=== PATIENT | male | born 2000 | race Caucasian/White ===

== ENCOUNTER 2020-06-18 17:23 | Emergency (ER) | payer OTHER, SELFPAY ==
--- NOTE | ~2020-06-18 | CT_ITS ---
EXAMINATION: CT HEAD WITHOUT CONTRAST CLINICAL INFORMATION: Trauma. Head injury. COMPARISON: None. TECHNIQUE: Contiguous helical images of the brain were obtained without IV contrast. Multiplanar reconstructions were performed. DLP: 789 mGy-cm. FINDINGS: There are no pathologic extra-axial fluid collections. The lateral, third, fourth ventricles are nondilated and concordant with the appearance of the sulci. There is no evidence for acute intraparenchymal hemorrhage or infarct. There is neither mass nor mass effect. There is no shift of midline structures. The paranasal sinuses and mastoid air cells are clear. There are no osseous lesions. CT/CT head/brain wo con IMPRESSION: No evidence for acute intracranial injury. Automated exposure control (Care Dose) Adjustment of the mA and/or kv according to patient size (this includes techniques or standardized protocols for targeted exams where dose is matched to indication / reason for exam; i.e. extremities or head).
[2020-06-18 20:23] VITALS: BP 148/100; PULSE 79; RESP 16; TEMP 36.8; O2SAT 98; BMI 31.0
--- NOTE | 2020-06-18 21:04 | ED_ITS ---
HPI - Fall General Chief Complaint: Fall Stated Complaint: FALL, HIT HEAD -WORK Time Seen by Provider: 06/18/20 21:02 Source: patient Mode of arrival: ambulatory Limitations: no limitations History of Present Illness HPI Narrative: 20-year-old male who slipped on the ice and fell backward hit his head, patient feels headache, feels spacey, intermittent blurry vision. Otherwise no neck pain, chest pain, or abdominal pain. Related Data Allergies Allergy/AdvReac Type Severity Reaction Status Date / Time No Known Allergies Allergy Verified 06/18/20 20:28 [No Known Allergies*] Review of Systems Review of Systems: All other systems are reviewed and are negative Constitutional: Reports as per HPI and Reports no additional constitutional complaints Eyes: Reports as per HPI and Reports no additional eye complaints Reports system reviewed and no additional complaints, except as documented Cardiovascular: Reports as per HPI and Reports no additional cardiovascular complaints Respiratory: Reports as per HPI and Reports no additional respiratory complaints Gastrointestinal: Reports as per HPI and Reports no additional gastrointestinal complaints Genitourinary: Reports no additional female genitourinary complaints Musculoskeletal: Reports no additional musculoskeletal complaints Skin/Breast: Reports system reviewed and no additional complaints, except as docu Psychiatric: Reports no additional psychiatric complaints Endocrine: Reports no additional endocrine complaints Hematologic/Lymphatic: Reports no additional hematologic/lymphatic complaints Allergic/Immunologic: Reports no additional allergic/immunologic complaints Reports system reviewed and no additional complaints, except as documented and Reports Abnormal speech present [facility] Past Medical History Medical History No known health problems No known health problems Social History Social History Advance Directives: No Advance Directives Information Provided: No Physical Exam Vital Signs: Vital Signs: Last Vital Signs Temp 98.2 F 06/18/20 20:23 Pulse 79 06/18/20 20:23 Resp 16 06/18/20 20:23 BP 148/100 H 06/18/20 20:23 Pulse Ox 98 06/18/20 20:23 Body Mass Index 31.0 Vital signs have been reviewed as appeared to be correct. Blood pressure in the high range. Heart rate normal. Respiration rate normal. Temperature normal. Oxygen saturation normal. Appearance: Alert. Oriented X3. No acute distress. Head: Normal external exam. Normocephalic. Atraumatic. No Jewell signs noted. No raccoon eyes noted Eyes: PERRLA. EOMI. Conjunctiva and sclera normal. Eyelids normal. ENT: TM's Normal. Pharynx normal. Uvula midline. Moist mucous membranes. No trismus noted. No drooling noted. No muffled voice noted. Neck: Normal inspection. Neck supple. FROM. No adenopathy. Thyroid Normal. No meningeal signs. No neck mass noted. CVS: Normal heart rate and rhythm. Heart sound normal. No murmurs noted. Pulses normal throughout. Respiratory: No respiratory distress. Painless inspiration. Breath sounds normal. No wheezes/rales/rhonchi noted. Chest nontender. No accessory muscle usage noted or decreased air movement noted. Abdomen: Soft and nontender. Bowel sounds normal in all 4 quadrants. No distention noted. No organomegaly noted. No visible injury noted. Back: No CVA tenderness. Full range of motion noted. Skin: Skin warm and dry. Normal skin color. Normal skin turgor. No rashes/lesions/lacerations noted. Extremities: No lower extremity edema. Extremities exhibit normal range of motion. Extremities nontender. Neuro: Oriented X 3. No motor deficit. No sensory deficit. Reflexes normal. GCS 15 Course Course Course Narrative: Fall with closed and minor head injury. Mild symptoms. GCS of 15, neuro exam is intact head CT was unremarkable. MDM - Fall Imaging Data CT scan - head: Radiologist's impression: No evidence for acute intracranial injury. Discharge Plan Discharge Clinical Impression: Fall, Closed head injury Patient Disposition: Home, Self-Care Instructions: Head Injury (ED) Referrals: Physician,Unknown [Primary Care Provider] - 2 days
== END 2020-06-18 22:34 | disposition home or self-care (01) ==
PROVIDERS: Emergency Provider Emergency Medicine
DX: S09.90XA Unspecified injury of head, initial encounter (principal); W00.0XXA Fall on same level due to ice and snow, initial encounter; Y93.89 Activity, other specified; Y92.9 Unspecified place or not applicable; Y99.0 Civilian activity done for income or pay
CPT/HCPCS: 70450; 99284

== ENCOUNTER 2022-04-22 17:31 | Emergency (ER) | payer OTHER, SELFPAY ==
[2022-04-22 17:32] VITALS: BP 131/87; PULSE 85; RESP 18; O2SAT 99; BMI 30.1
--- NOTE | 2022-04-22 17:34 | ECG_ITS ---
Test Reason : ANXIETY Blood Pressure : / mmHG Vent. Rate : 070 BPM Atrial Rate : 070 BPM P-R Int : 170 ms QRS Dur : 086 ms QT Int : 346 ms P-R-T Axes : 034 036 030 degrees QTc Int : 373 ms Normal sinus rhythm Normal ECG No previous ECGs available Referred By: Glendy Garner Electronically Signed By:Sheng Cagle
--- NOTE | 2022-04-22 17:35 | ED_ITS ---
HPI - Chest Pain General Chief Complaint: Anxiety <YENI Kaufman - Last Filed: 04/22/22 17:38> Stated Complaint: pressure in chest, fingers are tingly <YENI Kaufman - Last Filed: 04/22/22 17:38> Time Seen by Provider: 04/22/22 19:46 <YENI Kaufman - Last Filed: 04/22/22 17:38> Source: patient <Heather Hayes NP - Last Filed: 04/23/22 00:58> Mode of arrival: ambulatory <Heather Hayes NP - Last Filed: 04/23/22 00:58> Limitations: no limitations <Heather Hayes NP - Last Filed: 04/23/22 00:58> History of Present Illness HPI narrative: 22-year-old male presents with a sharp substernal chest pain with facial tingling and paresthesia to his fingers and his foot. States he gets paresthesia to his foot only when he is driving. He has had these episodes in the past but they have resolved quickly. He is concerned about cardiac comp lications at this time. He does not report palpitations, shortness of breath, dizziness, lightheadedness, weakness, nausea, vomiting, diarrhea fevers or chills. <Heather Hayes NP - Last Filed: 04/23/22 00:58> MD complaint: chest discomfort <Heather Hayes NP - Last Filed: 04/23/22 00:58> Timing of current episode: episodic <Heathre Hayes NP - Last Filed: 04/23/22 00:58> Prior episodes: Yes <Heather Hayes NP - Last Filed: 04/23/22 00:58> Onset: during rest <Heather Hayes NP - Last Filed: 04/23/22 00:58> Pain location: substernal and left chest <Heather Hayes NP - Last Filed: 04/23/22 00:58> Pain radiation: left arm and other (Faced) <JESSE Pickett Last Filed: 04/23/22 00:58> Severity: mild <Heather Hayes NP - Last Filed: 04/23/22 00:58> Quality: aching <Heather Hayes NP - Last Filed: 04/23/22 00:58> Relieving factors: nothing <Heather Hayes NP - Last Filed: 04/23/22 00:58> Treatment prior to arrival: none <Heather Hayes NP - Last Filed: 04/23/22 00:58> Risk Factors Coronary artery disease risk factors: none <Heather Hayes NP - Last Filed: 04/23/22 00:58> Thoracic aortic dissection risk factors: none <Heather Hayes NP - Last Filed: 04/23/22 00:58> Related Data Allergies/Adverse Reactions: Allergies Allergy/AdvReac Type Severity Reaction Status Date / Time No Known Allergies Allergy Verified 06/18/20 20:28 [No Known Allergies*] <YENI Kaufman - Last Filed: 04/22/22 17:38> Review of Systems 2 Review of Systems: Constitutional: No Fever, No Chills ENT/Mouth: No Ear Pain, No Hoarseness, No sore throat Eyes: No Eye Pain, No Swelling, No Redness, No Foreign Body Cardiovascular: Positive Chest Paindiscomfort, No SOB Respiratory: No Cough, No Dyspnea Gastrointestinal: No Nausea, No Vomiting, No Diarrhea, No abdominal Pain Genitourinary: No Dysuria, No Hematuria Musculoskeletal: No joint pain, No Myalgias, No Joint Swelling Skin: No rash Neuro: No Weakness, No Numbness, positive finger and foot Paresthesias, No Dizziness, No Headache Psych: No Anxiety/Panic, No Depression Heme/Lymph: no easy bruising, no Lymphadenopathy Endocrine: No Polyuria, No Polydipsia <Heather Hayes NP - Last Filed: 04/23/22 00:58> Yes all other systems are reviewed and are negative <Heather Hayes NP - Last Filed: 04/23/22 00:58> [facility] Past Medical History Attestation statement: The following information was validated with the patient. <Heather Hayes NP - Last Filed: 04/23/22 00:58> Source: old records reviewed <Heather Hayes NP - Last Filed: 04/23/22 00:58> Medical History: Medical History No known health problems No known health problems <YENI Kaufman - Last Filed: 04/22/22 17:38> Social History Social History: Social History Substance Use Type: Marijuana Advance Directives: No Advance Directives Information Provided: No <YENI Kaufman - Last Filed: 04/22/22 17:38> Physical Exam Vital Signs: Vital Signs: Last Vital Signs Temp 98.2 F 04/22/22 20:26 Pulse 68 04/22/22 20:26 Resp 16 04/22/22 20:26 BP 127/88 04/22/22 20:26 Pulse Ox 97 04/22/22 20:26 O2 Del Method 04/22/22 20:26 BMI result Body Mass Index 30.1 <YENI Kaufman - Last Filed: 04/22/22 17:38> Vital Signs: Last Vital Signs Temp 98.2 F 04/22/22 20:26 Pulse 68 04/22/22 20:26 Resp 16 04/22/22 20:26 BP 127/88 04/22/22 20:26 Pulse Ox 97 04/22/22 20:26 O2 Del Method 04/22/22 20:26 BMI result Body Mass Index 30.1 <Heather Hayes NP - Last Filed: 04/23/22 00:58> Appearance: Alert. Oriented X3. No acute distress. Eyes: Pupils equal, round and reactive to light. ENT: Pharynx normal. Neck: Normal inspection. Neck supple. CVS: Normal heart rate and rhythm. Pulses normal. Respiratory: No respiratory distress. Breath sounds normal. Abdomen: Soft and nontender. Skin: Skin warm and dry. Normal skin color. Normal skin turgor. Extremities: No lower extremity edema. Gait well-balanced well coordinated. Neuro: No motor deficit. No sensory deficit. Cranial nerves 2-12 intact <Heather Hayes NP - Last Filed: 04/23/22 00:58> Course Course Course Narrative: 22 yo male with history of high cholesterol presents to the ER with intermittent middle and left sided chest pains for the last few days. He reports the pains are sharp and come randomly, usually last about an hour and then go away. He states sometimes they are associated with perioral numbness and numbness of both of his hands. He reports difficulty concentrating and lightheadedness as well. Mom reports strong family history of cardiac issues including grandfather who had triple bypass at age 40. VSS on arrival and patient appears well. Will get EKG, CXR, lab workup. <YENI Kaufman - Last Filed: 04/22/22 17:38> 22 yo male with history of high cholesterol presents to the ER with intermittent middle and left sided chest pains for the last few days. He reports the pains are sharp and come randomly, usually last about an hour and then go away. He states sometimes they are associated with perioral numbness and numbness of both of his hands. He reports difficulty concentrating and lightheadedness as well. Mom reports strong family history of cardiac issues including grandfather who had triple bypass at age 40. VSS on arrival and patient appears well. Will get EKG, CXR, lab workup. 20:27 workup negative. I did discuss his negative workup, patient does have concerns because his grandfather was diagnosed with glioblastoma at age 50, and his father had open-heart surgery at age 49. At this time I do not feel that further imaging is required, patient can have an outpatient CT scan through his primary care physician if he is concerned about glioblastoma. Patient is neurologically intact, has full range of motion to all extremities, cranial nerves 2-12 intact. Patient does not have any indication for emergent CT scan at this time. Chest x-rays negative for acute findings. Troponins are negative. The patient's lab values are within normal limits. Low likelihood of ACS at this time. 00:56 COVID influenza RSV negative. I called this patient to update him as negative results. <Heather Hayes NP - Last Filed: 04/23/22 00:58> Medical Decision Making Differential Diagnosis Differential Diagnoses: The differential diagnosis associated with the presentation includes <Heather Hayes NP - Last Filed: 04/23/22 00:58> COVID, influenza, RSV, anxiety, ACS <Heather Hayes NP - Last Filed: 04/23/22 00:58> Admission/Observation Consideration of admission/observation: Escalation of care including admission/observation considered <Heather Hayes NP - Last Filed: 04/23/22 00:58> Patient does not require admission <Heather Hayes NP - Last Filed: 00:58> Lab Data MDM Lab Attestation statement: I reviewed the patient's lab results. <Heather Hayes NP - Last Filed: 04/23/22 00:58> Result Diagrams: : 04/22/22 18:37 04/22/22 18:37 <YENI Kaufman - Last Filed: 04/22/22 17:38> Labs: Lab Results 04/22/22 04/22/22 04/22/22 Range/Units 18:37 18:37 18:37 WBC 6.9 (4.8-10.8) X10*3/uL RBC 5.40 (4.60-5.80) X10*6/uL Hgb 15.0 (14.0-18.0) g/dl Hct 43.7 (42.0-52.0) % MCV 80.9 (80.0-98.0) fL MCH 27.8 (27.0-33.0) pg MCHC 34.3 (31.0-36.0) g/dl RDW 12.6 (11.0-16.0) % Plt Count 283 (160-400) X10*3/uL MPV 9.7 (9.4-12.4) fL Immature Gran % (Auto) 0.3 (0.0-0.4) % Neut % (Auto) 59.9 (45-73) % Lymph % (Auto) 30.2 (20-40) % Woodward % (Auto) 6.4 (2-11) % Eos % (Auto) 2.6 (0-4) % Baso % (Auto) 0.6 (0-2) % Lymph # (Auto) 2.1 (1.2-4.9) X10*3/uL Woodward # (Auto) 0.4 (0.1-1.2) X10*3/uL Eos # (Auto) 0.2 (0.0-0.4) X10*3/uL Baso # (Auto) 0.0 (0.0-0.2) X10*3/uL Abs Immat Gran (auto) 0.02 (0.00-0.03) X10*3/uL Absolute Neuts (auto) 4.1 (2.0-8.3) x10*3/uL Absolute Nucleated RBC 0.000 (0.0-0.012) X10*3/uL Nucleated RBC % (auto) 0.0 (0.0-0.2) /100WBC Sodium 139 (135-145) mmol/L Potassium 3.9 (3.3-5.1) mmol/L Chloride 104 (96-108) mmol/L Carbon Dioxide 25 (22-29) mmol/L Anion Gap 14 (12-20) BUN 16 (9-16) mg/dL Creatinine 0.87 (0.5-1.4) mg/dL Estim Creat Clear Calc 147.0 Estimated GFR > 60 Random Glucose 101 (60-115) mg/dL Calcium 9.9 (8.4-10.2) mg/dL Magnesium 2.3 (1.6-2.6) mg/dL Total Bilirubin 0.5 (0.0-1.0) mg/dL Direct Bilirubin 0.2 (0.0-0.5) mg/dL AST 24 (5-37) U/L ALT 22 (0-40) U/L Alkaline Phosphatase 61 (39-117) U/L Troponin I High Sens < 3.5 (<3.5-35.0) ng/L Total Protein 7.7 (6.5-8.0) g/dL Albumin 4.7 (3.5-5.0) g/dL Influenza Type A (PCR) (Negative) Influenza Type B (PCR) (Negative) RSV RNA Qual (PCR) (Negative) SARS-CoV-2 RNA (RT-PCR) (Negative) 04/22/22 Range/Units 20:25 WBC (4.8-10.8) X10*3/uL RBC (4.60-5.80) X10*6/uL Hgb (14.0-18.0) g/dl Hct (42.0-52.0) % MCV (80.0-98.0) fL MCH (27.0-33.0) pg MCHC (31.0-36.0) g/dl RDW (11.0-16.0) % Plt Count (160-400) X10*3/uL MPV (9.4-12.4) fL Immature Gran % (Auto) (0.0-0.4) % Neut % (Auto) (45-73) % Lymph % (Auto) (20-40) % Woodward % (Auto) (2-11) % Eos % (Auto) (0-4) % Baso % (Auto) (0-2) % Lymph # (Auto) (1.2-4.9) X10*3/uL Woodward # (Auto) (0.1-1.2) X10*3/uL Eos # (Auto) (0.0-0.4) X10*3/uL Baso # (Auto) (0.0-0.2) X10*3/uL Abs Immat Gran (auto) (0.00-0.03) X10*3/uL Absolute Neuts (auto) (2.0-8.3) x10*3/uL Absolute Nucleated RBC (0.0-0.012) X10*3/uL Nucleated RBC % (auto) (0.0-0.2) /100WBC Sodium (135-145) mmol/L Potassium (3.3-5.1) mmol/L Chloride (96-108) mmol/L Carbon Dioxide (22-29) mmol/L Anion Gap (12-20) BUN (9-16) mg/dL Creatinine (0.5-1.4) mg/dL Estim Creat Clear Calc Estimated GFR Random Glucose (60-115) mg/dL Calcium (8.4-10.2) mg/dL Magnesium (1.6-2.6) mg/dL Total Bilirubin (0.0-1.0) mg/dL Direct Bilirubin (0.0-0.5) mg/dL AST (5-37) U/L ALT (0-40) U/L Alkaline Phosphatase (39-117) U/L Troponin I High Sens (<3.5-35.0) ng/L Total Protein (6.5-8.0) g/dL Albumin (3.5-5.0) g/dL Influenza Type A (PCR) NEGATIVE (Negative) Influenza Type B (PCR) NEGATIVE (Negative) RSV RNA Qual (PCR) NEGATIVE (Negative) SARS-CoV-2 RNA (RT-PCR) NEGATIVE (Negative) <YENI Kaufman - Last Filed: 04/22/22 17:38> Lab Results 04/22/22 04/22/22 04/22/22 Range/Units 18:37 18:37 18:37 WBC 6.9 (4.8-10.8) X10*3/uL RBC 5.40 (4.60-5.80) X10*6/uL Hgb 15.0 (14.0-18.0) g/dl Hct 43.7 (42.0-52.0) % MCV 80.9 (80.0-98.0) fL MCH 27.8 (27.0-33.0) pg MCHC 34.3 (31.0-36.0) g/dl RDW 12.6 (11.0-16.0) % Plt Count 283 (160-400) X10*3/uL MPV 9.7 (9.4-12.4) fL Immature Gran % (Auto) 0.3 (0.0-0.4) % Neut % (Auto) 59.9 (45-73) % Lymph % (Auto) 30.2 (20-40) % Woodward % (Auto) 6.4 (2-11) % Eos % (Auto) 2.6 (0-4) % Baso % (Auto) 0.6 (0-2) % Lymph # (Auto) 2.1 (1.2-4.9) X10*3/uL Woodward # (Auto) 0.4 (0.1-1.2) X10*3/uL Eos # (Auto) 0.2 (0.0-0.4) X10*3/uL Baso # (Auto) 0.0 (0.0-0.2) X10*3/uL Abs Immat Gran (auto) 0.02 (0.00-0.03) X10*3/uL Absolute Neuts (auto) 4.1 (2.0-8.3) x10*3/uL Absolute Nucleated RBC 0.000 (0.0-0.012) X10*3/uL Nucleated RBC % (auto) 0.0 (0.0-0.2) /100WBC Sodium 139 (135-145) mmol/L Potassium 3.9 (3.3-5.1) mmol/L Chloride 104 (96-108) mmol/L Carbon Dioxide 25 (22-29) mmol/L Anion Gap 14 (12-20) BUN 16 (9-16) mg/dL Creatinine 0.87 (0.5-1.4) mg/dL Estim Creat Clear Calc 147.0 Estimated GFR > 60 Random Glucose 101 (60-115) mg/dL Calcium 9.9 (8.4-10.2) mg/dL Magnesium 2.3 (1.6-2.6) mg/dL Total Bilirubin 0.5 (0.0-1.0) mg/dL Direct Bilirubin 0.2 (0.0-0.5) mg/dL AST 24 (5-37) U/L ALT 22 (0-40) U/L Alkaline Phosphatase 61 (39-117) U/L Troponin I High Sens < 3.5 (<3.5-35.0) ng/L Total Protein 7.7 (6.5-8.0) g/dL Albumin 4.7 (3.5-5.0) g/dL Influenza Type A (PCR) (Negative) Influenza Type B (PCR) (Negative) RSV RNA Qual (PCR) (Negative) SARS-CoV-2 RNA (RT-PCR) (Negative) 04/22/22 Range/Units 20:25 WBC (4.8-10.8) X10*3/uL RBC (4.60-5.80) X10*6/uL Hgb (14.0-18.0) g/dl Hct (42.0-52.0) % MCV (80.0-98.0) fL MCH (27.0-33.0) pg MCHC (31.0-36.0) g/dl RDW (11.0-16.0) % Plt Count (160-400) X10*3/uL MPV (9.4-12.4) fL Immature Gran % (Auto) (0.0-0.4) % Neut % (Auto) (45-73) % Lymph % (Auto) (20-40) % Woodward % (Auto) (2-11) % Eos % (Auto) (0-4) % Baso % (Auto) (0-2) % Lymph # (Auto) (1.2-4.9) X10*3/uL Woodward # (Auto) (0.1-1.2) X10*3/uL Eos # (Auto) (0.0-0.4) X10*3/uL Baso # (Auto) (0.0-0.2) X10*3/uL Abs Immat Gran (auto) (0.00-0.03) X10*3/uL Absolute Neuts (auto) (2.0-8.3) x10*3/uL Absolute Nucleated RBC (0.0-0.012) X10*3/uL Nucleated RBC % (auto) (0.0-0.2) /100WBC Sodium (135-145) mmol/L Potassium (3.3-5.1) mmol/L Chloride (96-108) mmol/L Carbon Dioxide (22-29) mmol/L Anion Gap (12-20) BUN (9-16) mg/dL Creatinine (0.5-1.4) mg/dL Estim Creat Clear Calc Estimated GFR Random Glucose (60-115) mg/dL Calcium (8.4-10.2) mg/dL Magnesium (1.6-2.6) mg/dL Total Bilirubin (0.0-1.0) mg/dL Direct Bilirubin (0.0-0.5) mg/dL AST (5-37) U/L ALT (0-40) U/L Alkaline Phosphatase (39-117) U/L Troponin I High Sens (<3.5-35.0) ng/L Total Protein (6.5-8.0) g/dL Albumin (3.5-5.0) g/dL Influenza Type A (PCR) NEGATIVE (Negative) Influenza Type B (PCR) NEGATIVE (Negative) RSV RNA Qual (PCR) NEGATIVE (Negative) SARS-CoV-2 RNA (RT-PCR) NEGATIVE (Negative) <Heather Hayes NP - Last Filed: 04/23/22 00:58> Independent Interpretation I performed an independent interpretation of an: EKG and Plain X-Ray <Heather Hayes NP - Last Filed: 04/23/22 00:58> Radiology Impression Discussion of test interpretation with radiology: I have reviewed the radiologist's reading. <Heather Hayes NP - Last Filed: 04/23/22 00:58> Radiologist Impression: EXAMINATION: XR CHEST CLINICAL INFORMATION: Chest pain. COMPARISON: Chest CT dated 09/14/2015. TECHNIQUE: 2 views of the chest were obtained. FINDINGS: No significant abnormality is noted involving the heart, lungs, mediastinum, bony thorax or soft tissues. XR/XR chest 2V IMPRESSION: No acute cardiopulmonary process. <Heather Hayes NP - Last Filed: 04/23/22 00:58> Independent Historian Clinical information obtained from an independent historian. History obtained from or confirmed by: Parent <Heather Hayes NP - Last Filed: 04/23/22 00:58> Discharge Plan Discharge Clinical Impression: Acute anxiety, Chest discomfort <YENI Kaufman - Last Filed: 04/22/22 17:38> Patient Disposition: Home, Self-Care <YENI Kaufman - Last Filed: 04/22/22 17:38> Instructions: Noncardiac Chest Pain (ED), Anxiety (ED) <YENI Kaufman - Last Filed: 04/22/22 17:38> Additional Instructions: You were evaluated for noncardiac chest pain. Your chest x-ray is negative. Your cardiac enzymes are 0. Your EKG is normal sinus. Your lab values are unremarkable. This is a low likelihood for a cardiac event. You do have a family history of glioblastoma, please follow-up with your primary care physician for an outpatient CT scan of your head. Your COVID influenza RSV tests are pending. I will call you with your results. Thank you for choosing this emergency department for evaluation. Please follow-up with primary care physician as needed. Return to the emergency department for any new, concerning, or worsening symptoms. <YENI Kaufman - Last Filed: 04/22/22 17:38> Stand Alone Forms: Work/School Release <YENI Kaufman - Last Filed: 04/22/22 17:38> Interventions: ED Discharge Assessment Last Done: 04/22/22 20:41 <YENI Kaufman - Last Filed: 04/22/22 17:38> Discharge Date/Time: 04/22/22 20:42 <YENI Kaufman - Last Filed: 04/22/22 17:38>
[2022-04-22 18:51] LABS: MANUAL DIFF FLAG NO
[2022-04-22 18:55] LABS: Basophils Percent Auto 0.6 % (0-2); Eosinophils Absolute Auto 0.2 X10*3/uL (0.0-0.4); Eosinophils Percent Auto 2.6 % (0-4); Hematocrit 43.7 % (42.0-52.0); Imm Gran Abs Auto 0.02 X10*3/uL (0.00-0.03); Imm Gran Pct Auto 0.3 % (0.0-0.4); Lymphocytes Absolute Auto 2.1 X10*3/uL (1.2-4.9); Lymphocytes Percent Auto 30.2 % (20-40); Mean Corpuscular HGB Conc 34.3 g/dl (31.0-36.0); Mean Corpuscular Hemoglobin 27.8 pg (27.0-33.0); Mean Corpuscular Volume 80.9 fL (80.0-98.0); Mean Platelet Volume 9.7 fL (9.4-12.4); Monocytes Absolute Auto 0.4 X10*3/uL (0.1-1.2); Monocytes Percent Auto 6.4 % (2-11); Neutrophils Absolute Auto 4.1 x10*3/uL (2.0-8.3); Neutrophils Percent Auto 59.9 % (45-73); Platelet Count 283 X10*3/uL (160-400); Red Cell Distribution Width 12.6 % (11.0-16.0); White Blood Count 6.9 X10*3/uL (4.8-10.8)
[2022-04-22 19:20] LABS: Alanine Aminotransferase 22 U/L (0-40); Albumin Level 4.7 g/dL (3.5-5.0); Alkaline Phosphatase 61 U/L (39-117); Anion Gap 14 (12-20); Aspartate Amino Transferase 24 U/L (5-37); Bilirubin Direct 0.2 mg/dL (0.0-0.5); Bilirubin Total 0.5 mg/dL (0.0-1.0); Blood Urea Nitrogen 16 mg/dL (9-16); Calcium 9.9 mg/dL (8.4-10.2); Carbon Dioxide 25 mmol/L (22-29); Chloride 104 mmol/L (96-108); Estimated Glomerular Filt Rate > 60; Glucose Random 101 mg/dL (60-115); Magnesium 2.3 mg/dL (1.6-2.6); Potassium 3.9 mmol/L (3.3-5.1); Sodium 139 mmol/L (135-145); Total Protein 7.7 g/dL (6.5-8.0)
[2022-04-22 19:29] LABS: Troponin-I High Sensitivity < 3.5 ng/L (<3.5-35.0)
[2022-04-22 20:26] VITALS: BP 127/88; PULSE 68; RESP 16; TEMP 36.8; O2SAT 97
[2022-04-22 21:11] LABS: Influenza A PCR NEGATIVE (Negative); Influenza B PCR NEGATIVE (Negative); Resp Syncy Virus RNA Qual PCR NEGATIVE (Negative); SARS COV2 PCR INHOUSE NEGATIVE (Negative)
== END 2022-04-22 20:42 | disposition home or self-care (01) ==
PROVIDERS: Nurse Practitioner Family; Physician Assistant; Emergency Provider Emergency Medicine; PCP Internal Medicine
DX: R07.89 Other chest pain (principal); R20.2 Paresthesia of skin; F41.1 Generalized anxiety disorder; F43.0 Acute stress reaction; Z20.822 Contact with and (suspected) exposure to COVID-19; Z79.899 Other long term (current) drug therapy
CPT/HCPCS: 0241U; 36415; 71046; 80048; 80076; 83735; 84484; 85025; 93005; 99283

== ENCOUNTER 2022-10-26 20:05 | Emergency (ER) | payer OTHER, SELFPAY ==
--- NOTE | ~2022-10-26 | US_ITS ---
EXAMINATION: US ABDOMEN LIMITED CLINICAL INFORMATION: Right upper quadrant pain. COMPARISON: None available. TECHNIQUE: Real-time imaging of the right upper quadrant abdominal viscera. FINDINGS: PANCREAS: Normal. LIVER: The liver is normal in size. The liver contour is normal. Parenchymal echogenicity is increased. No focal hepatic lesion. There is no intrahepatic biliary duct dilatation seen. GALLBLADDER: Normal. The gallbladder is physiologically distended without evidence of stones, sludge, polyps, wall thickening or pericholecystic fluid. COMMON BILE DUCT: Normal in caliber measuring 0.3 cm in diameter. RIGHT KIDNEY: Normal. No hydronephrosis. No renal calculi or focal parenchymal lesions. The kidney measures 10.0 cm in maximum dimension. FREE FLUID: None. US/US abdomen limited IMPRESSION: Mild hepatic steatosis without focal lesion. Gallbladder, CBD and the right kidney is unremarkable
[2022-10-26 20:13] VITALS: BP 127/95; PULSE 69; RESP 18; TEMP 36.3; O2SAT 98; BMI 27.1
--- NOTE | 2022-10-26 20:14 | ED.ABDPAIN ---
HPI - Abdominal Pain General Chief Complaint: Abdominal Pain Stated Complaint: Abdominal Pain Time Seen by Provider: 10/26/22 21:28 Source: patient, RN notes reviewed and old records reviewed Mode of arrival: ambulatory Limitations: no limitations History of Present Illness HPI narrative: A 22-year-old male who denies any past medical history presents for evaluation of abdominal pain Patient reports upper abdominal pain that started about 3 days ago. Denies any nausea vomiting fevers, chills. He reports some diarrhea started up over the last 2 days Denies any black or bloody stool Denies any history abdominal surgeries He has not taken any medications to help alleviate his symptoms No other complaints or concerns at this time Related Data Previous Rx's Medication Instructions Recorded calcium carbonate 1,000 1 tab PO QID PRN indigestion #20 10/26/22 mg-simethicone 60 mg chewable tabs tablet (Antacid Anti-Gas (calcium carb-simeth)) Allergies Allergy/AdvReac Type Severity Reaction Status Date / Time No Known Allergies Allergy Verified 06/18/20 20:28 [No Known Allergies*] Review of Systems Constitutional: Reports as per HPI, Denies chills, Denies fatigue, Denies fever(s) and Denies headache(s) Denies headache(s) Cardiovascular: Denies chest pain and Denies dyspnea Respiratory: Denies cough and Denies dyspnea Gastrointestinal: Reports abdominal pain, Denies hematochezia, Denies constipation, Reports loose stools and Denies vomiting Genitourinary: Denies difficulty urinating and Denies dysuria Denies headache(s) and Denies focal weakness Endocrine: Denies fatigue PMFSH Past Medical History Medical History No known health problems No known health problems Social History Social History Substance Use Type: Marijuana Advance Directives: No Advance Directives Information Provided: No Physical Exam ED Vital Signs: Vital Signs - 24 hr 10/26/22 20:13 Temperature 97.3 F Pulse Rate 69 Respiratory Rate 18 Blood Pressure 127/95 H Pulse Oximetry 98 Oxygen Delivery Method Room Air BMI result Body Mass Index 27.1 Const General: healthy appearing, comfortable, no acute distress, alert and awake Nutritional Appearance: well nourished Orientation/consciousness: patient oriented x3 HENMT Head: Yes normocephalic and Yes atraumatic Eyes Eyelids: Yes eyelids normal Conjunctivae: conjunctivae normal Sclerae: sclerae normal Corneas: corneas normal Pupils: Equal, round and reactive pupils present EOM: EOMs intact bilaterally Neck Neck: Yes full ROM Resp Effort & Inspection: normal respiratory effort, able to speak in complete sentences and not labored GI Inspection: No distended Palpation (GI): Soft to palpation, not firm, Tenderness to palpation present (GI) in the epigastrum, in the LUQ and in the RUQ, no guarding and not rigid Auscultation: normoactive bowel sounds Skin General skin exam: no rashes or lesions noted and elasticity normal Neuro General: patient oriented x3 Cranial nerves: Yes Equal, round and reactive pupils present and Yes Bilaterally intact EOM present Cognition (Neuro): normal cognition Extrem Other: Moving all extremities well without any obvious deformities Course Course Course Narrative: RME: 22yo M w/no sig PMHx c/o upper abdominal pain x1 week worsening x3 days, sent in from for suspected gallbladder dz. Admits eating makes pain worse. denies fever, N/V, urinary sx Abdomen soft, +RUQ/epigastic ttp, +Phillips's Labs, UA, US ordered Full HPI, ROS and PE to be performed by primary ED provider. Medical Decision Making Medical Decision Making [facility] Narrative: 22-year-old male presents for evaluation of upper abdominal pain, his pain is unrelated to eating. He denies nausea vomiting but endorses diarrhea. He is tender in epigastric and right upper quadrant. Abdomen is soft, nondistended. Less likely to be surgical abdomen. Ultrasound gallbladder shows no evidence of gallstones or cholecystitis. His labs are without significant abnormality. Symptoms most likely related to viral gastroenteritis which was discussed with the patient. Differential Diagnosis Abdominal pain Gastritis Gastroenteritis Peptic ulcer disease Cholelithiasis Acute cholecystitis Admission/Observation Consideration of admission/observation: Escalation of care including admission/observation considered (And was felt to not be necessary after the patient's labs did not show any concerning abnormalities the patient's ultrasound did not show any evidence of biliary disease) Lab Data [facility] Lab Attestation statement: I reviewed the patient's lab results. (No leukocytosis, no left shift. Creatinine within normal limits, GFR over 60, electrolytes within normal limits. LFTs within normal limits) 10/26/22 20:22 10/26/22 20:22 Labs: Lab Results 10/26/22 10/26/22 Range/Units 20:22 20:22 WBC 8.0 (4.8-10.8) X10*3/uL RBC 5.40 (4.60-5.80) X10*6/uL Hgb 14.7 (14.0-18.0) g/dl Hct 44.7 (42.0-52.0) % MCV 82.8 (80.0-98.0) fL MCH 27.2 (27.0-33.0) pg MCHC 32.9 (31.0-36.0) g/dl RDW 13.2 (11.0-16.0) % Plt Count 253 (160-400) X10*3/uL MPV 9.5 (9.4-12.4) fL Immature Gran % (Auto) 0.2 (0.0-0.4) % Neut % (Auto) 56.2 (45-73) % Lymph % (Auto) 31.1 (20-40) % Marshall % (Auto) 9.3 (2-11) % Eos % (Auto) 2.7 (0-4) % Baso % (Auto) 0.5 (0-2) % Lymph # (Auto) 2.5 (1.2-4.9) X10*3/uL Marshall # (Auto) 0.8 (0.1-1.2) X10*3/uL Eos # (Auto) 0.2 (0.0-0.4) X10*3/uL Baso # (Auto) 0.0 (0.0-0.2) X10*3/uL Abs Immat Gran (auto) 0.02 (0.00-0.03) X10*3/uL Absolute Neuts (auto) 4.5 (2.0-8.3) x10*3/uL Absolute Nucleated RBC 0.000 (0.0-0.012) X10*3/uL Nucleated RBC % (auto) 0.0 (0.0-0.2) /100WBC Sodium 135 (135-145) mmol/L Potassium 4.0 (3.3-5.1) mmol/L Chloride 102 (96-108) mmol/L Carbon Dioxide 27 (22-29) mmol/L Anion Gap 10 L (12-20) BUN 23 H (9-16) mg/dL Creatinine 0.95 (0.5-1.4) mg/dL Estim Creat Clear Calc 131.6 Estimated GFR > 60 Random Glucose 97 (60-115) mg/dL Calcium 9.7 (8.4-10.2) mg/dL Magnesium 2.2 (1.6-2.6) mg/dL Total Bilirubin 0.5 (0.0-1.0) mg/dL Direct Bilirubin 0.1 (0.0-0.5) mg/dL AST 24 (5-37) U/L ALT 29 (0-40) U/L Alkaline Phosphatase 56 (39-117) U/L Total Protein 8.2 H (6.5-8.0) g/dL Albumin 4.5 (3.5-5.0) g/dL Lipase 23 (8-78) U/L Radiology Impression Discussion of test interpretation with radiology: I have reviewed the radiologist's reading. (No evidence of gallstones or acute cholecystitis) Discharge Plan Discharge Clinical Impression: Abdominal pain Patient Disposition: Home, Self-Care Instructions: Gastroenteritis (ED) Additional Instructions: Your workup in the emergency department today was reassuring. Next this includes your blood work, ultrasound. Your symptoms are most likely attributed to a viral gastroenteritis You may take Maalox for breakthrough abdominal pain. Use this as needed for abdominal cramps Avoid spicy, greasy foods Hydrate well Prescriptions: New Antacid Anti-Gas (ca carb-sim) 1,000-60 mg tablet,chewable 1 tab PO QID PRN (Reason: indigestion) Qty: 20 0RF
[2022-10-26 20:29] LABS: MANUAL DIFF FLAG NO
[2022-10-26 20:30] LABS: Basophils Percent Auto 0.5 % (0-2); Eosinophils Absolute Auto 0.2 X10*3/uL (0.0-0.4); Eosinophils Percent Auto 2.7 % (0-4); Hematocrit 44.7 % (42.0-52.0); Hemoglobin 14.7 g/dl (14.0-18.0); Imm Gran Abs Auto 0.02 X10*3/uL (0.00-0.03); Imm Gran Pct Auto 0.2 % (0.0-0.4); Lymphocytes Absolute Auto 2.5 X10*3/uL (1.2-4.9); Lymphocytes Percent Auto 31.1 % (20-40); Mean Corpuscular HGB Conc 32.9 g/dl (31.0-36.0); Mean Corpuscular Hemoglobin 27.2 pg (27.0-33.0); Mean Corpuscular Volume 82.8 fL (80.0-98.0); Mean Platelet Volume 9.5 fL (9.4-12.4); Monocytes Absolute Auto 0.8 X10*3/uL (0.1-1.2); Monocytes Percent Auto 9.3 % (2-11); Neutrophils Absolute Auto 4.5 x10*3/uL (2.0-8.3); Neutrophils Percent Auto 56.2 % (45-73); Platelet Count 253 X10*3/uL (160-400); Red Cell Distribution Width 13.2 % (11.0-16.0)
[2022-10-26 20:44] LABS: Alanine Aminotransferase 29 U/L (0-40); Albumin Level 4.5 g/dL (3.5-5.0); Alkaline Phosphatase 56 U/L (39-117); Anion Gap 10 (12-20); Aspartate Amino Transferase 24 U/L (5-37); Bilirubin Direct 0.1 mg/dL (0.0-0.5); Bilirubin Total 0.5 mg/dL (0.0-1.0); Blood Urea Nitrogen 23 mg/dL (9-16); Calcium 9.7 mg/dL (8.4-10.2); Carbon Dioxide 27 mmol/L (22-29); Chloride 102 mmol/L (96-108); Creatinine Clr Calc Pharmacy 131.6; Estimated Glomerular Filt Rate > 60; Glucose Random 97 mg/dL (60-115); Lipase 23 U/L (8-78); Magnesium 2.2 mg/dL (1.6-2.6); Sodium 135 mmol/L (135-145); Total Protein 8.2 g/dL (6.5-8.0)
== END 2022-10-26 22:22 | disposition home or self-care (01) ==
PROVIDERS: Physician Assistant; Emergency Provider Student in an Organized Health Care Education/Training Program; PCP Internal Medicine
DX: R10.11 Right upper quadrant pain (principal)
CPT/HCPCS: 36415; 76705; 80048; 80076; 83690; 83735; 85025; 99282; 99284

== ENCOUNTER 2024-04-27 11:37 | Emergency (ER) | payer OTHER, SELFPAY ==
--- NOTE | ~2024-04-27 | CT_ITS ---
CLINICAL HISTORY: fall with posterior head strike on pavement CT head without contrast Comparison: [place] - CT HEAD/BRAIN WO CON - 06/18/20 21:17 EST Findings: No intra-axial mass, midline shift, hydrocephalus, or acute hemorrhage. No significant atrophy-like change or white matter disease. Small mucous retention cyst within the left maxillary sinus. The orbits are within normal limits. No skull fracture. IMPRESSION: No skull fracture or intracranial hemorrhage. This document has been electronically signed by: Rosio Wilkes MD on 04/27/2024 16:55:37
--- NOTE | ~2024-04-27 | XR_ITS ---
CLINICAL HISTORY: fall onto left upper arm 2 view left humerus Comparison: None Findings: No fractures or dislocations. No significant arthritic change. No radiopaque foreign body. IMPRESSION: 1. Normal left humerus This document has been electronically signed by: Rosio Wilkes MD on 04/27/2024 13:50:50
--- NOTE | ~2024-04-27 | CT_ITS ---
CLINICAL HISTORY: falll, posterior HS on pavement, L neck pain CT cervical spine without contrast Comparison: None Findings: Vertebral alignment is within normal limits. No significant degenerative change. There is a mild chronic appearing compression fracture involving the superior endplate of T1. No acute cervical spine fracture. Visualized intracranial contents are unremarkable. No cervical fluid collections or masses. Lung apices are clear. IMPRESSION: No acute cervical spine fracture. This document has been electronically signed by: Rosio Wilkes MD on 04/27/2024 16:52:23
--- NOTE | ~2024-04-27 | XR_ITS ---
CLINICAL HISTORY: fall onto left elbow, pain w flexion 3 view left elbow Comparison: None Findings: Bones intact. No dislocations. No significant loss of joint space, osteophytes, or erosions. No joint effusion. No radiopaque foreign body. IMPRESSION: 1. No acute findings This document has been electronically signed by: Rosio Wilkes MD on 04/27/2024 13:48:50
--- NOTE | ~2024-04-27 | XR_ITS ---
CLINICAL HISTORY: fall onto L shoulder, pain on abduction 3 view left shoulder Comparison: None Findings: No fractures or dislocations. No significant arthritic change. No erosions. No radiopaque foreign body. IMPRESSION: 1. No acute findings This document has been electronically signed by: Rosio Wilkes MD on 04/27/2024 13:51:03
[2024-04-27 11:57] VITALS: BP 144/77; PULSE 83; RESP 20; TEMP 36.7; O2SAT 99; BMI 30.9
--- NOTE | 2024-04-27 11:57 | ED_ITS ---
HPI - Extremity Injury (Upper) General Chief Complaint: Fall Stated Complaint: fall on ice, shoulder/elbow pain Time Seen by Provider: 04/27/24 15:31 Source: patient Mode of arrival: ambulatory Limitations: no limitations History of Present Illness ED Provider: Kennedi Bailey PA-C HPI narrative: Patient is a 24 year old assigned male at with no reported medical history presenting to the emergency department today with left shoulder and elbow pain after slipping on the ice. Patient states that today he slipped on the ice, landing on his back and injuring his left shoulder / elbow. Patient denies any loss of consciousness with the incident, dizziness, lightheadedness, abdominal pain, nausea, vomiting, fever, chills, blurry vision, double vision, loss of vision, chest pain, difficulty breathing, shortness of breath, back pain, night sweats, pain with urination, increased urinary frequency, increased urinary urgency, blood in his urine or stool, syncope or a near syncopal episode, bowel incontinence, bladder incontinence, or any other complaints at this time. Patient states that he is having some numbness and tingling going down the pinky side of his left arm and is having a hard time getting his left arm to be comfortable. Associated symptoms: denies other symptoms Related Data Previous Rx's ?Medication ?Instructions ?Recorded calcium carbonate 1,000 1 tab PO QID PRN indigestion #20 10/26/22 mg-simethicone 60 mg chewable tabs tablet (Antacid Anti-Gas (calcium carb-simeth)) Allergies Allergy/AdvReac Type Severity Reaction Status Date / Time No Known Allergies Allergy Verified 04/27/24 11:59 [No Known Allergies*] Review of Systems Constitutional: Constitutional: Reports no additional constitutional complaints, Denies chills, Denies fever(s) and Denies night sweats Eyes: Eyes: Reports no additional eye complaints, Denies blurry vision, Denies change in vision, Denies diplopia, Denies eye discharge, Denies loss of vision and Denies eye pain ENT: Denies dizziness Cardiovascular: Cardiovascular: Reports no additional cardiovascular complaints, Denies chest pain, Denies lightheadedness, Denies Loss of Consciousness and Denies dyspnea Respiratory: Respiratory: Reports no additional respiratory complaints and Denies dyspnea Gastrointestinal: Gastrointestinal: Reports no additional gastrointestinal complaints, Denies abdominal pain, Denies melena, Denies hematochezia, Denies change in bowel habits and Denies change in stool character Genitourinary: Genitourinary: Reports no additional male genitourinary complaints, Denies hematuria, Denies oliguria, Denies difficulty urinating, Denies dysuria, Denies urinary frequency, Denies urinary hesitancy, Denies urinary incontinence and Denies urinary urgency Musculoskeletal: Musculoskeletal: Reports no additional musculoskeletal complaints Comments: left elbow and shoulder pain tingling down the pinky finger side of his left arm Neurologic: Denies dizziness and Denies loss of vision Psychiatric: Psychiatric: Reports no additional psychiatric complaints Endocrine: Endocrine: Reports no additional endocrine complaints Hematologic/Lymphatic: Hematologic/Lymphatic: Reports no additional hematologic/lymphatic complaints Allergic/Immunologic: Allergic/Immunologic: Reports no additional allergic/immunologic complaints PMFSH Past Medical History Attestation statement: The following information was validated with the patient. Source: old records reviewed and nursing notes reviewed Medical History No known health problems No known health problems Social History Social History Substance Use Type: Marijuana Advance Directives: No Advance Directives Information Provided: Yes Do you have a plan to hurt others: No Plan Physical Exam Vital Signs: Vital Signs: Last Vital Signs Temp 98.6 F 04/27/24 17:18 Pulse 78 04/27/24 17:18 Resp 18 04/27/24 17:18 BP 132/86 04/27/24 17:18 Pulse Ox 98 04/27/24 17:18 O2 Del Method Room Air 04/27/24 17:18 BMI result Body Mass Index 30.9 Const: General: cooperative, no acute distress, alert and awake Nutritional Appearance: well nourished Orientation/consciousness: patient oriented x3 Limitations: no limitations HEENT: Head: Yes normal to inspection and Yes atraumatic Ears: hearing grossly normal bilaterally and external ears normal General nose exam: Normal external nose present, no nasal discharge noted and no epistaxis Face and sinus: Yes normal facial exam, No abrasion and No laceration Mouth: Normal oral and palatal mucosa present, no drooling and no muffled voice Eyes: General: appearance normal, both eyes and all related structures Periorbital: periorbital findings normal Eyelids: Yes eyelids normal Conjunctivae: conjunctivae normal Pupils: Equal, round and reactive pupils present EOM: EOMs intact bilaterally Neck: Neck: Yes normal visual inspection, Yes full ROM and Yes no lymphadenopathy Chest: Chest palpation & inspection: normal inspection of the chest Resp: Effort & Inspection: normal respiratory effort and able to speak in complete sentences GI: Inspection: Yes normal to inspection Neuro: General: patient oriented x3 and moves all extremities Cranial nerves: Yes Equal, round and reactive pupils present Cognition (Neuro): normal cognition Extrem: Other: patient has appropriate sensation to the entire left upper extremity as well as appropriate ROM and strength General: Yes normal to inspection, Yes full ROM and Yes capillary refill normal Psych: Appearance: grossly normal Mental Status: mental status grossly normal Affect: normal affect Attitude: cooperative Thought process: Normal thought process present Thought content: Normal thought content present Insight: Good insight present (Psych) Course Course Course Narrative: This is a Rapid Medical Examination (RME) performed by Kiana Urbano PA-C in triage. Full HPI, ROS, assessment and treatment plan per primary provider in the Main ED. 24 yo male here for eval of left shoulder and left elbow pain s/p slip and fall backwards with impact primarily on left shoulder. admits to head strike - no LOC but was groggy . not on AC. + AOX3. exam nonfocal. no palpable skull fx. PERRLA. pain w/ leftward motion of c spine. ttp over left shoulder and posterior left elbow. pain/ limited ROM on abduction of L shoulder. pain on flexion of L elbow. Plan: imaging Medications Administered Discontinued Medications Generic Name Dose Route Start Last Admin Trade Name Giorgioq PRN Reason Stop Dose Admin Ketorolac Tromethamine 15 mg 04/27/24 17:06 04/27/24 17:16 Ketorolac Tromethamine 15 Mg/Ml Vial IM 04/27/24 17:07 15 mg ONCE ONE Administration Medical Decision Making Medical Decision Making [facility] Narrative: Patient is a 24 year old assigned male at with no reported medical history presenting to the emergency department today with left shoulder and elbow pain after slipping on the ice. Patient's physical exam was as noted in the physical exam portion of this note. Patient's left humerus, shoulder, and elbow x-rays showed no acute process. Patient's CT head and c-spine showed no acute process. Patient's clinical presentation is most consistent with a left ulnar nerve injury that will likely resolve in the coming days. I explained my physical exam findings as well as all test results to the patient. I answered all questions asked by the patient. I stressed the importance of the patient taking his medication as directed (either prescribed or as the over the counter packaging recommends). I stressed the importance of the patient following up with his primary care provider, an orthopedic provider, and given this was a work related incident (as reported to registration and the triage nurse) - work connection. I stressed the importance of the patient returning to the emergency department immediately if his symptoms were to worsen or if he were to develop any dizziness, shortness of breath, difficulty breathing, chest pain, blurry vision, loss of vision, nausea, vomiting, abdominal pain, fever, chills, back pain, or any other complaints. Patient verbalized agreement and understanding with this treatment plan and discharge. Differential Diagnosis Differential Diagnoses: The differential diagnosis associated with the presentation includes Left ulnar nerve injury Left elbow pain Left elbow sprain Left shoulder pain Left shoulder sprain Contusion Admission/Observation Consideration of admission/observation: Escalation of care including admission/observation considered Patient would have been admitted to the hospital had his work up had any findings where hospital admission was appropriate and his clinical presentation warranted hospital admission. Independent Interpretation I performed an independent interpretation of an: Plain X-Ray and CT Scan Interpretation: My interpretation is in agreement with the radiologist's impression of these imaging studies. Report Number: [id number]: Total DLP = 796.00 mGy-cm CLINICAL HISTORY: fall with posterior head strike on pavement CT head without contrast Comparison: CT/[facility] - CT HEAD/BRAIN WO CON - 06/18/20 21:17 EST Findings: No intra-axial mass, midline shift, hydrocephalus, or acute hemorrhage. No significant atrophy-like change or white matter disease. Small mucous retention cyst within the left maxillary sinus. The orbits are within normal limits. No skull fracture. IMPRESSION: No skull fracture or intracranial hemorrhage. This document has been electronically signed by: Rosio Wilkes MD on 04/27/2024 16:55:37 Dictated By: Rosio Wilkes MD Signed By: Electronically signed by Rosio Wilkes MD 04/27/24 1657 Report Number: [id number]: Total DLP = 510.00 mGy-cm CLINICAL HISTORY: falll, posterior HS on pavement, L neck pain CT cervical spine without contrast Comparison: None Findings: Vertebral alignment is within normal limits. No significant degenerative change. There is a mild chronic appearing compression fracture involving the superior endplate of T1. No acute cervical spine fracture. Visualized intracranial contents are unremarkable. No cervical fluid collections or masses. Lung apices are clear. IMPRESSION: No acute cervical spine fracture. This document has been electronically signed by: Rosio Wilkes MD on 04/27/2024 16:52:23 Dictated By: Rosio Wilkes MD Signed By: Electronically signed by Rosio Wilkes MD 04/27/24 2716 CLINICAL HISTORY: fall onto L shoulder, pain on abduction 3 view left shoulder Comparison: None Findings: No fractures or dislocations. No significant arthritic change. No erosions. No radiopaque foreign body. IMPRESSION: 1. No acute findings This document has been electronically signed by: Rosio Wilkes MD on 04/27/2024 13:51:03 Dictated By: Rosio Wilkes MD Signed By: Electronically signed by Rosio Wilkes MD 04/27/24 [id number] CLINICAL HISTORY: fall onto left upper arm 2 view left humerus Comparison: None Findings: No fractures or dislocations. No significant arthritic change. No radiopaque foreign body. IMPRESSION: 1. Normal left humerus This document has been electronically signed by: Rosio Wilkes MD on 04/27/2024 13:50:50 Dictated By: Rosio Wilkes MD Signed By: Electronically signed by Rosio Wilkes MD 04/27/24 3216 CLINICAL HISTORY: fall onto left elbow, pain w flexion 3 view left elbow Comparison: None Findings: Bones intact. No dislocations. No significant loss of joint space, osteophytes, or erosions. No joint effusion. No radiopaque foreign body. IMPRESSION: 1. No acute findings This document has been electronically signed by: Rosio Wilkes MD on 04/27/2024 13:48:50 Dictated By: Rosio Wilkes MD Signed By: Electronically signed by Rosio Wilkes MD 04/27/24 2438 Radiology Impression Discussion of test interpretation with radiology: I have reviewed the radiologist's reading. Discharge Plan Discharge Clinical Impression: Fall, Ulnar nerve injury Patient Disposition: Home, Self-Care Instructions: Fall Prevention (ED) Additional Instructions: Your CT of the head and c-spine were normal. Your imaging of the left upper extremity was normal. Given your physical exam findings - you likely temporarily injured your left ulnar nerve. Follow up with your primary care provider, an orthopedic provider, and given this was a work place injury - work connection. Return to the emergency department immediately if your symptoms worsen or if you develop any dizziness, shortness of breath, difficulty breathing, chest pain, blurry vision, loss of vision, nausea, vomiting, abdominal pain, fever, chills, back pain, or any other complaints. Prescriptions: No Action Antacid Anti-Gas (ca carb-sim) 1,000-60 mg tablet,chewable 1 tab PO QID PRN (Reason: indigestion) Qty: 20 0RF Referrals: [facility] [Provider Group] (Call to establish and follow up with an orthopedic provider regarding your left ulnar nerve injury.) [facility] [Provider Group] (Call to establish and follow up with work connection given this was a work place injury.) Niranjan Bal III, MD [Primary Care Provider] - Stand Alone Forms: Work/School Release Interventions: ED Discharge Assessment Last Done: 04/27/24 17:18 Discharge Date/Time: 04/27/24 17:19 Print Language: Armenian
[2024-04-27 15:34] VITALS: BP 132/86; PULSE 78; RESP 16; TEMP 37; O2SAT 100
[2024-04-27] MEDS: Ketorolac Tromethamine 15 MG/ML VIAL IM (17:16)
[2024-04-27 17:18] VITALS: BP 132/86; PULSE 78; RESP 18; TEMP 37; O2SAT 98
== END 2024-04-27 17:19 | disposition home or self-care (01) ==
PROVIDERS: Emergency Provider Emergency Medicine; PCP Internal Medicine
DX: S64.02XA Injury of ulnar nerve at wrist and hand level of left arm, initial encounter (principal); W00.0XXA Fall on same level due to ice and snow, initial encounter; R51.9 Headache, unspecified; M54.2 Cervicalgia; M25.512 Pain in left shoulder; Y93.9 Activity, unspecified; Y92.9 Unspecified place or not applicable; Y99.0 Civilian activity done for income or pay
CPT/HCPCS: 70450; 72125; 73030; 73060; 73080; 96372; 96374; 99283; 99284; J1885

== ENCOUNTER → 2024-04-27 12:00 | Outpatient (BNV) | payer OTHER, SELFPAY | PROVIDERS: PCP Internal Medicine; Visit Provider Radiology Diagnostic Radiology | DX: M54.2 Cervicalgia (principal); S09.90XA Unspecified injury of head, initial encounter; M25.512 Pain in left shoulder; M25.522 Pain in left elbow; W00.0XXA Fall on same level due to ice and snow, initial encounter | CPT/HCPCS: 70450; 72125; 73030; 73060; 73080 ==

== ENCOUNTER 2025-01-17 18:21 | Emergency (ER) | payer BC, SELFPAY ==
--- OUTSIDE RECORDS SUMMARY | 2025-01-13 14:00 | XMS_ITS | Encounter Summary ---
Author Organization [facility] Address [address] [place] [address] Care Team Providers Care Route Sales Driver Name Role Phone Niranjan Bal MD Primary Care Provider [phone] Reason for Visit * Reason Comments Knee Pain Right Encounter Details Date Type Department Care Team (Late st Contact Info) Description 01/13/2025 2:00 PM EDT Office Visit Adult Medicine [facility] [address] [place] [address] Jenny Contreras NETBACKUP ADMIN [address] [place] [address] Acute pain of right knee (Primary Dx); Pain of right thigh Social History Tobacco Use Types Packs/Day Years Used Date Smoking Tobacco: Never Smokeless Tobacco: Never Tobacco Cessation:Counseling Given: Not Answered Alcohol Use Standard Drinks/Week Comments Yes 0 (1 standard drink = 0.6 oz pur e alcohol) Housing Instability Answer Date Recorde d Are you worried that in the next 2 months you may not have stable housing? No 01/13/2025 Food Access & Nutrition Answer Date Rec orded Do you have access to a vari ety of food including fruits and vegetables? Yes 01/13/2025 Access to Healthcare Answer Date Record ed Within the last 3 months, ho w many times did you visit the emergency department for your medical care? 0 01/13/2025 Health Literacy Answer Date Recorded How often do you need to hav e someone help you when you read instructions, pamphlets, or other written material from your doctor or pharmacy? Never 01/13/2025 Caregiver: How often do you need to have someone help you when you read instructions, pamphlets, or other written material from your doctor or pharmacy? Not on file 01/13/2025 Financial Risk Answer Date Recorded How hard is it for you to pa y for the very basics like food, housing, medical care, and air conditioning / heating? Not very hard 01/13/2025 Transportation Answer Date Recorded Has the lack of transportati on kept you from meetings, work, or from getting things needed for daily living? No Has the lack of transportati on kept you from medical appointments or from getting medications? No 01/13/2025 Social Isolation Answer Date Recorded How often do you feel lonely or isolated from th ose around you? Never 01/13/2025 Food Risk Answer Date Recorded Within the past 12 months we worried whether our food would run out before we got money to buy more. Never true 01/13/2025 Within the past 12 months th e food we bought just didn't last and we didn't have money to get more. Never true 01/13/2025 Dependent Care Answer Date Recorded Do you need help finding or paying for care for your loved ones. For example, child and family services specialist or elderly care for an older adult? No 01/13/2025 Education Answer Date Recorded Do you think completing more education or training, like finishing a GED, going to college, or learning a trade, would be helpful for you? No 01/13/2025 Employment and Income Answer Date Recor ded During the last four weeks, have you been actively looking for work? No 01/13/2025 Living Situation Answer Date Recorded What is your living situation? 0 01/13/2025 Sex and Gender Information Value Date Recorded Sex Assigned at Not on file Legal Sex Male 3:17 AM EST Gender Identity Not on file Sexual Orientation Not on file documented as of this encounter Last Filed Vital Signs Vital Sign Reading Time Taken Comments Blood Pressure 130/60 01/13/2025 1:50 PM EDT Pulse 95 01/13/2025 1:50 PM EDT Temperature 36.7 C (98 F) 01/13/2025 1:50 PM EDT Respiratory Rate 16 01/13/2025 1:50 PM EDT Oxygen Saturation 97% 01/13/2025 1:50 PM EDT Inhaled Oxygen Concentration - - Weight 93.5 kg (206 lb 1.6 oz) 01/13/2025 1:50 P M EDT Height 175.3 cm (5' 9 ) 01/13/2025 1:50 PM EDT Body Mass Index 30.44 01/13/2025 1:50 PM EDT documented in this encounter Ordered Prescriptions Prescription Sig Dispense Quantity Refills Last Filled Start Date End Date ibuprofen (ADVIL,MOTRIN) 800 mg tablet Take 1 tablet (800 mg total) by mouth every 8 (eight) hours if needed for mild pain or moderate pain. 90 tablet 01/13/2025 documented in this encounter Progress Notes * Adeline Greenfield MA - 01/13/2025 2:00 PM EDT Depression Screening Will the patient answer the depression risk questions?: Yes Over the last 2 weeks, how often have you been bothered by little interest or pleasure in doing things?: Not at all Over the last 2 weeks, how often have you been bothered by feeling down, depressed, or hopeless?: Not at all Depression Risk: 0 Social Influencers of Health Who provided answers?: Self Within the past 12 months we worried whether our food would run out before we got money to buy more.: Never true Within the past 12 months the food we bought just didn't last and we didn't have money to get more.: Never true How hard is it for you to pay for the very basics like food, housing, medical care, and air conditioning / heating?: Not very hard Are you worried that in the next 2 months you may not have stable housing?: No Do you have access to a variety of food including fruits and vegetables?: Yes Within the last 3 months, how many times did you visit the emergency department for your medical care?: 0 Has the lack of transportation kept you from meetings, work, or from getting things needed for daily living?: No Has the lack of transportation kept you from medical appointments or from getting medications?: No How often do you feel lonely or isolated from those around you?: Never How often do you need to have someone help you when you read instructions, pamphlets, or other written material from your doctor or pharmacy?: Never * Jenny Contreras NP - 01/13/2025 2:00 PM EDT CHIEF COMPLAINT: Knee Pain (Right ) IDENTIFIER: David Khanna is a 24 y.o. old male. HPI: Patient presents today for evaluation of right thigh pain radiating to his knee and leg which causes numbness and tingling. He has had this discomfort for about a week now. It is not related to injury. He reports right thigh pain with swelling. He reports tenderness to touch. Patient states pain is dull and is constantly there. It radiates to his knee which has caused him to have gait issues. He states it feels uncomfortable to bear weight on his right lower extremity while ambulating. He reportsoccasional numbness and tingling in his foot. He reports noticing dull lower back pain as well. He denies bowel or bladder discomfort. ROS: GENERAL: No malaise or fever HEENT: No changes in hearing or vision RESPIRATORY: No cough, wheezing or shortness of breath CARDIOVASCULAR: No chest pain, leg swelling or palpitations MUSCULOSKELETAL: See HPI NEURO: No persistent headache, syncope, numbness All other systems reviewed and negative. PAST MEDICAL HISTORY: Patient Active Problem List Diagnosis Date Noted Class 1 obesity 01/13/2025 Nonalcoholic fatty liver 10/26/2022 Fatty liver 06/29/2022 Hyperlipidemia 04/03/2016 Sore throat 04/21/2015 Amblyopia 05/23/2007 Asthma 02/22/2006 Attention deficit disorder 02/22/2006 SOCIAL HISTORY: Social History Tobacco Use Smoking status: Never Smokeless tobacco: Never Substance Use Topics Alcohol use: Yes FAMILY HISTORY: Family Status Relation Name Status Mother Alive 1969 Malathi MGM (Not Specified) PGF (Not Specified) MGF (Not Specified) Father Alive 1973 Jaylon No partnership data on file Family History Problem Relation Name Age of Onset Allergies Mother Asthma Maternal Grandmother Other cancer Paternal Grandfather Other (Other: triple bipass age 40) Maternal Grandfather ACTIVE MEDICATIONS: No outpatient medications have been marked as taking for the 01/13/25 encounter (Office Visit) with Jenny Contreras NP. ALLERGIES: Patient has no known allergies. PHYSICAL EXAM: APPEARANCE: Alert and in no acute distress BACK: No pain to palpation with good flexion and extension. Spine midline, no deviations or step-offs EXTREMITIES: Extremities warm and well perfused without clubbing, cyanosis, or edema Right lower extremity: No obvious deformity, limited ROM due to pain. Reports tenderness on palpation of lateral aspect of right thigh and anterior knee. Unable to fully extend, internally rotate knee. NEURO: Awake, alert and oriented x 3 LABS/IMAGING: Reviewed X-ray of knee and femur ordered IMPRESSION: 1. Acute pain of right knee 2. Pain of right thigh PLAN: He presents today for evaluation of right knee and right thigh pain that has been going on for a week. On physical exam, patient has limited range of motion due to pain and reports tenderness. Will obtain x-ray imaging of the femur and right knee. Results will be reviewed and discussed with patient. In the meantime, I will prescribe ibuprofen 800 mg 3 times daily for pain management. Patient advised not to take medication on empty stomach as it may cause GI irritation. Patient verbalized understanding and is in agreement with plan. ADDITIONAL ORDERS: Orders Placed This Encounter Procedures XR Femur 2+ Views Right XR Knee 4+ Views Right None Jenny Contreras NP on 01/13/2025 at 5:32 PM EDT Today's documentation was made using voice recognition software.This note may contain grammatical errors secondary to this software documented in this encounter Plan of Treatment Not on file documented as of this encounter Results * XR Femur 2+ Views Right (01/13/2025 2:45 PM EDT) Anatomical Region Laterality Modality Lower Extremities, Femur Right Radiogr [facility] 01/14/2025 12:0 7 AM EDT Narrative 01/14/2025 12:07 AM EDT Right femur, 2 views. History pain. There is no visible fractures, dislocations or destructive lesions. Alignment is maintained. CONCLUSIONS: Unremarkable radiographs of the right femur. -------- FINAL REPORT -------- Dictated By: Opal Lipscomb Dictated Date: 01/14/2025 00:07 ET Assigned Physician: Opal Lipscomb Reviewed and Electronically Signed By: Opal Lipscomb Signed Date: 01/14/2025 00:07 ET Workstation ID: [id number] Transcribed By: Self Edit Transcribed Date: 01/14/2025 00:07 ET Procedure Note Opal Lipscomb MD - 01/14/2025 Right femur, 2 views. History pain. There is no visible fractures, dislocations or destructive lesions.Alignment is maintained. CONCLUSIONS: Unremarkable radiographs of the right femur. -------- FINAL REPORT -------- Dictated By: Opal Lipscomb Dictated Date: 01/14/2025 00:07 ET Assigned Physician: Opal Lipscomb Reviewed and Electronically Signed By: Opal Lipscomb Signed Date: 01/14/2025 00:07 ET Workstation ID: [id number] Transcribed By: Self Edit Transcribed Date: 01/14/2025 00:07 ET us Jenny Contreras NETBACKUP ADMIN IMG XR PROCEDURES Final Resul t * XR Knee 4+ Views Right (01/13/2025 2:45 PM EDT) Anatomical Region Laterality Modality Lower Extremities, Knee Right Radiogra [facility] 01/14/2025 12:0 6 AM EDT Narrative 01/14/2025 12:06 AM EDT Right knee, 4 views. History pain. There is no evidence of fractures, dislocations or joint effusion. Alignment is maintained. CONCLUSIONS: Unremarkable radiographs of the right knee. -------- FINAL REPORT -------- Dictated By: Opal Lipscomb Dictated Date: 01/14/2025 00:06 ET Assigned Physician: Opal Lipscomb Reviewed and Electronically Signed By: Opal Lipscomb Signed Date: 01/14/2025 00:06 ET Workstation ID: [id number] Transcribed By: Self Edit Transcribed Date: 01/14/2025 00:06 ET Procedure Note Opal Lipscomb MD - 01/14/2025 Right knee, 4 views. History pain. There is no evidence of fractures, dislocations or joint effusion.Alignment is maintained. CONCLUSIONS: Unremarkable radiographs of the right knee. -------- FINAL REPORT -------- Dictated By: Opal Lipscomb Dictated Date: 01/14/2025 00:06 ET Assigned Physician: Opal Lipscomb Reviewed and Electronically Signed By: Opal Lipscomb Signed Date: 01/14/2025 00:06 ET Workstation ID: [id number] Transcribed By: Self Edit Transcribed Date: 01/14/2025 00:06 ET us Jenny Contreras NETBACKUP ADMIN IMG XR PROCEDURES Final Resul t documented in this encounter Visit Diagnoses Diagnosis Acute pain of right knee- Primary Pain of right thigh Pain of right thigh Acute pain of right knee documented in this encounter Discontinued Medications Medication Sig Discontinue Reason Start Date End Da te cyclobenzaprine (FLEXERIL) 5 mg tablet Take 1 Tablet by mouth at bedtime as needed for Muscle spasms. May cause dizziness, sedation. Do not drive or operate heavy machinery on this medication. Patient Discharge 2024 01/13/2025 diclofenac (VOLTAREN) 1 % topical gel Apply 4 g topically 4 times daily. Patient Discharge 01/26/2024 01/13/2025 ibuprofen (ADVIL,MOTRIN) 800 mg tablet Take 1 Tablet by mouth every 8 hours as needed for Pain. Patient Discharge 2024 01/13/2025 varenicline tartrate (CHANTIX THEE) 0.5 mg (11)- 1 mg (42) tablet Use as directed on package instructions, try to quit smoking after 1 week. 06/07/2024 01/13/2025 documented as of this encounter Additional Health Concerns Assessment Noted Time PHQ-9 Depression Total Score: 0 01/14/20 1:52 PM EDT documented as of this encounter Care Teams Route Sales Driver Relationship Specialty Start Date End Date Niranjan Bal MD [address] [place] [phone] PCP - General Internal Medicine 06/06/24 documented as of this encounter
--- OUTSIDE RECORDS SUMMARY | 2025-01-13 14:28 | XMS_ITS | Encounter Summary ---
Author Organization [facility] [place] [address] Care Team Providers Care Assembly Machine Tender Name Role Phone Niranjan Bal MD Primary Care Provider [phone] Encounter Details Date Type Department Care Team (Latest Contact Info) Description 01/13/2025 2:28 PM EDT - 01/13/2025 11:59 PM EDT Hospital Encounter [facility] [address] [place] [phone] Pain of right thigh Discharge Disposition: Home or Self Care Social History Tobacco Use Types Packs/Day Years Used Date Smoking Tobacco: Never Smokeless Tobacco: Never Alcohol Use Standard Drinks/Week Comments Yes 0 [...] for your loved ones. For example, child care giver or elderly care for an older adult? [...] on file documented as of this encounter Medications at Time of Discharge ibuprofen (ADVIL,MOTRIN) 800 mg tablet Take 1 tablet (800 mg total) by mouth every 8 (eight) hours if needed for mild pain or moderate pain. 90 tablet 01/13/2025 documented as of this encounter Discharge Disposition Disposition Code Departure Means Destination Home or Self Care documented in this encounter Plan of Treatment Not on file documented as of this encounter Procedures Procedure Name Priority Date/Time Associated Diagnosis Comments XR KNEE 4+ VIEWS RIGHT Routine 01/13/2025 2:45 PM EDT Pain of right thigh documented in this encounter Results * XR Knee 4+ Views Right (01/13/2025 2:45 PM EDT) Anatomical Region Laterality Modality Lower Extremities, Knee Right Radiogra [facility] 01/14/2025 12:0 6 AM EDT Narrative [...] Signed Date: 01/14/2025 00:06 ET Workstation ID: [id number] Transcribed By: Self Edit Transcribed Date: 01/14/2025 [...] Signed Date: 01/14/2025 00:06 ET Workstation ID: [id number] Transcribed By: Self Edit Transcribed Date: 01/14/2025 00:06 ET us Jenny Contreras PARACHUTE SUPERVISOR IMG XR PROCEDURES Final Resul t documented in this encounter Visit Diagnoses Diagnosis Pain of right thigh documented in this encounter Additional Health Concerns Assessment Noted Time PHQ-9 Depression Total Score: 0 01/14/20 25 1:52 PM EDT documented as of this encounter Care Teams Assembly Machine Tender Relationship Specialty Start Date End Date Niranjan Bal MD [address] [place] [phone] PCP - General Internal Medicine 06/06/24 documented as of this encounter
--- OUTSIDE RECORDS SUMMARY | 2025-01-13 14:29 | XMS_ITS | Encounter Summary ---
Author Organization [facility] [place] [address] Care Team Providers Care Pasteurizer Name Role Phone Niranjan Bal MD Primary Care Provider [phone] Encounter Details Date Type Department Care Team (Latest Contact Info) Description 01/13/2025 2:29 PM EDT - 01/13/2025 11:59 PM EDT Hospital Encounter [facility] [address] [place] [phone] Acute pain of right knee Discharge Disposition: Home or Self Care Social [...] for your loved ones. For example, child development director or elderly care for an older adult? [...] Name Priority Date/Time Associated Diagnosis Comments XR FEMUR 2+ VIEWS RIGHT Routine 01/13/2025 2:45 PM EDT Acute pain of right knee documented in this encounter Results * XR Femur 2+ [...] Signed Date: 01/14/2025 00:07 ET Workstation ID: [id number] Transcribed By: Self Edit Transcribed Date: 01/14/2025 [...] Signed Date: 01/14/2025 00:07 ET Workstation ID: [id number] Transcribed By: Self Edit Transcribed Date: 01/14/2025 00:07 ET us Jenny Contreras [employer] INSTRUCTOR IMG XR PROCEDURES Final Resul t documented in this encounter Visit Diagnoses Diagnosis Acute pain of right knee documented in this encounter Additional Health Concerns Assessment Noted Time PHQ-9 Depression Total Score: 0 01/14/20 25 1:52 PM EDT documented as of this encounter Care Teams Pasteurizer Relationship Specialty Start Date End Date Niranjan Bal MD [address] [place] [phone] PCP - General Internal Medicine 06/06/24 documented as of this encounter
[2025-01-17] VITALS (13 sets, daily range): BP systolic 99–139; BP diastolic 61–85; PULSE 80–96; RESP 16–18; TEMP 36.5–38.8; O2SAT 97–98; BMI 30.4
--- NOTE | ~2025-01-17 | CT_ITS ---
CLINICAL HISTORY: rlq pain CT abdomen and pelvis with contrast Comparison: Ultrasound of the abdomen from 10/26/2022 Findings: Mild bibasilar atelectasis/pneumonitis. Splenomegaly with spleen measuring 16 cm. Steatotic change of the fat deposition redemonstrated in the liver. The gallbladder is unremarkable for CT. The adrenal glands are normal. Pancreas unremarkable. No hydronephrosis. No suspicious features of the small cystic lesions in the kidneys. Small mesenteric and periaortic lymph nodes are nonspecific and may be reactive. Fluid in multiple small bowel loops can be seen with enteritis. Small bowel loops measuring up to upper limits of normal in the hemiabdomen, without small-bowel obstruction. Fluid in the cecum can be seen with diarrhea type illnesses and mild colitis. Terminal ileum is mildly patulous. Imaged appendix is within normal limits (image 43 of series 6). Wall thickening of the large intestine is nonspecific and can be seen with colitis including descending colon and sigmoid colon. No free intraperitoneal air. The prostate gland measures 4 cm transverse. Mild wall thickening of the urinary bladder is nonspecific. No acute osseous abnormality. Multilevel Schmorl's nodes noted. Disc height loss noted of the L5-S1 with endplate hypertrophy. IMPRESSION: 1. Mild wall thickening of the large intestine is nonspecific and may reflect mild colitis. No small bowel obstruction. 2. No CT findings of acute appendicitis. 3. Splenomegaly This document has been electronically signed by: Jeff Wade MD on 01/17/2025 21:00:07
[2025-01-17 18:56] LABS: Hematocrit 39.2 % (42.0-52.0); Hemoglobin 14.0 g/dl (14.0-18.0); Mean Corpuscular HGB Conc 35.7 g/dl (31.0-36.0); Mean Corpuscular Hemoglobin 28.2 pg (27.0-33.0); Mean Corpuscular Volume 79.0 fL (80.0-98.0); NRBC Abs Auto 0.000 X10*3/uL (0.0-0.012); NRBC Pct Auto 0.0 /100WBC (0.0-0.2); Platelet Count 129 X10*3/uL (160-400); Red Blood Count 4.96 X10*6/uL (4.60-5.80); White Blood Count 5.3 X10*3/uL (4.8-10.8)
[2025-01-17 19:02] LABS: INTERNATIONAL NORM RATIO 1.3 (0.9-1.1); Prothrombin Time 14.6 SEC (10.9-12.4)
[2025-01-17 19:08] LABS: Alanine Aminotransferase 70 U/L (0-40); Albumin Level 4.6 g/dL (3.5-5.0); Alkaline Phosphatase 100 U/L (39-117); Anion Gap 13 (12-20); Aspartate Amino Transferase 68 U/L (5-37); Blood Urea Nitrogen 14 mg/dL (9-16); Calcium 9.0 mg/dL (8.4-10.2); Carbon Dioxide 24 mmol/L (22-29); Chloride 104 mmol/L (96-108); Creatinine Clr Calc Pharmacy 114.8; Estimated Glomerular Filt Rate > 60; Lipase 27 U/L (8-78); Potassium 3.8 mmol/L (3.3-5.1); Sodium 137 mmol/L (135-145); Total Protein 7.7 g/dL (6.5-8.0)
[2025-01-17 19:18] LABS: Troponin-I High Sensitivity < 2.7 ng/L (<3.5-35.0)
[2025-01-17] MEDS: SODIUM CHLORIDE 2803.2 ML IV (19:47)
[2025-01-17 19:59] LABS: Atypical Lymph Absolute Manual 0.8 x10*3/uL; Atypical Lymphs Percent Manual 16 % (0-6); Basophils Abs Manual 0.1 X10*3/uL (0.0-0.2); Basophils Percent Manual 1 % (0-2); Lymphocytes Absolute Manual 1.4 X10*3/uL (1.2-4.9); Lymphocytes Percent Manual 27 % (20-40); Monocytes Absolute Manual 0.2 X10*3/uL (0.1-1.2); Monocytes Percent Manual 3 % (2-11); Neutrophils Percent Manual 53 % (45-73)
[2025-01-17] MEDS: iohexoL 350 MG/ML 100 ML INFUS..BTL IV (20:00)
[2025-01-17 20:03] LABS: Band Neutrophils Percent 0 % (3-5); Large Platelet PRESENT; Neutrophils Absolute Manual 2.8 X10*3/uL (2.0-8.3); RBC Morphology NORMAL
--- OUTSIDE RECORDS SUMMARY | 2025-01-17 20:28 | XMS_ITS | Clinical Summary ---
Author Organization [facility] [address] [place] [address] [place] [phone] Phone Care Team Providers Care Fine Grader Name Role Phone Niranjan Bal MD Primary Care Provider [phone] Allergies No known active allergies Medications ibuprofen (ADVIL,MOTRIN) 800 mg tablet Take 1 tablet (800 mg total) by mouth every 8 (eight) hours if needed for mild pain or moderate pain. 90 tablet 5 Active cyclobenzaprine (FLEXERIL) 5 mg tablet Take 1 Tablet by mouth at bedtime as needed for Muscle spasms. May cause dizziness, sedation. Do not drive or operate heavy machinery on this medication. 4 01/14/20 Discontinu ed(Patient Discharge) diclofenac (VOLTAREN) 1 % topical gel Apply 4 g topically 4 times daily. 4 01/14/20 Discontinu ed(Patient Discharge) ibuprofen (ADVIL,MOTRIN) 800 mg tablet Take 1 Tablet by mouth every 8 hours as needed for Pain. 4 01/14/20 Discontinu ed(Patient Discharge) varenicline tartrate (CHANTIX THEE) 0.5 mg (11)- 1 mg (42) tablet Use as directed on package instructions, try to quit smoking after 1 week. 53 tablet 5 01/14/20 Discontinu ed( ) Active Problems Problem Noted Date Diagnosed Date Class 1 obesity 01/13/2025 Nonalcoholic fatty liver 10/26/2022 Fatty liver 06/29/2022 Hyperlipidemia 04/03/2016 Sore throat 04/21/2015 Overview (04/03/2024): 04/21/15 recurrent, refer to ENT 05/26/15 missed kanu Amblyopia 05/23/2007 Asthma 02/22/2006 Attention deficit disorder 02/22/2006 Encounters Date Type Department Care Team Description 01/13/2025 2:29 PM EDT - 01/13/2025 11:59 PM EDT Hospital Encounter [address] [phone] Acute pain of right knee Discharge Disposition: Home or Self Care 01/13/2025 2:28 PM EDT - 01/13/2025 11:59 PM EDT Hospital Encounter [address] [phone] Pain of right thigh Discharge Disposition: Home or Self Care 01/13/2025 2:00 PM EDT Office Visit Adult Medicine [address] [phone] Jenny Contreras, MARINE ENGINEERING TEACHER Acute pain of right knee (Primary Dx); Pain of right thigh from Last 3 Months Immunizations Name Administration Dates Next Due DTaP (Infanrix) 6wks to less than 7yo ,05/07/1999,1998,05/18,1998 CSnN-GOK-BNX (Pentacel) 2mo to less than 5yo 01/19/1999,1998,1998,03/19 HPV 9-valent (Gardisil) 9yo to less than 46yo 04/21/2015 HPV, Quadrivalent 03/19/2014,07/05/2013 Hepatitis B Pediatric (Enger ix B; Recombivax HB) to less than 20 yo 1998,1998,1998 IPV Inactivated polio (Ipol) 6wks and older 01/22/2002,01/19/1999,1998,03/19 Influenza Quadravalent, MDCK , 0.5ml, preservative free (Flucelvax) 6mo and older 03/23/2022,01/06/2021,03/07/2020,03/03 Influenza trivalent, 0.5mL, preservative free (Fluarix; FluLaval; Fluzone) ages 6mo and older (Afluria) 3 years and older 04/21/2015,03/19/2014,02/22/2012,06/02,02/09/2010,02/04/2009,02/22/2006 ,02/10/2005 MMR, measles mumps and rubel la Live (Priorix; M-M-R II) 12mo and older 01/22/2002,01/19/1999 Meningococcal MCV4P 04/21/2015,06/02/2011 PPD Test 01/18/2001 Pneumococcal Conjugate Vacci ne, 7 Valent 2000 Pneumococcal polysaccharide 23 valent (Pneumovax 23) 2yo and older 11/30/2018 Td Tetanus diptheria (Tdvax) 7yo and older 12/19/2009 Tdap Tetanus diptheria acell ular pertussis (Boostrix; Adacel) 7yo and older 06/20/2024,07/05/2012 Varicella live (Varivax) 12m o and older 02/09/2010,01/19/1999 Surgical History Surgery Date Site/Laterality Comments OTHER SURGICAL HISTORY PROCEDURE: DENIES PREVIOUS SURGERY Medical History Medical History Date Comments Contact dermatitis and other eczema, due to unspecified cause DX:Contact dermatitis and ot her eczema, due to unspecified cause Unspecified asthma, with exacerbation DX:Unspecified asthma, with exacerbation Amblyopia 05/23/2007 DX:Amblyopia Historical Medical DX DX:ADHD; C OMMENT: trial focalin, not helpful, on Concerta Wrist sprain 10/07 DX:Wrist sprain; COMMENT: right Clavicle fracture 2008 DX:Clavicle fr acture Finger fracture 08/08 DX:Finger fractu re; COMMENT: left pinkie, nondisplaced, Concussion 01/24/13 DX:Concussion Streptococcal sore throat 07/13 DX:Str eptococcal sore throat Family History Medical History Relation Name Comments Other: triple bipass age 40 Maternal Grandfather Asthma Maternal Grandmother Allergies Mother Other cancer Paternal Grandfather Relation Name Status Comments Father Alive 1974 Jaylon Maternal Grandfather Maternal Grandmother Mother Alive 1969 Malathi Paternal Grandfather Social History Tobacco Use Types Packs/Day Years [...] care for your loved ones. For example, attendant children's institution or elderly care for an older adult? [...] on file Sexual Orientation Not on file Obstetrics History Last Filed Vital Signs Vital Sign Reading [...] Mass Index 30.44 01/13/2025 1:50 PM EDT Plan of Treatment Health Maintenance Due Date Last Done Comments COVID-19 Vaccine (3 - season) 2024 09/04/2020, 08/14/2020 Influenza Vaccine (#1) 2024 2, 01/06/2021, 03/07/2020, Additional history exists Social Influencers of Health Screening 01/13/2026 01/13/2025 Cholesterol Screening (Lipid Panel) 09/13/2026 09/13/2021 DTaP,Tdap,and Td Vaccines (9 - Td or Tdap) 06/20/2034 06/20/2024, 07/05/2012, 12/19/2009, Additional history exists Pneumococcal Vaccine: Pediatrics (0 to 5 Years) and At-Risk Patients (6 to 49 Years) (3 of 3 - PCV20 or PCV21) 01/18/2048 11/30/2018, 2000 RSV Immunization Adult Patients (1 - 1-dose 75+ series) 2073 Hepatitis B Vaccines Completed 1998, 1998, 1998 HIB Vaccines Completed 01/19/1999, 06/29, 1998, Additional history exists IPV Vaccines Completed 01/22/2002, 12/31, 01/19/1999, Additional history exists MMR Vaccines Completed 01/22/2002, 01/19/1999 Varicella Vaccines Completed 02/09/2010, 01/19/1999 HPV Vaccines Completed 04/21/2015, 03/01, 07/05/2013 Meningococcal ACWY Vaccine Completed 04/21/2015, HIV Screening Completed 09/13/2021 Hepatitis C Screening Completed 10/14/2021 Depression Screening Completed 01/13/2025 Hepatitis A Vaccines Aged Out No long er eligible based on patient's age to complete this topic Meningococcal B Vaccine Aged Out No l onger eligible based on patient's age to complete this topic RSV Immunization Patients Under 20 months Aged Out No longer eligible based on patient's age to complete this topic Procedures Procedure Name Priority Date/Time Associated Diagnosis Comments XR FEMUR 2+ VIEWS RIGHT Routine 01/13/2025 2:45 PM EDT Acute pain of right knee XR KNEE 4+ VIEWS RIGHT Routine 01/13/2025 2:45 PM EDT Pain of right thigh HEPATITIS C SCREENING Routine 10/14/2021 HIV SCREENING Routine 09/13/2021 LIPID PANEL Routine 09/13/2021 from Last 3 Months or Most Recently Relevant to Health Maintenance Results * XR Femur 2+ Views Right [...] Signed Date: 01/14/2025 00:07 ET Workstation ID: [id number] Transcribed By: Self Edit Transcribed Date: 01/14/2025 [...] Signed Date: 01/14/2025 00:07 ET Workstation ID: [id number] Transcribed By: Self Edit Transcribed Date: 01/14/2025 00:07 ET us Jenny Contreras MARINE ENGINEERING TEACHER IMG XR PROCEDURES Final Resul t * XR Knee 4+ Views Right (01/13/2025 2:45 PM EDT) Anatomical Region Laterality Modality Lower Extremities, Knee Right [facility] 01/14/2025 12:0 6 AM EDT [...] Signed Date: 01/14/2025 00:06 ET Workstation ID: [id number] Transcribed By: Self Edit Transcribed Date: 01/14/2025 [...] Signed Date: 01/14/2025 00:06 ET Workstation ID: [id number] Transcribed By: Self Edit Transcribed Date: 01/14/2025 00:06 ET Result [facility] Jenny Contreras MARINE ENGINEERING TEACHER IMG XR PROCEDURES Final Resul t * Hepatitis C Screening (10/14/2021) [facility] Hepatitis C Screening Abstracted Historical Provider HEALTH MAINTENANCE Final Result * HIV Screening (09/13/2021) [facility] HIV Screening Abstracted Result [facility] Provider HEALTH MAINTENANCE Final Result * (ABNORMAL) Lipid panel (09/13/2021) [facility] LDL/HDL Ratio 6(A) 0 - 4 Triglycerides 270(A) 0 - 150 mg/dL Cholesterol 253(A) 0 - 200 mg/dL HDL 42 >=40 mg/dL LDL Cholesterol 157(A) 0 - 100 mg/dL Blood Venous blood specimen / Unknown Result [facility] Historical Provider LAB BLOOD ORDERABLES Krystle l Result from Last 3 Months or Most Recently Relevant to Health Maintenance Insurance [facility] Care Teams Fine Grader Relationship Specialty Start Date End Date Niranjan Bal MD [address] [place] [phone] PCP - General Internal Medicine 06/06/24
--- OUTSIDE RECORDS SUMMARY | 2025-01-17 20:28 | XMS_ITS ---
Author Name [facility] Organization Unknown Care Team Organization Name Specialty Phone Email Start Date End Da te [employer] Insurance 04/20/2024 [facility] JAVAD SARAVIA Primary Care 03/08/2022
--- NOTE | 2025-01-17 21:13 | ED.GENADULT ---
HPI - General Adult General Chief complaint: Abdominal Pain Stated complaint: sent from for poss appendicitis or lyme diease Time Seen by Provider: 01/17/25 19:22 Source: patient Limitations: no limitations History of Present Illness ED Provider: Kacy Sanchez PA-C HPI narrative: 25-year-old male with a history of obesity, presents with right lower abdominal pain x4 days. Pain worse with movement at times, it is focal to the right lower abdomen, unable to describe the nature of his discomfort. Associated diarrhea, fever, poor oral intake and nausea at times. Patient also complains of joint pain at multiple sites including both shoulders knees and hips. 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 He denies known tick exposure or bull's eye rash. Denies dysuria, hematuria, history of kidney stones. Denies recent travel, use of antibiotics or hospitalization. Denies testicular pain or swelling. Related Data Previous Rx's ?Medication ?Instructions ?Recorded calcium carbonate 1,000 1 tab PO QID PRN indigestion #20 10/26/22 mg-simethicone 60 mg chewable tabs tablet (Antacid Anti-Gas (calcium carb-simeth)) ciprofloxacin HCl 500 mg tablet 500 mg PO Q12H #14 tabs 01/17/25 ketorolac 10 mg tablet 10 mg PO Q6H PRN pain #20 tabs 01/17/25 metronidazole 500 mg tablet 500 mg PO Q8H 7 days #21 tabs 01/17/25 ondansetron 4 mg disintegrating 4 mg PO Q8H PRN nausea and 01/17/25 tablet vomiting #10 tabs Allergies Allergy/AdvReac Type Severity Reaction Status Date / Time No Known Allergies (No Known Allergy Verified 01/17/25 18:34 Allergies*) Review of Systems Review of Systems: Yes all other systems are reviewed and are negative Constitutional: Constitutional: Denies fatigue, Reports fever(s) and Reports malaise Cardiovascular: Cardiovascular: Denies chest pain and Denies dyspnea Respiratory: Respiratory: Denies cough and Denies dyspnea Gastrointestinal: Gastrointestinal: Reports abdominal pain, Reports diarrhea, Reports nausea and Denies vomiting Musculoskeletal: Musculoskeletal: Reports arthralgias and Denies joint swelling Integumentary/Breasts: Skin/Breast: Denies erythema and Denies rash Endocrine: Endocrine: Denies fatigue PMFSH Past Medical History Attestation statement: The following information was validated with the patient. Medical History No known health problems No known health problems Social History Social History Smoked in Last 30 Days: No Substance Use Type: Marijuana Advance Directives: No Advance Directives Information Provided: No Physical Exam ED Vital Signs: Vital Signs - 24 hr 01/17/25 18:32 01/17/25 19:53 01/17/25 20:07 Temperature 101.8 F H 99.1 F Pulse Rate 92 96 91 Respiratory Rate 18 18 Blood Pressure 139/63 135/85 135/85 Pulse Oximetry 98 97 Oxygen Delivery Method Room Air Room Air 01/17/25 20:08 01/17/25 20:10 01/17/25 20:23 Temperature 99.1 F Pulse Rate Respiratory Rate Blood Pressure 135/85 132/82 Pulse Oximetry Oxygen Delivery Method 01/17/25 20:38 01/17/25 20:54 01/17/25 21:17 Temperature 97.7 F Pulse Rate 82 Respiratory Rate 16 Blood Pressure 126/79 99/61 135/76 Pulse Oximetry 97 Oxygen Delivery Method Room Air 01/17/25 21:18 01/17/25 21:18 01/17/25 21:20 Temperature Pulse Rate 80 Respiratory Rate 16 Blood Pressure 136/67 135/76 136/67 Pulse Oximetry 97 Oxygen Delivery Method Room Air 01/17/25 21:23 01/17/25 22:58 01/18/25 00:08 Temperature 97.8 F Pulse Rate 80 Respiratory Rate 16 Blood Pressure 127/84 131/82 131/82 Pulse Oximetry 97 Oxygen Delivery Method Room Air BMI result Body Mass Index 30.4 Const Other: Alert, appears older than stated age Orientation/consciousness: patient oriented x3 Resp Effort & Inspection: normal respiratory effort Cardio Other: Normal peripheral perfusion GI Other: Abdomen is soft, obese, nondistended, mild tenderness right lower quadrant with minimal involuntary guarding Skin Other: Warm dry no rash Neuro General: patient oriented x3, gait normal, no focal motor deficits and CN's II-XI intact bilaterally Psych Other: Cooperative Medications Administered Discontinued Medications Generic Name Dose Route Start Last Admin Trade Name Freq PRN Reason Stop Dose Admin Ceftriaxone Sodium 2 gm 01/17/25 19:25 01/17/25 19:38 Ceftriaxone Sodium 2 Gm Vial IVPUSH 01/17/25 19:26 2 gm ONCE ONE Administration Sodium Chloride 2,803.2 mls @ 2,803.2 mls/hr 01/17/25 19:25 01/17/25 21:16 Ns 30 ml/kg infuse over 1 hr (2803.2 ml) 01/17/25 20:24 Infused IV Infusion .Q1H STA Acetaminophen 1,000 mg in 100 mls @ 400 mls/hr 01/17/25 19:25 01/17/25 19:52 Ofirmev IV 01/17/25 19:39 Infused ONCE ONE Infusion Metronidazole 500 mg in 100 mls @ 100 mls/hr 01/17/25 21:15 01/17/25 23:36 Flagyl IV 01/17/25 22:14 Infused ONCE ONE Infusion Iohexol 100 ml 01/17/25 20:00 01/17/25 20:00 Iohexol 350 Mg/Ml 100 Ml Infus..Btl IV 01/17/25 20:01 85 ml ONCE ONE Administration Morphine Sulfate 4 mg 01/17/25 19:30 01/17/25 19:36 Morphine Sulfate 4 Mg/Ml Cartridge IVPUSH 01/17/25 19:31 4 mg ONCE ONE Administration Protocol Morphine Sulfate 4 mg 01/17/25 20:49 01/17/25 21:04 Morphine Sulfate 4 Mg/Ml Cartridge IVPUSH 01/17/25 20:50 4 mg ONCE ONE Administration Protocol Ondansetron HCl 4 mg 01/17/25 19:30 01/17/25 19:36 Ondansetron Hcl 4 Mg/2 Ml Vial IVPUSH 01/17/25 19:31 4 mg ONCE ONE Administration Medical Decision Making Medical Decision Making MDM Narrative: 25-year-old male with a history of obesity, presents with right lower abdominal pain x4 days. Pain worse with movement at times, it is focal to the right lower abdomen, unable to describe the nature of his discomfort. Associated diarrhea, fever, poor oral intake and nausea at times. Patient also complains of joint pain at multiple sites including both shoulders knees and hips. 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 He denies known tick exposure or bull's eye rash. Denies dysuria, hematuria, history of kidney stones. Denies recent travel, use of antibiotics or hospitalization. Denies testicular pain or swelling. No chronic issues History: Per patient I have considered the following differential diagnoses: Tick-borne illness, viral syndrome, appendicitis, torsion, UTI, pyelonephritis, renal colic, viral gastroenteritis, sigmoid diverticulitis, C diff, traveler's diarrhea Plan: The patient does have focal right lower abdominal discomfort, he also has concurrent diarrhea, perhaps he has sigmoid diverticulitis, regardless we are obtaining a CT scan. He has no known risk factors for traveler's diarrhea or C diff. thought about viral gastroenteritis, which it could be, he was tested for influenza and COVID at urgent Care, not repeating. He has no related symptoms to suggest a UTI, no back pain or flank pain to suggest renal colic versus pyelonephritis. We will obtain a urine. The tick panel is in process. Doubtful to be torsion as he has no testicular pain or swelling. I have independently reviewed the following tests: Labs: No leukocytosis, not anemic, mild thrombocytopenia that has new, slight bump in LFTs AST and ALT, lactic 1.1, no additional electrolyte abnormality, tick panel pending...... The distribution of his LFTs with slight thrombocytopenia is suspicious for tick borne illness CT abdomen and pelvis:Findings: Mild bibasilar atelectasis/pneumonitis. Splenomegaly with spleen measuring 16 cm. Steatotic change of the fat deposition redemonstrated in the liver. The gallbladder is unremarkable for CT. The adrenal glands are normal. Pancreas unremarkable. No hydronephrosis. No suspicious features of the small cystic lesions in the kidneys. Small mesenteric and periaortic lymph nodes are nonspecific and may be reactive. Fluid in multiple small bowel loops can be seen with enteritis. Small bowel loops measuring up to upper limits of normal in the hemiabdomen, without small-bowel obstruction. Fluid in the cecum can be seen with diarrhea type illnesses and mild colitis. Terminal ileum is mildly patulous. Imaged appendix is within normal limits (image 43 of series 6). Wall thickening of the large intestine is nonspecific and can be seen with colitis including descending colon and sigmoid colon. No free intraperitoneal air. The prostate gland measures 4 cm transverse. Mild wall thickening of the urinary bladder is nonspecific. No acute osseous abnormality. Multilevel Schmorl's nodes noted. Disc height loss noted of the L5-S1 with endplate hypertrophy. IMPRESSION: 1. Mild wall thickening of the large intestine is nonspecific and may reflect mild colitis. No small bowel obstruction. 2. No CT findings of acute appendicitis. 3. Splenomegaly Differential Diagnosis Differential Diagnoses: The differential diagnosis associated with the presentation includes See medical decision-making Admission/Observation Consideration of admission/observation: Escalation of care including admission/observation considered Not applicable Lab Data MDM Lab Attestation statement: I reviewed the patient's lab results. 01/17/25 18:47 01/17/25 18:47 Labs: Lab Results 01/17/25 01/17/25 01/17/25 Range/Units 18:47 19:02 22:27 WBC 5.3 (4.8-10.8) X10*3/uL RBC 4.96 (4.60-5.80) X10*6/uL Hgb 14.0 (14.0-18.0) g/dl Hct 39.2 L (42.0-52.0) % MCV 79.0 L (80.0-98.0) fL MCH 28.2 (27.0-33.0) pg MCHC 35.7 (31.0-36.0) g/dl RDW 12.7 (11.0-16.0) % Plt Count 129 L D (160-400) X10*3/uL MPV 8.9 L (9.4-12.4) fL Immature Gran % (Auto) Cancelled Neut % (Auto) Cancelled Lymph % (Auto) Cancelled [place] % (Auto) Cancelled Eos % (Auto) Cancelled Baso % (Auto) Cancelled Lymph # (Auto) Cancelled [place] # (Auto) Cancelled Eos # (Auto) Cancelled Baso # (Auto) Cancelled Abs Immat Gran (auto) Cancelled Absolute Neuts (auto) Cancelled Absolute Nucleated RBC 0.000 (0.0-0.012) X10*3/uL Nucleated RBC % (auto) 0.0 (0.0-0.2) /100WBC Neutrophils % (Manual) 53 (45-73) % Band Neutrophils % 0 L (3-5) % Lymphocytes % (Manual) 27 (20-40) % Atypical Lymphs % (Man) 16 H (0-6) % Monocytes % (Manual) 3 (2-11) % Basophils % (Manual) 1 (0-2) % Abs Neuts (Manual) 2.8 (2.0-8.3) X10*3/uL Lymphocytes # (Manual) 1.4 (1.2-4.9) X10*3/uL Atyp Lymphs # (Manual) 0.8 x10*3/uL Monocytes # (Manual) 0.2 (0.1-1.2) X10*3/uL Basophils # (Manual) 0.1 (0.0-0.2) X10*3/uL Platelet Estimate NORMAL (NORMAL) Large Platelets PRESENT Plt Morphology Comment NOTED RBC Morphology NORMAL PT 14.6 H (10.9-12.4) SEC INR 1.3 H (0.9-1.1) Sodium 137 (135-145) mmol/L Potassium 3.8 (3.3-5.1) mmol/L Chloride 104 (96-108) mmol/L Carbon Dioxide 24 (22-29) mmol/L Anion Gap 13 (12-20) BUN 14 (9-16) mg/dL Creatinine 1.09 (0.5-1.4) mg/dL Estim Creat Clear Calc 114.8 Estimated GFR > 60 Random Glucose 108 (60-115) mg/dL Lactic Acid 1.1 (0.5-2.0) mmol/L Calcium 9.0 D (8.4-10.2) mg/dL Total Bilirubin 0.9 (0.0-1.0) mg/dL Direct Bilirubin 0.3 (0.0-0.5) mg/dL AST 68 H (5-37) U/L ALT 70 H (0-40) U/L Alkaline Phosphatase 100 (39-117) U/L Troponin I High Sens < 2.7 (<3.5-35.0) ng/L Total Protein 7.7 (6.5-8.0) g/dL Albumin 4.6 (3.5-5.0) g/dL Lipase 27 (8-78) U/L Urine Color Yellow Urine Appearance Clear Urine pH 5.5 (5.0-9.0) Ur Specific [place] >= 1.030 H (1.005-1.025) Urine Protein Negative (Neg-Trace) mg/dL Urine Glucose (UA) Negative (Negative) mg/dL Urine Ketones Negative (Negative) mg/dL Urine Blood Negative (Negative) Urine Nitrite Negative (Negative) Ur Leukocyte Esterase Negative (Negative) Radiology Impression Discussion of test interpretation with radiology: I have reviewed the radiologist's reading. Critical Care Time Critical Care Time Critical Care Time: Yes Total Critical Care Time: 35 Attestation: I Kacy Sanchez PA-C have personally performed 35 minutes critical care time not including lines and procedures; need for IV analgesia, antiemetic, IV antibiotics Discharge Plan Discharge Clinical Impression: Colitis Patient Disposition: Home, Self-Care Instructions: Colitis (ED) Additional Instructions: You were found to have colitis on the CT scan. See home care instructions. Take the ciprofloxacin as directed, take the Flagyl as directed, be sure to complete the course of each antibiotic. Use the ketorolac as needed for pain, take it with food. Uses Zofran as needed for nausea if you develop further symptoms. In regard to your tick panel, those results are pending. You will be contacted with the results if you require further treatment. Otherwise follow up with your primary care provider as needed. Prescriptions: New ciprofloxacin HCl 500 mg tablet 500 mg PO Q12H Qty: 14 0RF metronidazole 500 mg tablet 500 mg PO Q8H 7 Days Qty: 21 0RF ondansetron 4 mg tablet,disintegrating 4 mg PO Q8H PRN (Reason: nausea and vomiting) Qty: 10 0RF ketorolac 10 mg tablet 10 mg PO Q6H PRN (Reason: pain) Qty: 20 0RF Rx Instructions: maximum total duration of 5 days from all oral, intranasal, or parenteral formulations. Patient had an IV dose of Toradol here in the emergency room No Action Antacid Anti-Gas (ca carb-sim) 1,000-60 mg tablet,chewable 1 tab PO QID PRN (Reason: indigestion) Qty: 20 0RF Stand Alone Forms: Work/School Release Interventions: Admission Worksheet (ED) Last Done: 01/17/25 22:30 ED Discharge Assessment Last Done: 01/18/25 00:08 Discharge Date/Time: 01/18/25 00:11 Print Language: Slovenian
[2025-01-17] MEDS: metroNIDAZOLE/NS 500 MG/100 ML PIGGYBACK 100 MG IV (22:23)
[2025-01-17 22:35] LABS: Appearance Urine Clear; Glucose Urine UA Negative (Negative); PH 5.5 (5.0-9.0); Specific Gravity - Urine >= 1.030 (1.005-1.025)
--- NOTE | 2025-01-17 22:43 | HO.NURTONUR ---
Pt here w/ c/o lower abd pain assoc w/ fevers and diarrhea x 4 days. Was seen at Urgent Care and sent here for further eval for poss appendicitis. Pt was febrile in ED and was tx'd as sepsis. CT shows visualized wnl appendix and poss enteritis. Pt medicated for pain w/ MSO4 w/ good effect.
[2025-01-18 00:08] VITALS: BP 131/82; PULSE 80; RESP 16; TEMP 36.6; O2SAT 97
[2025-01-20 22:03] LABS: Lyme Abs Screen <0.90 index
[2025-01-21 17:44] LABS: A. Phagocytophilum Ab IgG <1:64 (<1:64); A. Phagocytophilum Ab IgM <1:20 (<1:20)
== END 2025-01-18 00:11 | disposition home or self-care (01) ==
PROVIDERS: Physician Assistant Medical; Emergency Provider Emergency Medicine Emergency Medical Services; PCP Internal Medicine
DX: K52.9 Noninfective gastroenteritis and colitis, unspecified (principal); R10.2 Pelvic and perineal pain; R11.0 Nausea; R10.31 Right lower quadrant pain; M79.10 Myalgia, unspecified site; R50.9 Fever, unspecified; Z79.899 Other long term (current) drug therapy
CPT/HCPCS: 36415; 74177; 80053; 81003; 82248; 83605; 83690; 84484; 85007; 85025; 85027; 85610; 86617; 86618; 86666; 86753; 87040; 96361; 96365; 96375; 96376; 99285; J0131; J0696; J1836; J2270; J2405; Q9967

== ENCOUNTER → 2025-01-17 18:49 | Outpatient (BNV) | payer BC, SELFPAY | PROVIDERS: PCP Internal Medicine; Visit Provider Radiology Neuroradiology | DX: R16.1 Splenomegaly, not elsewhere classified (principal) | CPT/HCPCS: 74177 ==

== ENCOUNTER 2025-01-21 16:05 | Inpatient (IN) | payer BC, SELFPAY ==
--- NOTE | 2025-01-21 | ECG_ITS ---
Test Reason : CHECK QTC Blood Pressure : */* mmHG Vent. Rate : 83 BPM Atrial Rate : 83 BPM P-R Int : 160 ms QRS Dur : 86 ms QT Int : 348 ms P-R-T Axes : 44 16 13 degrees QTcB Int : 408 ms Normal sinus rhythm Normal ECG When compared with ECG of 22-Apr-2022 18:40, No significant change was found Referred By: Wanda Houston Electronically Signed By: Sheng Cagle
--- NOTE | ~2025-01-21 | US_ITS ---
CLINICAL HISTORY: RUQ elevated liver enzymes --- Additional Notes or Special Instructions: look at GB, ducts, liver, pancreas US abdomen limited Comparison: CT/SR - CT ABDOMEN PELVIS W IV CON - 01/17/25 19:57 EDT US/SR - US ABDOMEN LIMITED - 10/26/22 20:22 EDT Findings: The visualized pancreas is normal. The liver is enlarged with increase of echogenicity. There is no intrahepatic bile duct dilatation. The common duct is 3.0 mm in diameter. The gallbladder is normal. There is no sonographic Phillips sign. The main portal vein is antegrade. No ascites. IMPRESSION: Gallbladder is unremarkable. Hepatomegaly and hepatic steatosis. This document has been electronically signed by: Karina Fowler MD on 01/21/2025 18:42:51
--- NOTE | ~2025-01-21 | CT_ITS ---
CLINICAL HISTORY: Diffuse abd pain, new bili elev transaminitis CT abdomen and pelvis with contrast Comparison: CT/SR - CT ABDOMEN PELVIS W IV CON - 01/17/25 19:57 EDT Findings: LIMITED CHEST: Lung bases are clear. LIVER: No focal liver lesion. BILIARY: No gallbladder wall thickening, radiopaque stone, or ductal dilatation. PANCREAS: No mass or ductal dilatation. SPLEEN: Spleen measures 14.4 cm. KIDNEYS: No hydronephrosis or radiopaque stone. ADRENALS: No nodule. VASCULAR: No aneurysm. RETROPERITONEUM: No lymphadenopathy or mass. BOWEL/MESENTERY: No mass or wall thickening. No evidence of obstruction. No free fluid or air. Oral contrast is visualized throughout the small bowel. Normal appendix. ABDOMINAL WALL: No mass or significant abnormality. URINARY BLADDER: No focal wall thickening. PELVIC NODES: No pelvic lymphadenopathy. PELVIC ORGANS: Normal for age. Trace pelvic free fluid. BONES: No acute fracture. OTHER: Negative. IMPRESSION: Circumferential thickening of the bladder, correlate with urinalysis for cystitis. Normal appendix. Mild splenomegaly. This document has been electronically signed by: Terri Rogel MD on 01/21/2025 22:34:40
[2025-01-21 16:10] VITALS: BP 127/64; PULSE 93; RESP 16; TEMP 36.8; O2SAT 95; BMI 30.6
--- NOTE | 2025-01-21 16:12 | ED.NAVMDI ---
HPI - Nausea/Vomiting/Diarrhea General Chief complaint: Abdominal Pain Stated complaint: Colitis, seen recently Time Seen by Provider: 01/21/25 18:14 Related Data Home Medications ?Medication ?Instructions ?Recorded ?Confirmed No Known Home Meds 01/22/25 01/22/25 Allergies Allergy/AdvReac Type Severity Reaction Status Date / Time No Known Allergies (No Known Allergy Verified 01/21/25 16:15 Allergies*) [facility] Past Medical History Medical History No known health problems No known health problems Social History Social History Household Members: Family Housing: Apartment Do you presently have visiting nurse or other home services: No Patient Tobacco Use Status: Never used Tobacco Substance Use Type: Marijuana Have you been hit, kicked, punched, or otherwise hurt by someone within the past year? If so, by whom?: No Do you feel safe in your current relationship?: No Current Relationship Is there a partner from a previous relationship who is making you feel unsafe now?: No Are you made to feel afraid or neglected: No Advance Directives: No Advance Directives Information Provided: Yes Do you have a plan to hurt others: No Plan Recently lost weight without trying: No Eating poorly because of decreased appetite: No Nutrition Risks: No Nutritional Risk service: No Physical Exam Vital Signs: Vital Signs: Last Vital Signs Temp 97.8 F 01/22/25 11:37 Pulse 82 01/22/25 11:37 Resp 18 01/22/25 11:37 BP 129/58 L 01/22/25 11:37 Pulse Ox 94 01/22/25 11:37 O2 Del Method Room Air 01/22/25 11:37 BMI result Body Mass Index 30.6 Course Course Course Narrative: This is a Rapid Medical Examination (RME) performed by Kiana Urbano PA-C in triage. Full HPI, ROS, assessment and treatment plan per primary provider in the Main ED. Hx: 25 yo M w/ recent diagnosis of colitis on 01/17/2025 started on Cipro/Metro here for eval of N/V and inability to tolerate PO intake or meds. admits to breaking out in hives last night. Plan: labs 1721 -- Liver enzymes elevated - RUQ US ordered. patient approached triage, states hives are worsening. no respiratory sx. - Benadryl ordered. awaiting bed. Time: 22:58 Date: 01/21/25 Provider: Jose Hawk MD I assumed care of this patient from my colleague, Dr. Pao Candelario 21:00 hours pending the patient's CT scan of the abdomen pelvis with IV contrast. 25-year-old male returns for abdominal pain and jaundiced. The patient was seen here 01/17/2025 for abdominal pain x4 days diagnosed with colitis treated with ciprofloxacin and metronidazole, returned with vomiting, fever and continuous abdominal pain. WBC was normal. Total bilirubin elevated 5.7 with elevated direct bilirubin of 4.5. AST, ALT and alk-phos elevated 148, 137 and 292. Lipase was normal. U tox positive for opiates and fentanyl. Urinalysis negative. [place] screen positive. Ultrasound revealed normal gallbladder, hepatic steatosis and hepatomegaly. CT abdomen pelvis IV contrast revealed no findings to explain his abnormal LFTs . GI was consulted and recommended admission for evaluation for possible ERCP. Patient was treated with morphine for pain and Zosyn 3.375 mg IV. I did discuss admission with the covering hospitalist, Dr. Lee. Patient will be admitted for further treatment. Medications Administered Generic Name Dose Route Start Last Admin Trade Name Freq PRN Reason Stop Dose Admin Diphenhydramine HCl 25 mg 01/21/25 23:40 01/22/25 09:03 Diphenhydramine Hcl 25 Mg Capsule PO 25 mg Q6H PRN Administration Hives Hydromorphone HCl 0.5 mg 01/21/25 23:30 01/22/25 13:12 Hydromorphone Hcl 1 Mg/Ml Syringe IVPUSH 0.5 mg Q4H PRN Administration Pain, Severe (Pain Scale 7-10) Protocol Lactated Ringer's 1,000 mls @ 100 mls/hr 01/21/25 23:30 01/22/25 09:06 Lr IVCONT 100 mls/hr .Q10H QUINCY Administration Piperacillin Sod/Tazobactam 50 mls @ 100 mls/hr 01/22/25 02:00 01/22/25 13:12 Sod 3.375 gm/ Sodium Chloride IV 100 mls/hr Q6H QUINCY Administration Sodium Chloride 3 ml 01/22/25 00:00 01/22/25 07:43 0.9 % Sodium Chloride Flush 3 Ml Syringe IVFLUSH 3 ml QSHIFT QUINCY Administration Discontinued Medications Generic Name Dose Route Start Last Admin Trade Name Yannick PRN Reason Stop Dose Admin Ceftriaxone Sodium 1 gm 01/21/25 23:30 01/21/25 23:40 Ceftriaxone Sodium 1 Gm Vial IVPUSH 1 gm 2200 QUINCY Administration Diatrizoate Meglum/Diatrizoate Sod 30 ml 01/21/25 21:43 01/21/25 21:43 Diatrizoate Meglumine, Sodium 30 Ml Solution PO 01/21/25 21:44 30 ml ONCE ONE Administration Diphenhydramine HCl 25 mg 01/21/25 17:20 01/21/25 17:24 Diphenhydramine Hcl 25 Mg Capsule PO 01/21/25 17:21 25 mg ONCE ONE Administration Diphenhydramine HCl 25 mg 01/21/25 19:47 01/21/25 19:57 Diphenhydramine Hcl 50 Mg/Ml Vial IVPUSH 01/21/25 19:48 25 mg ONCE ONE Administration Sodium Chloride 1,000 mls @ 999 mls/hr 01/21/25 18:30 01/21/25 20:28 Ns IV 01/21/25 19:30 Infused .Q1H1M QUINCY Infusion Piperacillin Sod/Tazobactam 50 mls @ 100 mls/hr 01/21/25 18:37 01/21/25 20:52 Sod 3.375 gm/ Sodium Chloride IV 01/21/25 19:06 Infused ONCE ONE Infusion Iohexol 85 ml 01/21/25 21:42 01/21/25 21:43 Iohexol 350 Mg/Ml 100 Ml Infus..Btl IV 01/21/25 21:43 85 ml ONCE ONE Administration Morphine Sulfate 4 mg 01/21/25 18:16 01/21/25 18:38 Morphine Sulfate 4 Mg/Ml Cartridge IVPUSH 01/21/25 18:17 4 mg ONCE ONE Administration Protocol Morphine Sulfate 4 mg 01/21/25 20:52 01/21/25 21:05 Morphine Sulfate 4 Mg/Ml Cartridge IVPUSH 01/21/25 20:53 4 mg ONCE ONE Administration Protocol Ondansetron HCl 4 mg 01/21/25 18:16 01/21/25 18:38 Ondansetron Hcl 4 Mg/2 Ml Vial IVPUSH 01/21/25 18:17 4 mg ONCE ONE Administration Medical Decision Making Medical Decision Making MDM Narrative: Medical Decision Makin-year-old male returns for abdominal pain now jaundiced. The patient was seen here recently for upper abdominal pain and found to have mild colitis been on Cipro Flagyl taking Toradol Tylenol. No EtOH drinking in over a year. Per history hepatitis immune. No recent travel or sick contacts. He has mild hives on exam but no evidence of anaphylaxis. He is mildly jaundiced and icteric but not encephalopathic or toxic looking. Hemodynamically stable in the ED. Tender in the right upper quadrant though biliary ultrasound is reassuring with normal caliber CBD no gallstones or signs of cholecystitis. Case although initially and by laboratory values suggests obstructive pattern however CBD normal. I discussed the case with GI who added a few labs at on including mono spot though the patient has no sore throat, and ceruloplasmin. Tick panel sent although it is unlikely given the isolated liver test abnormalities. Broad-spectrum antibiotic. MRCP was recommended and testing for hepatitis E. Later at about 20:50 the patient's Monospot returned positive. Although this may explain the patient's abnormal liver function tests given this significant abdominal pain rapid onset of the hyperbilirubinemia I do think the patient will still need MRCP nonemergent GI evaluation BILIRUBIN ELEVATION FELT TO BE SECONDARY TO MONONUCLEOSIS, IN CONJUNCTION WITH MY DISCUSSION WITH GASTROENTEROLOGY AND NOT END ORGAN DISFUNCTION 2/2 SEPSIS. Preliminary Favored Differential Diagnosis: Acute hepatitis, acute choledocholithiasis, acute cholangitis acute liver toxicity/Tylenol toxicity, hemochromatosis, acute sphincter of Oddi stenosis among additional considered etiologies Testing Interpreted Independently: ?See below for details Radiology or Lab testing Results Reviewed: ?See below for details Consults: ?See below for details Independent Historians/External Chart Reviews: ?See below for details Social Determinants of Health Impacting MDM/Planning: ?See below for details Consult Healthcare Provider Management of the patient was discussed with: Stone Operator (DANIELLA SMITH) Lab Data MDM Lab Attestation statement: I reviewed the patient's lab results. 01/22/25 04:50 01/22/25 04:50 Labs: Lab Results 01/21/25 01/21/25 01/21/25 Range/Units 16:20 19:05 20:14 WBC 5.9 (4.8-10.8) X10*3/uL RBC 4.73 (4.60-5.80) X10*6/uL Hgb 13.4 L (14.0-18.0) g/dl Hct 38.6 L (42.0-52.0) % MCV 81.6 (80.0-98.0) fL MCH 28.3 (27.0-33.0) pg MCHC 34.7 (31.0-36.0) g/dl RDW 13.1 (11.0-16.0) % Plt Count 135 L (160-400) X10*3/uL MPV 10.7 (9.4-12.4) fL Immature Gran % (Auto) Cancelled Neut % (Auto) Cancelled Lymph % (Auto) Cancelled [place] % (Auto) Cancelled Eos % (Auto) Cancelled Baso % (Auto) Cancelled Lymph # (Auto) Cancelled [place] # (Auto) Cancelled Eos # (Auto) Cancelled Baso # (Auto) Cancelled Abs Immat Gran (auto) Cancelled Absolute Neuts (auto) Cancelled Absolute Nucleated RBC 0.000 (0.0-0.012) X10*3/uL Nucleated RBC % (auto) 0.0 (0.0-0.2) /100WBC Neutrophils % (Manual) 38 L (45-73) % Band Neutrophils % 13 H (3-5) % Lymphocytes % (Manual) 21 (20-40) % Atypical Lymphs % (Man) 20 H (0-6) % Monocytes % (Manual) 5 (2-11) % Basophils % (Manual) 2 (0-2) % Metamyelocytes % 1 % Abs Neuts (Manual) 3.0 (2.0-8.3) X10*3/uL Lymphocytes # (Manual) 1.2 (1.2-4.9) X10*3/uL Atyp Lymphs # (Manual) 1.2 x10*3/uL Monocytes # (Manual) 0.3 (0.1-1.2) X10*3/uL Basophils # (Manual) 0.1 (0.0-0.2) X10*3/uL Metamyelocytes # 0.1 X10*3/uL Platelet Estimate NORMAL (NORMAL) Plt Morphology Comment NORM RBC Morphology NOTED Polychromasia 1+ (0-2) /OIF [place] Cells 3+ (>5) /OIF Smear Tech's Comments MANUAL DIFF Sodium 137 (135-145) mmol/L Potassium 3.7 (3.3-5.1) mmol/L Chloride 103 (96-108) mmol/L Carbon Dioxide 27 (22-29) mmol/L Anion Gap 11 L (12-20) BUN 15 (9-16) mg/dL Creatinine 1.03 (0.5-1.4) mg/dL Estim Creat Clear Calc 121.9 Estimated GFR > 60 Random Glucose 109 (60-115) mg/dL Calcium 9.0 (8.4-10.2) mg/dL Magnesium 1.8 (1.6-2.6) mg/dL Total Bilirubin 5.7 H (0.0-1.0) mg/dL Direct Bilirubin 4.5 H (0.0-0.5) mg/dL AST 148 H (5-37) U/L ALT 137 H (0-40) U/L Alkaline Phosphatase 292 H (39-117) U/L Total Creatine Kinase 104 (38-174) U/L Total Protein 7.0 (6.5-8.0) g/dL Albumin 3.8 (3.5-5.0) g/dL Lipase 57 (8-78) U/L Urine Opiates Screen (Not Detect) Ur Buprenorphine Scrn (Not Detect) ng/mL Ur Oxycodone Screen (Not Detect) ng/mL Urine Methadone Screen (Not Detect) ng/mL Urine Fentanyl Screen (Not Detect) Acetaminophen < 3 (<30) mcg/mL Ur Barbiturates Screen (Not Detect) Ur Phencyclidine Scrn (Not Detect) Ur Amphetamines Screen (Not Detect) U Benzodiazepines Scrn (Not Detect) Urine Cocaine Screen (Not Detect) U Marijuana (THC) Screen (Not Detect) Ethyl Alcohol < 10 mg/dL Hepatitis A IgM Ab Nonreactive (Nonreactive) Hep Bs Antigen Negative (Negative) Hep Bs Antibody NONREACTIVE (Nonreactive) Hep B Core Total Ab Nonreactive (Nonreactive) Hepatitis C Ab (EIA) Nonreactive (Nonreactive) Monoscreen Positive A (Negative) 01/21/25 Range/Units 20:46 WBC (4.8-10.8) X10*3/uL RBC (4.60-5.80) X10*6/uL Hgb (14.0-18.0) g/dl Hct (42.0-52.0) % MCV (80.0-98.0) fL MCH (27.0-33.0) pg MCHC (31.0-36.0) g/dl RDW (11.0-16.0) % Plt Count (160-400) X10*3/uL MPV (9.4-12.4) fL Immature Gran % (Auto) Neut % (Auto) Lymph % (Auto) [place] % (Auto) Eos % (Auto) Baso % (Auto) Lymph # (Auto) [place] # (Auto) Eos # (Auto) Baso # (Auto) Abs Immat Gran (auto) Absolute Neuts (auto) Absolute Nucleated RBC (0.0-0.012) X10*3/uL Nucleated RBC % (auto) (0.0-0.2) /100WBC Neutrophils % (Manual) (45-73) % Band Neutrophils % (3-5) % Lymphocytes % (Manual) (20-40) % Atypical Lymphs % (Man) (0-6) % Monocytes % (Manual) (2-11) % Basophils % (Manual) (0-2) % Metamyelocytes % % Abs Neuts (Manual) (2.0-8.3) X10*3/uL Lymphocytes # (Manual) (1.2-4.9) X10*3/uL Atyp Lymphs # (Manual) x10*3/uL Monocytes # (Manual) (0.1-1.2) X10*3/uL Basophils # (Manual) (0.0-0.2) X10*3/uL Metamyelocytes # X10*3/uL Platelet Estimate (NORMAL) Plt Morphology Comment RBC Morphology Polychromasia /OIF [place] Cells /OIF Smear Tech's Comments Sodium (135-145) mmol/L Potassium (3.3-5.1) mmol/L Chloride (96-108) mmol/L Carbon Dioxide (22-29) mmol/L Anion Gap (12-20) BUN (9-16) mg/dL Creatinine (0.5-1.4) mg/dL Estim Creat Clear Calc Estimated GFR Random Glucose (60-115) mg/dL Calcium (8.4-10.2) mg/dL Magnesium (1.6-2.6) mg/dL Total Bilirubin (0.0-1.0) mg/dL Direct Bilirubin (0.0-0.5) mg/dL AST (5-37) U/L ALT (0-40) U/L Alkaline Phosphatase (39-117) U/L Total Creatine Kinase (38-174) U/L Total Protein (6.5-8.0) g/dL Albumin (3.5-5.0) g/dL Lipase (8-78) U/L Urine Opiates Screen POSITIVE H (Not Detect) Ur Buprenorphine Scrn Not Detected (Not Detect) ng/mL Ur Oxycodone Screen Not Detected (Not Detect) ng/mL Urine Methadone Screen Not Detected (Not Detect) ng/mL Urine Fentanyl Screen POSITIVE H (Not Detect) Acetaminophen (<30) mcg/mL Ur Barbiturates Screen Not Detected (Not Detect) Ur Phencyclidine Scrn Not Detected (Not Detect) Ur Amphetamines Screen Not Detected (Not Detect) U Benzodiazepines Scrn Not Detected (Not Detect) Urine Cocaine Screen Not Detected (Not Detect) U Marijuana (THC) Screen Not Detected (Not Detect) Ethyl Alcohol mg/dL Hepatitis A IgM Ab (Nonreactive) Hep Bs Antigen (Negative) Hep Bs Antibody (Nonreactive) Hep B Core Total Ab (Nonreactive) Hepatitis C Ab (EIA) (Nonreactive) Monoscreen (Negative) Radiology Impression Discussion of test interpretation with radiology: I have reviewed the radiologist's reading. Radiologist Impression: Ultrasound without CBD dilation or stones. CT abdomen and pelvis with contrast Comparison: CT/SR - CT ABDOMEN PELVIS W IV CON - 01/17/25 19:57 EDT IMPRESSION: Circumferential thickening of the bladder, correlate with urinalysis for cystitis. Normal appendix. Mild splenomegaly. This document has been electronically signed by: Terri Rogel MD on 01/21/2025 22:34:40 Discharge Plan Discharge Clinical Impression: Abdominal pain, Jaundice Patient Disposition: Admitted As Inpatient Interventions: Admission Worksheet (ED) Last Done: 01/22/25 06:34 Discharge Date/Time: 01/22/25 11:26
[2025-01-21 16:57] LABS: Alanine Aminotransferase 137 U/L (0-40); Albumin Level 3.8 g/dL (3.5-5.0); Alkaline Phosphatase 292 U/L (39-117); Anion Gap 11 (12-20); Aspartate Amino Transferase 148 U/L (5-37); Blood Urea Nitrogen 15 mg/dL (9-16); Calcium 9.0 mg/dL (8.4-10.2); Carbon Dioxide 27 mmol/L (22-29); Chloride 103 mmol/L (96-108); Creatinine Clr Calc Pharmacy 121.9; Estimated Glomerular Filt Rate > 60; Lipase 57 U/L (8-78); Magnesium 1.8 mg/dL (1.6-2.6); Potassium 3.7 mmol/L (3.3-5.1); Sodium 137 mmol/L (135-145); Total Protein 7.0 g/dL (6.5-8.0)
[2025-01-21 17:00] LABS: Hematocrit 38.6 % (42.0-52.0); Hemoglobin 13.4 g/dl (14.0-18.0); Mean Corpuscular HGB Conc 34.7 g/dl (31.0-36.0); Mean Corpuscular Hemoglobin 28.3 pg (27.0-33.0); Mean Corpuscular Volume 81.6 fL (80.0-98.0); NRBC Abs Auto 0.000 X10*3/uL (0.0-0.012); NRBC Pct Auto 0.0 /100WBC (0.0-0.2); PLT CLUMP 1; Red Blood Count 4.73 X10*6/uL (4.60-5.80)
[2025-01-21 17:01] LABS: White Blood Count 5.9 X10*3/uL (4.8-10.8)
[2025-01-21 17:20] VITALS: RESP 18
[2025-01-21 17:29] LABS: Neutrophils Percent Manual 38 % (45-73)
[2025-01-21 17:31] LABS: Atypical Lymph Absolute Manual 1.2 x10*3/uL; Atypical Lymphs Percent Manual 20 % (0-6); Band Neutrophils Percent 13 % (3-5); Basophils Abs Manual 0.1 X10*3/uL (0.0-0.2); Basophils Percent Manual 2 % (0-2); Lymphocytes Absolute Manual 1.2 X10*3/uL (1.2-4.9); Lymphocytes Percent Manual 21 % (20-40); Metamyelocytes Absolute 0.1 X10*3/uL; Metamyelocytes Percent 1 %; Monocytes Absolute Manual 0.3 X10*3/uL (0.1-1.2); Monocytes Percent Manual 5 % (2-11); Neutrophils Absolute Manual 3.0 X10*3/uL (2.0-8.3)
[2025-01-21 17:32] LABS: Burr Cells 3+ (>5) /OIF; RBC Morphology NOTED
[2025-01-21 17:33] LABS: Polychromasia 1+ (0-2) /OIF
[2025-01-21 17:35] LABS: Platelet Count 135 X10*3/uL (160-400)
--- NOTE | 2025-01-21 18:44 | PC.NURSE ---
patient presents to ED with known colitis, was sent home on abx, patient is unable to tolerate po intake and unable to keep meds down. patient states he is starting to feel worse. patient is alert and oriented x4, patient is jaundice, noted to have rash on thighs and abd. patient states he has abd pain worse in RUQ with palpation. #20 placed in the LAC. medicated per JUN. patient family at bedside
--- OUTSIDE RECORDS SUMMARY | 2025-01-21 18:56 | XMS_ITS | Clinical Summary ---
Author Organization [facility] [address] [place] [address] [place] [phone] Phone Care Team Providers Care Automatic Steel Tie Adjuster Name Role Phone Niranjan Bal MD Primary Care Provider [phone] Allergies No known active allergies Medications ibuprofen [...] heavy machinery on this medication. 4 01/14/20 25 Discontinu ed(Patient Discharge) diclofenac (VOLTAREN) 1 % [...] - 01/13/2025 11:59 PM EDT Hospital Encounter [address] [phone] Acute pain of right knee Discharge Disposition: Home or Self Care 01/13/2025 2:28 PM EDT - 01/13/2025 11:59 PM EDT Hospital Encounter [address] [phone] Pain of right thigh Discharge Disposition: Home or Self Care 01/13/2025 2:00 PM EDT Office Visit Adult Medicine [address] [phone] Jenny Contreras, EQUIPMENT TESTER Acute pain of right knee (Primary Dx); Pain of right thigh from Last 3 Months Immunizations Name Administration Dates Next Due DTaP (Infanrix) 6wks to less than 7yo ,05/07/1999,1998,05/18,1998 [id number] (Pentacel) 2mo to less than 5yo 01/19/1999,1998,1998,03/19 [...] for your loved ones. For example, child nutrition director or elderly care for an older [...] 01/13/2025 1:50 PM EDT Plan of Treatment Upcoming Encounters Date Type Department Care Team (Late st Contact Info) Description 01/27/2025 10:00 AM EDT Office Visit Adult Medicine [facility] [address] [place] [phone] Jenny Contreras, EQUIPMENT TESTER [address] [place] [address] Health Maintenance Due Date Last Done Comments COVID-19 Vaccine ( season) 2024 09/04/2020, 08/14/2020 Influenza Vaccine (#1) [...] Signed Date: 01/14/2025 00:07 ET Workstation ID: [id number] Transcribed By: Self Edit Transcribed Date: 01/14/2025 [...] Signed Date: 01/14/2025 00:07 ET Workstation ID: [id number] Transcribed By: Self Edit Transcribed Date: 01/14/2025 00:07 ET us Jenny Contreras EQUIPMENT TESTER IMG XR PROCEDURES Final Resul t * XR Knee 4+ Views Right (01/13/2025 2:45 PM EDT) Anatomical Region Laterality Modality Lower Extremities, Knee Right [facility] 01/14/2025 12:0 6 AM EDT Narrative [...] Signed Date: 01/14/2025 00:06 ET Workstation ID: [id number] Transcribed By: Self Edit Transcribed Date: 01/14/2025 [...] Signed Date: 01/14/2025 00:06 ET Workstation ID: [id number] Transcribed By: Self Edit Transcribed Date: 01/14/2025 00:06 ET Result [facility] Jenny Contreras EQUIPMENT TESTER IMG XR PROCEDURES Final Resul t * Hepatitis C Screening (10/14/2021) [facility] Hepatitis C Screening Abstracted Result [facility] Historical Provider HEALTH MAINTENANCE Final Result * HIV Screening (09/13/2021) [facility] HIV Screening Abstracted Result [facility] Provider HEALTH MAINTENANCE Final Result * (ABNORMAL) Lipid panel (09/13/2021) [facility] LDL/HDL Ratio 6(A) 0 - 4 Triglycerides 270(A) 0 - 150 mg/dL Cholesterol 253(A) 0 - 200 mg/dL HDL 42 >=40 mg/dL LDL Cholesterol 157(A) 0 - 100 mg/dL Blood Venous blood specimen / Unknown us Historical Provider LAB BLOOD ORDERABLES Krystle l Result from Last 3 Months or Most Recently Relevant to Health Maintenance Insurance [facility] Care Teams Automatic Steel Tie Adjuster Relationship Specialty Start Date End Date Niranjan Bal MD [address] [place] [phone] PCP - General Internal Medicine 06/06/24
[2025-01-21 19:27] LABS: Acetaminophen LAB < 3 mcg/mL (<30)
--- NOTE | 2025-01-21 20:01 | PC.NURSE ---
Assumed care of pt, presents with increased abdominal pain in the RUQ, pt was seen in Monday and dx with colitis, was prescribed antibiotics, pt states that he has not been able to hold anything thing down, aaox4, nad, pt pending CT
[2025-01-21 20:16] VITALS: BP 142/91; PULSE 88; RESP 18; O2SAT 97
[2025-01-21 21:12] LABS: Cannabinoid Screen Urine Not Detected (Not Detect)
[2025-01-21] MEDS: iohexoL 350 MG/ML 100 ML INFUS..BTL 85 ML IV (21:43)
[2025-01-21 23:19] VITALS: BP 123/75; PULSE 80; RESP 16; TEMP 36.5; O2SAT 98
--- NOTE | 2025-01-21 23:36 | P.HPHOSP_ITS ---
History of Present Illness Date of Service: 01/21/25 Attending physician on admission: Azael Lee Chief Complaint: abd pain, fever, vomiting Patient is a 25-year-old male with a past medical history significant for recent colitis (diagnosed 01/17/2025 discharged home with Cipro and Flagyl), who presented to the ED due to inability to tolerate anything p.o. due to nausea, vomiting, jaundice and abdominal pain. Patient also reported fever and hives. Itchy palms and wrists and hives on his upper and lower extremities beginning last night around 11pm. His abdominal pain has not improved since starting the antibiotics. He denies any urinary symptoms including frequency, urgency or dysuria but does have tea colored urine. No diarrhea. Workup in the ED is significant for elevated LFTs and mono screen positive. Ultrasound of the gallbladder is normal. CT of the abdomen and pelvis showed circumferential thickening of the bladder and mild splenomegaly. ED provider spoke with GI who recommended admission and GI consult for possible ERCP. Review of Systems 2 Constitutional: Constitutional: Denies body ache(s), Reports chills, Denies fatigue, Reports fever(s) and Denies headache(s) Eyes: Eyes: Denies change in vision ENT: Denies headache(s), Denies nasal congestion and Denies sore throat Cardiovascular: Cardiovascular: Denies chest pain, Denies rapid heart rate, Denies leg edema, Denies lightheadedness and Denies dyspnea Respiratory: Respiratory: Denies chest congestion, Denies cough, Denies dyspnea and Denies wheezing Gastrointestinal: Gastrointestinal: Reports as per HPI Genitourinary: Genitourinary: Denies dysuria and Denies urinary urgency Musculoskeletal: Musculoskeletal: Denies myalgias Integumentary/Breasts: Skin/Breast: Reports jaundice Neurologic: Denies confusion and Denies headache(s) Psychiatric: Psychiatric: Denies confusion Endocrine: Endocrine: Denies fatigue Hematologic/Lymphatic: Hematologic/Lymphatic: Denies easy bleeding and Denies easy bruising Allergic/Immunologic: Allergic/Immunologic: Denies wheezing PMFSH Medical History No known health problems No known health problems Functional capacity: independent ambulation Social History Substance Use Type: Marijuana Advance Directives: No Advance Directives Information Provided: Yes Meds Allergies Allergy/AdvReac Type Severity Reaction Status Date / Time No Known Allergies (No Known Allergy Verified 01/21/25 16:15 Allergies*) Active Medications: Current Medications Acetaminophen (Acetaminophen 325 Mg Tablet) 650 mg PO Q6H PRN PRN Reason: Pain, Mild 1-3,fever,headache Calcium Carbonate (Calcium Carbonate 750 Mg Tab.Chew) 750 mg PO Q4H PRN PRN Reason: Heartburn Ceftriaxone Sodium (Ceftriaxone Sodium 1 Gm Vial) 1 gm IVPUSH 2200 [facility] Hydromorphone HCl (Hydromorphone Hcl 1 Mg/Ml Syringe) 0.5 mg IVPUSH Q4H PRN; Protocol PRN Reason: Pain, Severe (Pain Scale 7-10) Metronidazole (Flagyl) 500 mg in 100 mls @ 100 mls/hr IV Q8H [facility] Lactated Ringer's (Lr) 1,000 mls @ 100 mls/hr IVCONT .Q10H [facility] Magnesium Hydroxide (Milk Of Magnesia 30 Ml Oral.Susp) 30 ml PO DAILY PRN PRN Reason: Constipation Melatonin (Melatonin 3 Mg Tablet) 6 mg PO BEDTIME PRN PRN Reason: Insomnia Ondansetron HCl (Ondansetron Hcl 4 Mg/2 Ml Vial) 4 mg IVPUSH Q8H PRN PRN Reason: Nausea and Vomiting Oxycodone HCl (Oxycodone Hcl Immed Release 5 Mg Tablet) 5 mg PO Q6H PRN PRN Reason: Pain, Moderate(Pain Scale 4-6) Sodium Chloride (0.9 % Sodium Chloride Flush 3 Ml Syringe) 3 ml IVFLUSH QSHIFT [facility] Physical Exam 2 Vital Signs and Narrative: Vital Signs: Last Vital Signs Temp 97.7 F 01/21/25 23:19 Pulse 80 01/21/25 23:19 Resp 16 01/21/25 23:19 BP 123/75 01/21/25 23:19 Pulse Ox 98 01/21/25 23:19 O2 Del Method Room Air 01/21/25 23:19 BMI result Body Mass Index 30.6 General: AOx3, no acute distress Resp: CTA bilaterally CVS: S1, S2, RRR GI: +BS, NT, no distention Skin: Warm, dry. mild scleral icterus and pale/jaundice skin. no hives appreciated. Neuro: Cranial nerves II-XII grossly intact bilaterally. Motor grossly intact bilaterally Extremities: No pitting edema Psych: Appropriate affect Const: General: No confusion Orientation/consciousness: No confusion Neuro: General: No confusion Results Labs 01/21/25 16:20 01/21/25 16:20 Labs: Laboratory Results - last 24 hr 01/21/25 01/21/25 01/21/25 16:20 19:05 20:14 MCV 81.6 MCH 28.3 MCHC 34.7 RDW 13.1 Plt Count 135 L MPV 10.7 Immature Gran % (Auto) Cancelled Neut % (Auto) Cancelled Lymph % (Auto) Cancelled [place] % (Auto) Cancelled Eos % (Auto) Cancelled Baso % (Auto) Cancelled Lymph # (Auto) Cancelled [place] # (Auto) Cancelled Eos # (Auto) Cancelled Baso # (Auto) Cancelled Abs Immat Gran (auto) Cancelled Absolute Neuts (auto) Cancelled Absolute Nucleated RBC 0.000 Nucleated RBC % (auto) 0.0 Neutrophils % (Manual) 38 L Band Neutrophils % 13 H Lymphocytes % (Manual) 21 Atypical Lymphs % (Man) 20 H Monocytes % (Manual) 5 Basophils % (Manual) 2 Metamyelocytes % 1 Abs Neuts (Manual) 3.0 Lymphocytes # (Manual) 1.2 Atyp Lymphs # (Manual) 1.2 Monocytes # (Manual) 0.3 Basophils # (Manual) 0.1 Metamyelocytes # 0.1 Platelet Estimate NORMAL Plt Morphology Comment NORM RBC Morphology NOTED Polychromasia 1+ (0-2) Jean-[place] Cells 3+ (>5) Smear Tech's Comments MANUAL DIFF Anion Gap 11 L Estim Creat Clear Calc 121.9 Estimated GFR > 60 Random Glucose 109 Calcium 9.0 Magnesium 1.8 Total Bilirubin 5.7 H Direct Bilirubin 4.5 H AST 148 H ALT 137 H Alkaline Phosphatase 292 H Total Creatine Kinase 104 Total Protein 7.0 Albumin 3.8 Lipase 57 Urine Opiates Screen Ur Buprenorphine Scrn Ur Oxycodone Screen Urine Methadone Screen Urine Fentanyl Screen Acetaminophen < 3 Ur Barbiturates Screen Ur Phencyclidine Scrn Ur Amphetamines Screen U Benzodiazepines Scrn Urine Cocaine Screen U Marijuana (THC) Screen Ethyl Alcohol < 10 Monoscreen Positive A 01/21/25 20:46 MCV MCH MCHC RDW Plt Count MPV Immature Gran % (Auto) Neut % (Auto) Lymph % (Auto) [place] % (Auto) Eos % (Auto) Baso % (Auto) Lymph # (Auto) [place] # (Auto) Eos # (Auto) Baso # (Auto) Abs Immat Gran (auto) Absolute Neuts (auto) Absolute Nucleated RBC Nucleated RBC % (auto) Neutrophils % (Manual) Band Neutrophils % Lymphocytes % (Manual) Atypical Lymphs % (Man) Monocytes % (Manual) Basophils % (Manual) Metamyelocytes % Abs Neuts (Manual) Lymphocytes # (Manual) Atyp Lymphs # (Manual) Monocytes # (Manual) Basophils # (Manual) Metamyelocytes # Platelet Estimate Plt Morphology Comment RBC Morphology Polychromasia Jean-[place] Cells Smear Tech's Comments Anion Gap Estim Creat Clear Calc Estimated GFR Random Glucose Calcium Magnesium Total Bilirubin Direct Bilirubin AST ALT Alkaline Phosphatase Total Creatine Kinase Total Protein Albumin Lipase Urine Opiates Screen POSITIVE H Ur Buprenorphine Scrn Not Detected Ur Oxycodone Screen Not Detected Urine Methadone Screen Not Detected Urine Fentanyl Screen POSITIVE H Acetaminophen Ur Barbiturates Screen Not Detected Ur Phencyclidine Scrn Not Detected Ur Amphetamines Screen Not Detected U Benzodiazepines Scrn Not Detected Urine Cocaine Screen Not Detected U Marijuana (THC) Screen Not Detected Ethyl Alcohol Monoscreen Assessment and Plan (1) Jaundice: Status: Acute (2) Abdominal pain: Status: Acute (3) Elevated LFTs: Status: Acute (4) EBV infection: Status: Acute (5) Class 1 obesity: Status: Acute (6) Substance use disorder: Status: Acute Plan Patient is a 25-year-old male with a past medical history significant for recent colitis (diagnosed 01/17/2025 discharged home with Cipro and Flagyl, who presented to the ED due to inability to tolerate anything p.o. due to nausea, vomiting, jaundice and abdominal pain. Admit for jaundice, elevated LFTs and abd pain with mono, concern for acute cholangitis. plan for possible ERCP by GI jaundice, abd pain, elevated LFTs, mono + - hepatitis panel pending - GI consult ?ERCP - NPO pending GI eval - zosyn. avoid flagyl due to ?hives. - IVF class 1 obesity - weight loss encouraged substance use disorder, +opiates and fentanyl (pt denies) - addiction med consult full code VTE prophy: pneumoboots pending GI consult Pt with jaundice, abd pain, elevated LFTs, reuqiring admission for at least 2 midnights stay for GI evaluation and IV abx. Quality Stroke Does the patient have a stroke diagnosis?: No VTE Prior VTE?: No VTE Risk Level:: Medical - moderate - high VTE Device Contraindication: N/A - Device Ordered VTE Drug Contraindication: Treatment Not Indicated
[2025-01-22] VITALS (8 sets, daily range): BP systolic 124–133; BP diastolic 58–75; PULSE 78–96; RESP 16–20; TEMP 36.3–38.8; O2SAT 94–99
[2025-01-22] MEDS: Lactated Ringers 1,000 ML 100 ML IVCONT ×3 (00:13→19:08)
--- NOTE | 2025-01-22 03:19 | PC.NURSE ---
Report given to overflow RN
--- NOTE | 2025-01-22 04:51 | PC.NURSE ---
0330 Pt transferred from Main ED to Overflow Room 2. Pt alert oriented x4, ambulates to bathroom stand by assistance. Pt NPO and cooperative. Pt reports right upper abdominal pain sharp 7 out of 10 numeric pain score. IVF's infusing as ordered.. Pt having one episode of diarrhea. Skin is jaundice but no longer has a rash on abdomen or legs. GI consult and Addiction Consults are ordered and pending completion.
[2025-01-22 05:17] LABS: Alanine Aminotransferase 123 U/L (0-40); Albumin Level 3.3 g/dL (3.5-5.0); Alkaline Phosphatase 273 U/L (39-117); Anion Gap 14 (12-20); Aspartate Amino Transferase 147 U/L (5-37); Blood Urea Nitrogen 14 mg/dL (9-16); Calcium 8.4 mg/dL (8.4-10.2); Carbon Dioxide 23 mmol/L (22-29); Chloride 106 mmol/L (96-108); Creatinine Clr Calc Pharmacy 121.9; Estimated Glomerular Filt Rate > 60; Potassium 3.7 mmol/L (3.3-5.1); Sodium 139 mmol/L (135-145); Total Protein 6.0 g/dL (6.5-8.0)
[2025-01-22 05:20] LABS: Hematocrit 32.4 % (42.0-52.0); Hemoglobin 12.1 g/dl (14.0-18.0); Mean Corpuscular HGB Conc 37.3 g/dl (31.0-36.0); Mean Corpuscular Hemoglobin 32.2 pg (27.0-33.0); Mean Corpuscular Volume 86.2 fL (80.0-98.0); NRBC Abs Auto 0.000 X10*3/uL (0.0-0.012); NRBC Pct Auto 0.0 /100WBC (0.0-0.2); Platelet Count 129 X10*3/uL (160-400); Red Blood Count 3.76 X10*6/uL (4.60-5.80); White Blood Count 6.2 X10*3/uL (4.8-10.8)
[2025-01-22 05:27] LABS: Atypical Lymph Absolute Manual 1.2 x10*3/uL; Atypical Lymphs Percent Manual 19 % (0-6); Band Neutrophils Percent 11 % (3-5); Basophils Abs Manual 0.1 X10*3/uL (0.0-0.2); Basophils Percent Manual 1 % (0-2); Lymphocytes Absolute Manual 0.9 X10*3/uL (1.2-4.9); Lymphocytes Percent Manual 14 % (20-40); Monocytes Absolute Manual 0.5 X10*3/uL (0.1-1.2); Monocytes Percent Manual 8 % (2-11); Neutrophils Absolute Manual 3.6 X10*3/uL (2.0-8.3); Neutrophils Percent Manual 47 % (45-73)
[2025-01-22 05:28] LABS: Large Platelet PRESENT; RBC Morphology NORMAL
--- NOTE | 2025-01-22 06:58 | P.CNGI_ITS ---
History of Present Illness Data of Consult Service Date: 01/22/25 Primary Care Provider: Niranjan Bal III, MD HPI Reason for consult: abn lft 25-year-old male previously well who I am seeing for assessment of abn imaging. Patient presents with 1 week of malaise, poor PO intake, aches, fever headaches, nausea, bilious emesis, hives and diarrhea. He also notes sharp RUQ pain, 6/10 in severity possibly worse with food and withour any radiation or exacerbating factors.. He was tested for flu and covid which were negative. He came to the ED and had CT revealing colitis and was sent home with flagyl and nevaeh but symptoms have persisted so came back. denies sick contacts, taking xs tylenol, drugs or alcohol He had labs showing elevated LFT, and US with nml cbd and GB. CT with splenomegaly. ED physician called me to discuss and I recommended additional testing, susbsequent monopsot came back positive. Review of Systems 2 Review of Systems: Constitutional : No Weight loss, + Fever, No Chills ENT/Mouth : No sore throat, No Rhinorrhea Eyes: No Swelling, No Redness Cardiovascular : No Chest Pain, No SOB, No Edema Respiratory : No Cough, No Sputum, No Wheezing Gastrointestinal : see HPI Genitourinary : NO Dysuria, No Urinary Frequency, No Hematuria, No Urgency Musculoskeletal : no joint pain, + Myalgias, No Joint Swelling Skin : No Skin Lesions, No rash Neuro : No Weakness, No Numbness, No Dizziness, No Headache Psych : No Anxiety/Panic, No Depression Heme/Lymph: No Bruising, No Lymphadenopathy Endocrine : No Polyuria, No Polydipsia All other systems reviewed and are negative. [facility] Past Medical History Medical History No known health problems No known health problems Family History Pertinent family history: no fh of liver dz Social History Social History Household Members: Family Housing: Apartment Do you presently have visiting nurse or other home services: No Patient Tobacco Use Status: Never used Tobacco Substance Use Type: Marijuana Have you been hit, kicked, punched, or otherwise hurt by someone within the past year? If so, by whom?: No Do you feel safe in your current relationship?: No Current Relationship Is there a partner from a previous relationship who is making you feel unsafe now?: No Are you made to feel afraid or neglected: No Advance Directives: No Advance Directives Information Provided: Yes Do you have a plan to hurt others: No Plan Recently lost weight without trying: No Eating poorly because of decreased appetite: No Nutrition Risks: No Nutritional Risk service: No Meds Allergies Allergy/AdvReac Type Severity Reaction Status Date / Time No Known Allergies (No Known Allergy Verified 01/21/25 16:15 Allergies*) Active Medications: Current Medications Acetaminophen (Acetaminophen 325 Mg Tablet) 650 mg PO Q6H PRN PRN Reason: Pain, Mild 1-3,fever,headache Calcium Carbonate (Calcium Carbonate 750 Mg Tab.Chew) 750 mg PO Q4H PRN PRN Reason: Heartburn Diphenhydramine HCl (Diphenhydramine Hcl 25 Mg Capsule) 25 mg PO Q6H PRN PRN Reason: Hives Hydromorphone HCl (Hydromorphone Hcl 1 Mg/Ml Syringe) 0.5 mg IVPUSH Q4H PRN; Protocol PRN Reason: Pain, Severe (Pain Scale 7-10) Last Admin: 01/22/25 04:21 Dose: 0.5 mg Lactated Ringer's (Lr) 1,000 mls @ 100 mls/hr IVCONT .Q10H [facility] Last Admin: 01/22/25 00:13 Dose: 100 mls/hr Piperacillin Sod/Tazobactam (Sod 3.375 gm/ Sodium Chloride) 50 mls @ 100 mls/hr IV Q6H [facility] Last Infusion: 01/22/25 03:24 Dose: Infused Magnesium Hydroxide (Milk Of Magnesia 30 Ml Oral.Susp) 30 ml PO DAILY PRN PRN Reason: Constipation Melatonin (Melatonin 3 Mg Tablet) 6 mg PO BEDTIME PRN PRN Reason: Insomnia Ondansetron HCl (Ondansetron Hcl 4 Mg/2 Ml Vial) 4 mg IVPUSH Q8H PRN PRN Reason: Nausea and Vomiting Oxycodone HCl (Oxycodone Hcl Immed Release 5 Mg Tablet) 5 mg PO Q6H PRN PRN Reason: Pain, Moderate(Pain Scale 4-6) Sodium Chloride (0.9 % Sodium Chloride Flush 3 Ml Syringe) 3 ml IVFLUSH QSHIFT [facility] Last Admin: 01/22/25 01:21 Dose: Not Given Home Medications ?Medication ?Instructions ?Recorded ?Confirmed ?Last Taken ?Type No Known Home Meds 01/22/25 01/22/25 Un known History Physical Exam 2 Exam: Exam: EXAM: GENERAL: The patient is well developed and nontoxic. VITAL SIGNS:see workflow HEENT: +icteric sclerae, PERRLA, EOMI. Oropharynx clear. Moist mucous membranes. Conjunctivae appear well perfused. No thyroid mass. CHEST: Chest wall is nontender. HEART: Regular rate and rhythm without murmurs. LUNGS: Clear to auscultation bilaterally. ABDOMEN: Soft, positive bowel sounds, tender RUQ, no organomegaly.no flank tenderness SKIN: No rash, no excessive bruising, petechiae, or purpura. NEUROLOGIC: Cranial nerves II-XII intact without motor/sensory deficit. Psych: normal affect Vital Signs: Vital Signs: Last Vital Signs Temp 100.1 F 01/22/25 03:53 Pulse 80 01/22/25 03:53 Resp 20 01/22/25 04:21 BP 124/62 01/22/25 03:53 Pulse Ox 97 01/22/25 03:53 O2 Del Method Room Air 01/22/25 03:53 BMI result Body Mass Index 30.6 Results Labs 01/22/25 04:50 01/22/25 04:50 Labs: Short CBC 01/21/25 01/22/25 Range/Units 16:20 04:50 WBC 5.9 6.2 (4.8-10.8) X10*3/uL Hgb 13.4 L 12.1 L (14.0-18.0) g/dl Hct 38.6 L 32.4 L (42.0-52.0) % Plt Count 135 L 129 L (160-400) X10*3/uL BMP 01/21/25 01/22/25 16:20 04:50 Sodium 137 139 Potassium 3.7 3.7 Chloride 103 106 Carbon Dioxide 27 23 BUN 15 14 Creatinine 1.03 1.03 Calcium 9.0 8.4 D Cardiac Enzymes 01/21/25 Range/Units 16:20 Total Creatine Kinase 104 (38-174) U/L Liver Function 01/21/25 01/22/25 Range/Units 16:20 04:50 Total Bilirubin 5.7 H 6.2 H (0.0-1.0) mg/dL Direct Bilirubin 4.5 H (0.0-0.5) mg/dL AST 148 H 147 H (5-37) U/L ALT 137 H 123 H (0-40) U/L Alkaline Phosphatase 292 H 273 H (39-117) U/L Albumin 3.8 3.3 L (3.5-5.0) g/dL Assessment and Plan (1) Abdominal pain: Status: Acute (2) Elevated LFTs: Status: Acute Plan 1/ Viral prodromal illness followed by jaundice and elevated LFT, mildly reduced HGB, could be EBV with hemolysis, also splenomegaly on imaging. No confusion or features to support TTP or other acute liver failure related conditions. PLAN: 1/ check EBV serologies 2/ guerrero test and hemolytic labs 3/ cont to trend LFT and INR, if worsening then may need expansion of work up, Hep E and ceruloplasmin pending. 4/ supportive care as doing [facility] fluids, analgesia Procedures Date of Service Date of Service: 01/22/25
[2025-01-22] MEDS: 0.9 % Sodium Chloride Flush 3 ML SYRINGE IVFLUSH (07:43)
--- NOTE | 2025-01-22 07:47 | PC.NURSE ---
alert, nad, states pain is under control, reports sleeping well, medicated as ordered, npo status reinforced, has been swishing water and spitting, mouth swab with ice water given at pt request, c/o leg itchiness no hives or rash noted
--- NOTE | 2025-01-22 08:41 | HO.PM.IMPN ---
Subjective Subjective Date of Service: 01/22/25 Interval History: Elevated LFT Review of Systems jaundice /abd pain has mild abd soaness no nausea/vomiting Review of Systems: Yes all other systems are reviewed and are negative Physical Exam Exam: Exam: Appearance: Alert.? Oriented X3.? cvs: rrr, [id number]. res: clear to auscultation ,no rhonchii or wheezing abd: no rebound or guarding ,nt, bs present. ext pulses present , no cyanosis . neuro: axo3 , nonfocal. Vital Signs: Vital Signs: Last Vital Signs Temp 98.8 F 01/22/25 07:31 Pulse 78 01/22/25 07:31 Resp 18 01/22/25 07:31 BP 129/68 01/22/25 07:31 Pulse Ox 96 01/22/25 07:31 O2 Del Method Room Air 01/22/25 07:31 BMI result Body Mass Index 30.6 Objective Data Active Medications Acetaminophen (Acetaminophen 325 Mg Tablet) 650 mg PO Q6H PRN PRN Reason: Pain, Mild 1-3,fever,headache Calcium Carbonate (Calcium Carbonate 750 Mg Tab.Chew) 750 mg PO Q4H PRN PRN Reason: Heartburn Diphenhydramine HCl (Diphenhydramine Hcl 25 Mg Capsule) 25 mg PO Q6H PRN PRN Reason: Hives Hydromorphone HCl (Hydromorphone Hcl 1 Mg/Ml Syringe) 0.5 mg IVPUSH Q4H PRN; Protocol PRN Reason: Pain, Severe (Pain Scale 7-10) Last Admin: 01/22/25 04:21 Dose: 0.5 mg Documented By: AMADOR Lactated Ringer's (Lr) 1,000 mls @ 100 mls/hr IVCONT .Q10H [facility] Last Admin: 01/22/25 00:13 Dose: 100 mls/hr Documented By: JESUS-SHERIN Piperacillin Sod/Tazobactam (Sod 3.375 gm/ Sodium Chloride) 50 mls @ 100 mls/hr IV Q6H [facility] Last Infusion: 01/22/25 08:06 Dose: Infused Documented By: FELIX Magnesium Hydroxide (Milk Of Magnesia 30 Ml Oral.Susp) 30 ml PO DAILY PRN PRN Reason: Constipation Melatonin (Melatonin 3 Mg Tablet) 6 mg PO BEDTIME PRN PRN Reason: Insomnia Ondansetron HCl (Ondansetron Hcl 4 Mg/2 Ml Vial) 4 mg IVPUSH Q8H PRN PRN Reason: Nausea and Vomiting Oxycodone HCl (Oxycodone Hcl Immed Release 5 Mg Tablet) 5 mg PO Q6H PRN PRN Reason: Pain, Moderate(Pain Scale 4-6) Sodium Chloride (0.9 % Sodium Chloride Flush 3 Ml Syringe) 3 ml IVFLUSH QSHIFT [facility] Last Admin: 01/22/25 07:43 Dose: 3 ml Documented By: FELIX Labs 01/22/25 04:50 01/22/25 04:50 Labs: Laboratory Results - last 24 hr 01/21/25 01/21/25 01/21/25 16:20 19:05 20:14 MCV 81.6 MCH 28.3 MCHC 34.7 RDW 13.1 Plt Count 135 L MPV 10.7 Immature Gran % (Auto) Cancelled Neut % (Auto) Cancelled Lymph % (Auto) Cancelled [place] % (Auto) Cancelled Eos % (Auto) Cancelled Baso % (Auto) Cancelled Lymph # (Auto) Cancelled [place] # (Auto) Cancelled Eos # (Auto) Cancelled Baso # (Auto) Cancelled Abs Immat Gran (auto) Cancelled Absolute Neuts (auto) Cancelled Absolute Nucleated RBC 0.000 Nucleated RBC % (auto) 0.0 Neutrophils % (Manual) 38 L Band Neutrophils % 13 H Lymphocytes % (Manual) 21 Atypical Lymphs % (Man) 20 H Monocytes % (Manual) 5 Basophils % (Manual) 2 Metamyelocytes % 1 Abs Neuts (Manual) 3.0 Lymphocytes # (Manual) 1.2 Atyp Lymphs # (Manual) 1.2 Monocytes # (Manual) 0.3 Basophils # (Manual) 0.1 Metamyelocytes # 0.1 Platelet Estimate NORMAL Large Platelets Plt Morphology Comment NORM RBC Morphology NOTED Polychromasia 1+ (0-2) [place] Cells 3+ (>5) Smear Tech's Comments MANUAL DIFF Anion Gap 11 L Estim Creat Clear Calc 121.9 Estimated GFR > 60 Random Glucose 109 Calcium 9.0 Magnesium 1.8 Total Bilirubin 5.7 H Direct Bilirubin 4.5 H AST 148 H ALT 137 H Alkaline Phosphatase 292 H Total Creatine Kinase 104 Total Protein 7.0 Albumin 3.8 Lipase 57 Urine Opiates Screen Ur Buprenorphine Scrn Ur Oxycodone Screen Urine Methadone Screen Urine Fentanyl Screen Acetaminophen < 3 Ur Barbiturates Screen Ur Phencyclidine Scrn Ur Amphetamines Screen U Benzodiazepines Scrn Urine Cocaine Screen U Marijuana (THC) Screen Ethyl Alcohol < 10 Monoscreen Positive A 01/21/25 01/22/25 20:46 04:50 MCV 86.2 MCH 32.2 MCHC 37.3 H RDW 14.5 Plt Count 129 L MPV 10.3 Immature Gran % (Auto) Cancelled Neut % (Auto) Cancelled Lymph % (Auto) Cancelled [place] % (Auto) Cancelled Eos % (Auto) Cancelled Baso % (Auto) Cancelled Lymph # (Auto) Cancelled [place] # (Auto) Cancelled Eos # (Auto) Cancelled Baso # (Auto) Cancelled Abs Immat Gran (auto) Cancelled Absolute Neuts (auto) Cancelled Absolute Nucleated RBC 0.000 Nucleated RBC % (auto) 0.0 Neutrophils % (Manual) 47 Band Neutrophils % 11 H Lymphocytes % (Manual) 14 L Atypical Lymphs % (Man) 19 H Monocytes % (Manual) 8 Basophils % (Manual) 1 Metamyelocytes % Abs Neuts (Manual) 3.6 Lymphocytes # (Manual) 0.9 L Atyp Lymphs # (Manual) 1.2 Monocytes # (Manual) 0.5 Basophils # (Manual) 0.1 Metamyelocytes # Platelet Estimate SLIGHTLY DECREASED Large Platelets PRESENT Plt Morphology Comment NOTED RBC Morphology NORMAL Polychromasia [place] Cells Smear Tech's Comments Anion Gap 14 Estim Creat Clear Calc 121.9 Estimated GFR > 60 Random Glucose 92 Calcium 8.4 D Magnesium Total Bilirubin 6.2 H Direct Bilirubin AST 147 H ALT 123 H Alkaline Phosphatase 273 H Total Creatine Kinase Total Protein 6.0 L Albumin 3.3 L Lipase Urine Opiates Screen POSITIVE H Ur Buprenorphine Scrn Not Detected Ur Oxycodone Screen Not Detected Urine Methadone Screen Not Detected Urine Fentanyl Screen POSITIVE H Acetaminophen Ur Barbiturates Screen Not Detected Ur Phencyclidine Scrn Not Detected Ur Amphetamines Screen Not Detected U Benzodiazepines Scrn Not Detected Urine Cocaine Screen Not Detected U Marijuana (THC) Screen Not Detected Ethyl Alcohol Monoscreen Assessment and Plan (1) Jaundice: Status: Acute (2) Elevated LFTs: Status: Acute (3) Abdominal pain: Status: Acute Plan 25-year-old male with a past medical history significant for recent colitis (diagnosed 01/17/2025 discharged home with Cipro and Flagyl, who presented to the ED due to inability to tolerate anything p.o. due to nausea, vomiting, jaundice and abdominal pain. Admit for jaundice, elevated LFTs and abd pain with mono, concern for acute cholangitis. plan for possible ERCP by GI jaundice, abd pain, elevated LFTs, mono + lft's similar hepatitis panel a,b,c nonreactive ,Hepatitis E:IgG /IgM-pending monospot test positive clear liquid diet,zosyn. avoid flagyl due to ?hives. GI-eval pending class 1 obesity- weight loss encouraged substance use disorder, +opiates and fentanyl (pt denies) - addiction med consult full code VTE prophy: pneumoboots pending GI consult Pt with jaundice, abd pain, elevated LFTs, reuqiring for GI evaluation and IV abx.GI eval /workup pending Quality Stroke Does the patient have a stroke diagnosis?: No VTE Prior VTE?: No VTE Risk Level:: Medical - moderate - high VTE Device Contraindication: N/A - Device Ordered VTE Drug Contraindication: Treatment Not Indicated
[2025-01-22 08:46] LABS: HBS Num1 0.24 mIU/mL (0-7.99); HBc Num1 0.32 S/CO (0.00-0.79); Hepatitis A Antibody IgM 0.10 Index (0-0.79); ~HepC Num1 0.12 S/CO (0.00-0.79); ~Hepatitis A Antibody IgM Nonreactive (Nonreactive); ~Hepatitis B Surface Antibody NONREACTIVE (Nonreactive); ~Hepatitis C Antibody Nonreactive (Nonreactive)
--- NOTE | 2025-01-22 08:50 | PHA.MEDREC ---
Addendum entered by Jacey Man RPh 01/22/25 09:35: MED REC REVIEWED BY [facility] Per Lianne, patient does not know the dose of acetaminophen that he takes prn. Original Note: Pharmacy Consult ? Medication Reconciliation Pharmacy has completed the medication reconciliation. Patient states he only takes acetaminophen prn. Patient reported he stopped taking Cipeofloxacin 500 mg, Ketorolac 10 mg, Metronidazole 500 mg and zofran 4 mg last dose was yesterday.
--- NOTE | 2025-01-22 10:46 | HO.NURTONUR ---
Patient with a past medical history significant for recent colitis (diagnosed 01/17/2025 discharged home with Radha and Grace), who presented to the ED due to inability to tolerate anything p.o. due to nausea, vomiting, jaundice and abdominal pain. Patient also reported fever and hives. Itchy palms and wrists and hives on his upper and lower extremities beginning 01/20 around 11pm. His abdominal pain has not improved since starting the antibiotics. On admssion his lft's were elevated he was jaundiced and had hives (? from flagyl), he is fully alert, steady gait and has an iv 20 l fa. He has had good pain relief from dilaudid and has used prn benadryl for some skin itchiness. lr infusing. pt has been NPO since yesterday for ERCP. we have not heard when this will be
[2025-01-22 11:00] LABS: HBsAGNum1 0.28 S/CO (0.00-0.99); Hepatitis B Surface Antigen Negative (Negative)
--- NOTE | 2025-01-22 12:13 | MHC.CM.PN ---
pt lives with family is indepedent and working will not need services when dcd pt has a ride home
--- NOTE | 2025-01-22 14:41 | MHC.RECOVRN ---
TW attempted to meet with pt in [id number] following consult to Addiction Medicine due to positive tox screen Intention was to discuss substance use and offer support, education and resources. Pt was in room in no apparent distress, with visitor at bedside. TW to return later today for assessment/evaluation and is available as needed for questions or concerns
--- NOTE | 2025-01-22 16:10 | PC.NURSE ---
1600 pt complains of hives and Benadryl ordered and given to pt, will continue to monitor
--- NOTE | 2025-01-22 16:58 | MHC.RECOVRN ---
TW spoke to pt's primary RN who states pt is currently visiting with other family members and recommended returning in the morning. TW to return morning to offer support as needed.
[2025-01-22 17:14] LABS: Reticulocytes Absolute 0.024 X10*6/uL (0.026-0.095)
[2025-01-23 03:35] VITALS: BP 118/60; PULSE 81; RESP 18; TEMP 36.7; O2SAT 94
[2025-01-23 07:28] VITALS: BP 123/84; PULSE 85; RESP 18; TEMP 36.9; O2SAT 94
[2025-01-23 07:32] LABS: Alanine Aminotransferase 114 U/L (0-40); Albumin Level 3.0 g/dL (3.5-5.0); Alkaline Phosphatase 292 U/L (39-117); Anion Gap 12 (12-20); Aspartate Amino Transferase 139 U/L (5-37); Blood Urea Nitrogen 11 mg/dL (9-16); Calcium 8.2 mg/dL (8.4-10.2); Carbon Dioxide 26 mmol/L (22-29); Chloride 106 mmol/L (96-108); Creatinine Clr Calc Pharmacy 130.8; Estimated Glomerular Filt Rate > 60; Potassium 3.6 mmol/L (3.3-5.1); Sodium 140 mmol/L (135-145); Total Protein 5.8 g/dL (6.5-8.0)
[2025-01-23] MEDS: Lactated Ringers 1,000 ML 100 ML IVCONT ×2 (07:37→20:45)
[2025-01-23 07:44] LABS: Hematocrit 31.5 % (42.0-52.0); Hemoglobin 11.8 g/dl (14.0-18.0); Mean Corpuscular Hemoglobin 32.1 pg (27.0-33.0); Mean Corpuscular Volume 85.6 fL (80.0-98.0); NRBC Abs Auto 0.000 X10*3/uL (0.0-0.012); NRBC Pct Auto 0.0 /100WBC (0.0-0.2); PLT CLUMP 1; Red Blood Count 3.68 X10*6/uL (4.60-5.80)
[2025-01-23 07:45] LABS: Mean Corpuscular HGB Conc 37.5 g/dl (31.0-36.0)
[2025-01-23 07:58] LABS: White Blood Count 7.2 X10*3/uL (4.8-10.8)
[2025-01-23 08:19] LABS: Atypical Lymph Absolute Manual 1.2 x10*3/uL; Atypical Lymphs Percent Manual 17 % (0-6); Band Neutrophils Percent 6 % (3-5); Lymphocytes Absolute Manual 1.1 X10*3/uL (1.2-4.9); Lymphocytes Percent Manual 15 % (20-40); Metamyelocytes Absolute 0.1 X10*3/uL; Metamyelocytes Percent 1 %; Myelocytes Absolute 0.1 X10*/uL; Myelocytes Percent 1 %; Neutrophils Absolute Manual 4.0 X10*3/uL (2.0-8.3); Neutrophils Percent Manual 50 % (45-73); Promyelocytes Absolute 0.1 X10*3/uL; Promyelocytes Percent 1 %
[2025-01-23 08:20] LABS: Basophils Abs Manual 0.1 X10*3/uL (0.0-0.2); Basophils Percent Manual 1 % (0-2); Burr Cells 1+ (0-2) /OIF; Eosinophils Absolute Manual 0.1 X10*3/uL (0.0-0.4); Eosinophils Percent Manual 1 % (0-4); Monocytes Absolute Manual 0.5 X10*3/uL (0.1-1.2); Monocytes Percent Manual 7 % (2-11); Polychromasia 1+ (0-2) /OIF; RBC Morphology NOTED; Tear Drop Cells 1+ (0-2) /OIF; Toxic Vacuolation PRESENT
--- NOTE | 2025-01-23 09:49 | P.PNGI_ITS ---
Subjective Subjective Date of Service: 01/23/25 Interval History: eating today looks improved bili higher but LDH also high pain is minimal Critical Care Time (minutes): 0 Physical Exam 2 Exam: Exam: EXAM: GENERAL: The patient is well developed and nontoxic. VITAL SIGNS:see workflow HEENT: +icteric sclerae, PERRLA, EOMI. Oropharynx clear. Moist mucous membranes. Conjunctivae appear well perfused. No thyroid mass. CHEST: Chest wall is nontender. HEART: Regular rate and rhythm without murmurs. LUNGS: Clear to auscultation bilaterally. ABDOMEN: Soft, positive bowel sounds, nontender, no organomegaly.no flank tenderness SKIN: No rash, no excessive bruising, petechiae, or purpura. NEUROLOGIC: Cranial nerves II-XII intact without motor/sensory deficit. Psych: normal affect Vital Signs: Vital Signs: Last Vital Signs Temp 98.4 F 01/23/25 07:28 Pulse 85 01/23/25 07:28 Resp 18 01/23/25 07:28 BP 123/84 01/23/25 07:28 Pulse Ox 94 01/23/25 07:28 O2 Del Method Room Air 01/23/25 07:28 BMI result Body Mass Index 30.6 Objective Data Labs 01/23/25 06:31 01/23/25 06:31 Labs: Laboratory Results - last 24 hr 01/21/25 01/21/25 01/21/25 16:20 19:05 20:14 WBC RBC Hgb Hct MCV MCH MCHC RDW Immature Gran % (Auto) Neut % (Auto) Lymph % (Auto) [place] % (Auto) Eos % (Auto) Baso % (Auto) Lymph # (Auto) [place] # (Auto) Eos # (Auto) Baso # (Auto) Abs Immat Gran (auto) Absolute Neuts (auto) Absolute Nucleated RBC Nucleated RBC % (auto) Neutrophils % (Manual) Band Neutrophils % Lymphocytes % (Manual) Atypical Lymphs % (Man) Monocytes % (Manual) Eosinophils % (Manual) Basophils % (Manual) Metamyelocytes % Myelocytes % Promyelocytes % Abs Neuts (Manual) Lymphocytes # (Manual) Atyp Lymphs # (Manual) Monocytes # (Manual) Eosinophils # (Manual) Basophils # (Manual) Metamyelocytes # Myelocytes # Promyelocytes # Toxic Vacuolation Platelet Estimate Plt Morphology Comment RBC Morphology Polychromasia Tear Drop Cells Jean-Pierre Cells Rouleaux Smear Path Review SEE NOTE Absolute Retic Percent Retic Immature Retic Fraction Retic Hgb Equivalent Sodium Potassium Chloride Carbon Dioxide Anion Gap BUN Creatinine Estim Creat Clear Calc Estimated GFR Random Glucose Calcium Total Bilirubin AST ALT Alkaline Phosphatase Lactate Dehydrogenase Total Protein Albumin Ceruloplasmin 32 H Hepatitis A IgM Ab Nonreactive Hep Bs Antigen Negative Hep Bs Antibody NONREACTIVE Hep B Core Total Ab Nonreactive Hepatitis C Ab (EIA) Nonreactive 01/22/25 01/23/25 17:04 06:31 WBC 7.2 RBC 3.68 L Hgb 11.8 L Hct 31.5 L MCV 85.6 MCH 32.1 MCHC 37.5 H RDW 15.1 Immature Gran % (Auto) Cancelled Neut % (Auto) Cancelled Lymph % (Auto) Cancelled [place] % (Auto) Cancelled Eos % (Auto) Cancelled Baso % (Auto) Cancelled Lymph # (Auto) Cancelled [place] # (Auto) Cancelled Eos # (Auto) Cancelled Baso # (Auto) Cancelled Abs Immat Gran (auto) Cancelled Absolute Neuts (auto) Cancelled Absolute Nucleated RBC 0.000 Nucleated RBC % (auto) 0.0 Neutrophils % (Manual) 50 Band Neutrophils % 6 H Lymphocytes % (Manual) 15 L Atypical Lymphs % (Man) 17 H Monocytes % (Manual) 7 Eosinophils % (Manual) 1 Basophils % (Manual) 1 Metamyelocytes % 1 Myelocytes % 1 Promyelocytes % 1 Abs Neuts (Manual) 4.0 Lymphocytes # (Manual) 1.1 L Atyp Lymphs # (Manual) 1.2 Monocytes # (Manual) 0.5 Eosinophils # (Manual) 0.1 Basophils # (Manual) 0.1 Metamyelocytes # 0.1 Myelocytes # 0.1 Promyelocytes # 0.1 Toxic Vacuolation PRESENT Platelet Estimate NORMAL Plt Morphology Comment NORMAL RBC Morphology NOTED Polychromasia 1+ (0-2) Tear Drop Cells 1+ (0-2) Jean-Pierre Cells 1+ (0-2) Rouleaux PRESENT Smear Path Review Cancelled Absolute Retic 0.024 L Percent Retic 1.4 Immature Retic Fraction 15.8 H Retic Hgb Equivalent 27.7 L Sodium 140 Potassium 3.6 Chloride 106 Carbon Dioxide 26 Anion Gap 12 BUN 11 Creatinine 0.96 Estim Creat Clear Calc 130.8 Estimated GFR > 60 Random Glucose 108 Calcium 8.2 L Total Bilirubin 6.1 H AST 139 H ALT 114 H Alkaline Phosphatase 292 H Lactate Dehydrogenase 653 H Total Protein 5.8 L Albumin 3.0 L Ceruloplasmin Hepatitis A IgM Ab Hep Bs Antigen Hep Bs Antibody Hep B Core Total Ab Hepatitis C Ab (EIA) Microbiology Microbiology Results: Microbiology 01/21/25 19:17 Blood - Venous Blood Culture - Preliminary No growth after 24 hours. 01/21/25 19:05 Blood - Venous Blood Culture - Preliminary No growth after 24 hours. Procedures Date of Service Date of Service: 01/23/25 Progress Note: A&P Assessment and plan (1) Elevated LFTs: Status: Acute Plan 1/ Abn LFT, hemolytic anemia suspected 2/2 EBV, clinically improving - no evidence of TTP PLAN: 1/ Advance diet as tolerated 2/ If ongoing hemolysis then heme consult 3/ avoid heavy duties and physical contact sports for 2- 4 weeks due to risk of splenic injury Time Spent With Patient Time: Total time managing care of this patient today ____ minutes. Quality Stroke Does the patient have a stroke diagnosis?: No VTE Prior VTE?: No VTE Risk Level:: Medical - moderate - high VTE Device Contraindication: N/A - Device Ordered VTE Drug Contraindication: Treatment Not Indicated
--- NOTE | 2025-01-23 09:49 | MHC.RECOVRN ---
TW met with pt in [id number] after consult placed to Addiction Medicine d/t positive tox screen for fentanyl and opiates On approach pt is sitting in bed, watching Tv. He reports his pain has decreased and is tolerable and states he is he did not need pain medication last evening. He reports he is tolerating liquids well and is looking forward to finally eating. Regarding substance use, pt reports only consuming alcohol every 1-2 months, maybe a Twisted Tea or two . Pt denies use of other substances and states he is unsure why his toxicology report was positive. He also denies to use of prescription medications, illicit pills, or OTC medication. Pt was educated on the danger of pressed pills purchased from the street or online and he voiced his understanding but states he never uses them. Pt states the only thing he uses is chewing tobacco. Pt declines intervention, MOUD, or outpatient appt for treatment related to SID at this time. Pt was provided with TW?s contact information if questions or concerns arise which pt denies at this time
--- NOTE | 2025-01-23 11:15 | HO.PM.IMPN ---
Subjective Subjective Date of Service: 01/23/25 Interval History: appetite improving Physical Exam Exam: Exam: EXAM: GENERAL: The patient is well developed and nontoxic. VITAL SIGNS:see workflow HEENT: +icteric sclerae, PERRLA, EOMI. Oropharynx clear. Moist mucous membranes. Conjunctivae appear well perfused. No thyroid mass. CHEST: Chest wall is nontender. HEART: Regular rate and rhythm without murmurs. LUNGS: Clear to auscultation bilaterally. ABDOMEN: Soft, positive bowel sounds, nontender, no organomegaly.no flank tenderness SKIN: No rash, no excessive bruising, petechiae, or purpura. NEUROLOGIC: Cranial nerves II-XII intact without motor/sensory deficit. Psych: normal affect Vital Signs: Vital Signs: Last Vital Signs Temp 98.4 F 01/23/25 07:28 Pulse 85 01/23/25 07:28 Resp 18 01/23/25 07:28 BP 123/84 01/23/25 07:28 Pulse Ox 94 01/23/25 07:28 O2 Del Method Room Air 01/23/25 07:28 BMI result Body Mass Index 30.6 Objective Data Active Medications Acetaminophen (Acetaminophen 325 Mg Tablet) 650 mg PO Q6H PRN PRN Reason: Pain, Mild 1-3,fever,headache Last Admin: 01/23/25 08:48 Dose: 650 mg Documented By: DWIGHT Calcium Carbonate (Calcium Carbonate 750 Mg Tab.Chew) 750 mg PO Q4H PRN PRN Reason: Heartburn Diphenhydramine HCl (Diphenhydramine Hcl 25 Mg Capsule) 25 mg PO Q6H PRN PRN Reason: Hives Last Admin: 01/23/25 08:49 Dose: 25 mg Documented By: DWIGHT Hydromorphone HCl (Hydromorphone Hcl 1 Mg/Ml Syringe) 0.5 mg IVPUSH Q4H PRN; Protocol PRN Reason: Pain, Severe (Pain Scale 7-10) Last Admin: 01/23/25 01:41 Dose: 0.5 mg Documented By: SINTIA Lactated Ringer's (Lr) 1,000 mls @ 100 mls/hr IVCONT .Q10H [facility] Last Admin: 01/23/25 07:37 Dose: 100 mls/hr Documented By: ADAM Piperacillin Sod/Tazobactam (Sod 3.375 gm/ Sodium Chloride) 50 mls @ 100 mls/hr IV Q6H [facility] Last Infusion: 01/23/25 08:32 Dose: Infused Documented By: DWIGHT Magnesium Hydroxide (Milk Of Magnesia 30 Ml Oral.Susp) 30 ml PO DAILY PRN PRN Reason: Constipation Melatonin (Melatonin 3 Mg Tablet) 6 mg PO BEDTIME PRN PRN Reason: Insomnia Ondansetron HCl (Ondansetron Hcl 4 Mg/2 Ml Vial) 4 mg IVPUSH Q8H PRN PRN Reason: Nausea and Vomiting Oxycodone HCl (Oxycodone Hcl Immed Release 5 Mg Tablet) 5 mg PO Q6H PRN PRN Reason: Pain, Moderate(Pain Scale 4-6) Sodium Chloride (0.9 % Sodium Chloride Flush 3 Ml Syringe) 3 ml IVFLUSH QSHIFT [facility] Last Admin: 01/23/25 07:40 Dose: Not Given Documented By: ADAM Non-Admin Reason: IV Running Labs 01/23/25 06:31 01/23/25 06:31 Labs: Laboratory Results - last 24 hr 01/21/25 01/21/25 01/22/25 16:20 20:14 17:04 MCV MCH MCHC RDW Immature Gran % (Auto) Neut % (Auto) Lymph % (Auto) [place] % (Auto) Eos % (Auto) Baso % (Auto) Lymph # (Auto) [place] # (Auto) Eos # (Auto) Baso # (Auto) Abs Immat Gran (auto) Absolute Neuts (auto) Absolute Nucleated RBC Nucleated RBC % (auto) Neutrophils % (Manual) Band Neutrophils % Lymphocytes % (Manual) Atypical Lymphs % (Man) Monocytes % (Manual) Eosinophils % (Manual) Basophils % (Manual) Metamyelocytes % Myelocytes % Promyelocytes % Abs Neuts (Manual) Lymphocytes # (Manual) Atyp Lymphs # (Manual) Monocytes # (Manual) Eosinophils # (Manual) Basophils # (Manual) Metamyelocytes # Myelocytes # Promyelocytes # Toxic Vacuolation Platelet Estimate Plt Morphology Comment RBC Morphology Polychromasia Tear Drop Cells Jean-[place] Cells Rouleaux Smear Path Review SEE NOTE Cancelled Absolute Retic 0.024 L Percent Retic 1.4 Immature Retic Fraction 15.8 H Retic Hgb Equivalent 27.7 L Anion Gap Estim Creat Clear Calc Estimated GFR Random Glucose Calcium Total Bilirubin AST ALT Alkaline Phosphatase Lactate Dehydrogenase 653 H Total Protein Albumin Ceruloplasmin 32 H 01/23/25 06:31 MCV 85.6 MCH 32.1 MCHC 37.5 H RDW 15.1 Immature Gran % (Auto) Cancelled Neut % (Auto) Cancelled Lymph % (Auto) Cancelled [place] % (Auto) Cancelled Eos % (Auto) Cancelled Baso % (Auto) Cancelled Lymph # (Auto) Cancelled [place] # (Auto) Cancelled Eos # (Auto) Cancelled Baso # (Auto) Cancelled Abs Immat Gran (auto) Cancelled Absolute Neuts (auto) Cancelled Absolute Nucleated RBC 0.000 Nucleated RBC % (auto) 0.0 Neutrophils % (Manual) 50 Band Neutrophils % 6 H Lymphocytes % (Manual) 15 L Atypical Lymphs % (Man) 17 H Monocytes % (Manual) 7 Eosinophils % (Manual) 1 Basophils % (Manual) 1 Metamyelocytes % 1 Myelocytes % 1 Promyelocytes % 1 Abs Neuts (Manual) 4.0 Lymphocytes # (Manual) 1.1 L Atyp Lymphs # (Manual) 1.2 Monocytes # (Manual) 0.5 Eosinophils # (Manual) 0.1 Basophils # (Manual) 0.1 Metamyelocytes # 0.1 Myelocytes # 0.1 Promyelocytes # 0.1 Toxic Vacuolation PRESENT Platelet Estimate NORMAL Plt Morphology Comment NORMAL RBC Morphology NOTED Polychromasia 1+ (0-2) Tear Drop Cells 1+ (0-2) Jean-Pierre Cells 1+ (0-2) Rouleaux PRESENT Smear Path Review Absolute Retic Percent Retic Immature Retic Fraction Retic Hgb Equivalent Anion Gap 12 Estim Creat Clear Calc 130.8 Estimated GFR > 60 Random Glucose 108 Calcium 8.2 L Total Bilirubin 6.1 H AST 139 H ALT 114 H Alkaline Phosphatase 292 H Lactate Dehydrogenase Total Protein 5.8 L Albumin 3.0 L Ceruloplasmin Microbiology Microbiology Results: Microbiology 01/21/25 19:17 Blood Culture - Preliminary Blood - Venous No growth after 24 hours. 01/21/25 19:05 Blood Culture - Preliminary Blood - Venous No growth after 24 hours. Assessment and Plan (1) Jaundice: Status: Acute Plan 25M presented with abd pain, n/v, jaundice ebv acute hepatitis with hemolysis monitor lfts, advance diet full code reason for continued hospitalization:monitor lfts, advancing diet Quality Stroke Does the patient have a stroke diagnosis?: No VTE Prior VTE?: No VTE Risk Level:: Medical - moderate - high VTE Device Contraindication: N/A - Device Ordered VTE Drug Contraindication: Treatment Not Indicated
[2025-01-23 11:39] LABS: Platelet Count 135 X10*3/uL (160-400)
--- NOTE | 2025-01-23 12:00 | PM.EVENT ---
Event Note Date of Service: 01/23/25 Event Note: Addiction consult placed for patient with +UDS Patient seen by veterinary pharmacologist, denies any history of substance use. Please see note from 01/23 for additional details No indication for follow up. Time Spent With Patient Time: Total time managing care of this patient today ____ minutes.
[2025-01-23 15:45] VITALS: BP 133/72; PULSE 70; RESP 20; TEMP 35.9; O2SAT 99
[2025-01-23 19:48] VITALS: BP 135/78; PULSE 68; RESP 18; TEMP 36.2; O2SAT 95
[2025-01-24 04:00] VITALS: BP 137/78; PULSE 56; RESP 19; TEMP 36.3; O2SAT 96
[2025-01-24] MEDS: Lactated Ringers 1,000 ML 100 ML IVCONT (06:01)
[2025-01-24 06:39] LABS: INTERNATIONAL NORM RATIO 1.0 (0.9-1.1); Prothrombin Time 11.4 SEC (10.9-12.4)
[2025-01-24 06:51] LABS: Alanine Aminotransferase 124 U/L (0-40); Albumin Level 3.2 g/dL (3.5-5.0); Alkaline Phosphatase 373 U/L (39-117); Anion Gap 12 (12-20); Aspartate Amino Transferase 142 U/L (5-37); Blood Urea Nitrogen 10 mg/dL (9-16); Calcium 8.7 mg/dL (8.4-10.2); Carbon Dioxide 27 mmol/L (22-29); Chloride 107 mmol/L (96-108); Creatinine Clr Calc Pharmacy 184.6; Estimated Glomerular Filt Rate > 60; Magnesium 2.4 mg/dL (1.6-2.6); Potassium 3.9 mmol/L (3.3-5.1); Sodium 142 mmol/L (135-145); Total Protein 6.3 g/dL (6.5-8.0)
[2025-01-24 07:19] LABS: Hematocrit 31.7 % (42.0-52.0); Hemoglobin 11.7 g/dl (14.0-18.0); Mean Corpuscular Hemoglobin 31.8 pg (27.0-33.0); Mean Corpuscular Volume 86.1 fL (80.0-98.0); NRBC Abs Auto 0.000 X10*3/uL (0.0-0.012); NRBC Pct Auto 0.0 /100WBC (0.0-0.2); Platelet Count 162 X10*3/uL (160-400); Red Blood Count 3.68 X10*6/uL (4.60-5.80); White Blood Count 8.2 X10*3/uL (4.8-10.8)
[2025-01-24 07:21] LABS: Mean Corpuscular HGB Conc 36.9 g/dl (31.0-36.0)
[2025-01-24 08:00] VITALS: BP 135/89; PULSE 60; RESP 16; TEMP 36.4; O2SAT 97
--- NOTE | 2025-01-24 09:22 | PM.DS ---
DS: Providers Provider Date of Service: 01/24/25 Date of admission: 01/21/25 23:25 Date of discharge: 01/24/25 Primary care physician: Niranjan Bal III, MD Consults: 01/21/25 23:26 Consult to Gastroenterology Routine Consulting Provider: Ifeoma Cheatham Reason for consultation: jaundice, elevated LFTs Has provider been notified: Yes 01/22/25 00:32 Addiction Medicine Provider Routine Consulting Provider: Addiction Covering Reason for consultation: +fentanyl, opiates on utox Has provider been notified: No DS: Diagnosis Discharge Diagnosis (1) Jaundice: Status: Acute DS: Summary Hospital Course Hospital Course: from initial hpi: 25-year-old male with a past medical history significant for recent colitis (diagnosed 01/17/2025 discharged home with Cipro and Flagyl), who presented to the ED due to inability to tolerate anything p.o. due to nausea, vomiting, jaundice and abdominal pain. Patient also reported fever and hives. Itchy palms and wrists and hives on his upper and lower extremities beginning last night around 11pm. His abdominal pain has not improved since starting the antibiotics. He denies any urinary symptoms including frequency, urgency or dysuria but does have tea colored urine. No diarrhea. Workup in the ED is significant for elevated LFTs and mono screen positive. Ultrasound of the gallbladder is normal. CT of the abdomen and pelvis showed circumferential thickening of the bladder and mild splenomegaly. ED provider spoke with GI who recommended admission and GI consult for possible ERCP. hospital course: Patient was admitted for jaundice due to EBV with acute hepatitis and hemolysis. Symptoms improved and patient was able to tolerate solid diet. LFTs have plateaued with total bilirubin around 7 and INR normalized. Labs should be repeated in 3 days and should follow up with GI. Contact sports avoided for 4 weeks. Time Attestation Discharge Coordination Time (in mins): 34 Quality: Safe Use of Opioids Does Pt have an Active Cancer Diagnosis on the Problem List?: No Quality: Stroke Does the patient have a stroke diagnosis?: No Physical Exam Exam: Exam: EXAM: GENERAL: The patient is well developed and nontoxic. VITAL SIGNS:see workflow HEENT: +icteric sclerae, PERRLA, EOMI. Oropharynx clear. Moist mucous membranes. Conjunctivae appear well perfused. No thyroid mass. CHEST: Chest wall is nontender. HEART: Regular rate and rhythm without murmurs. LUNGS: Clear to auscultation bilaterally. ABDOMEN: Soft, positive bowel sounds, nontender, no organomegaly.no flank tenderness SKIN: No rash, no excessive bruising, petechiae, or purpura. NEUROLOGIC: Cranial nerves II-XII intact without motor/sensory deficit. Psych: normal affect Vital Signs: Vital Signs: Last Vital Signs Temp 97.6 F 01/24/25 08:00 Pulse 60 01/24/25 08:00 Resp 16 01/24/25 08:00 BP 135/89 01/24/25 08:00 Pulse Ox 97 01/24/25 08:00 O2 Del Method Room Air 01/24/25 08:00 BMI result Body Mass Index 30.6 DS: Data Data Completed and Pending Labs on day of discharge: Laboratory Results - last 24 hr 01/23/25 01/23/25 01/24/25 06:31 10:56 05:50 Plt Count 135 L MPV 10.6 PT 11.4 D INR 1.0 Sodium 142 Potassium 3.9 Chloride 107 Carbon Dioxide 27 Anion Gap 12 BUN 10 Creatinine 0.68 Estim Creat Clear Calc 184.6 Estimated GFR > 60 Random Glucose 135 H Calcium 8.7 D Magnesium 2.4 Total Bilirubin 7.4 H Direct Bilirubin 5.6 H AST 142 H ALT 124 H Alkaline Phosphatase 373 H Total Protein 6.3 L Albumin 3.2 L HERRERA, Polyspecific POSITIVE A Positive HERRERA Work-up INCONCLUSIVE A Preliminary micro results at discharge 01/21/25 19:17 Blood Culture - Preliminary Blood - Venous No growth after 48 hours. 01/21/25 19:05 Blood Culture - Preliminary Blood - Venous No growth after 48 hours. Discharge Plan Discharge Anticipated Discharge Date/Time: 01/24/25 09:19 Patient Disposition: Home, Self-Care Discharge Diagnosis: ebv hepatitis Referrals: Niranjan Bal III, MD [Primary Care Provider, Medical] - 1 Week Ifeoma Cheatham MD [Physician, Gastroenterology] - 1 Week Discharge Orders: Discharge Order (Routine); Ordered 01/24/25 Ordered By: Angel Acosta Diet: Advance to usual diet Activity on Discharge: No Contact sports Stand Alone Forms: Patient Portal Discharge page Print Language: Colombian Other Ambulatory Orders: Comprehensive Met. Panel (Routine) Timeframe: 3 Days Facility: [facility] - Location: Laboratory Ordered By: Angel Acosta Lactate Dehydrogenase (Routine) Timeframe: 3 Days Facility: [facility] - Location: Laboratory Ordered By: Angel Acosta Prothrombin Time INR (Routine) Timeframe: 3 Days Facility: [facility] - Location: Laboratory Ordered By: Angle Acosta Care Plan Goals: recovery Health Concerns: ebv Plan of Treatment: repeat labs on monday, follow up with GI avoid exertional activities for 4 weeks Assessment: see above
[2025-01-24 09:29] LABS: Atypical Lymph Absolute Manual 1.6 x10*3/uL; Band Neutrophils Percent 3 % (3-5); Lymphocytes Absolute Manual 3.0 X10*3/uL (1.2-4.9); Lymphocytes Percent Manual 37 % (20-40); Metamyelocytes Absolute 0.1 X10*3/uL; Metamyelocytes Percent 1 %; Monocytes Absolute Manual 1.0 X10*3/uL (0.1-1.2); Monocytes Percent Manual 12 % (2-11); Neutrophils Absolute Manual 2.5 X10*3/uL (2.0-8.3); Neutrophils Percent Manual 27 % (45-73)
[2025-01-24 09:30] LABS: Atypical Lymphs Percent Manual 20 % (0-6)
[2025-01-24 09:31] LABS: RBC Morphology NOTED
--- NOTE | 2025-01-24 09:31 | MHC.CM.PN ---
Patient medically cleared for dc home self care. Friend to transport. RN aware.
[2025-01-24 09:32] LABS: Burr Cells 1+ (0-2) /OIF; Polychromasia 1+ (0-2) /OIF; Tear Drop Cells 1+ (0-2) /OIF
[2025-01-24 09:35] LABS: Smudge Cells PRESENT
[2025-01-24 09:43] VITALS: BP 138/88; PULSE 66; RESP 16; TEMP 36.2; O2SAT 95
[2025-01-25 20:58] LABS: EBV DNA PCR Detected (Not Detected)
[2025-01-31 18:34] LABS: Hepatitis E Virus HEV IgG NOT DETECTED; Hepatitis E Virus HEV IgM NOT DETECTED
== END 2025-01-24 10:10 | disposition home or self-care (01) | DRG 723 ==
LOC: HO.ED 23:09 → HO.EDOVER 23:29 → HO.S3 01-22 10:14
PROVIDERS: Internal Medicine; Internal Medicine Gastroenterology; Physician Assistant Medical; Admitting Provider Physician Assistant; Emergency Provider Emergency Medicine; PCP Internal Medicine; Visit Provider Internal Medicine
DX: B27.00 Gammaherpesviral mononucleosis without complication (principal); D59.4 Other nonautoimmune hemolytic anemias; B17.8 Other specified acute viral hepatitis; E66.811 Obesity, class 1; F19.90 Other psychoactive substance use, unspecified, uncomplicated; Z71.3 Dietary counseling and surveillance; Z68.30 Body mass index [BMI] 30.0-30.9, adult
CPT/HCPCS: 36415; 74177; 76705; 80053; 80143; 80307; 82248; 82390; 82550; 83615; 83690; 83735; 85007; 85025; 85027; 85045; 85610; 86308; 86704; 86706; 86709; 86790; 86803; 86880; 87040; 87340; 87798; 93005; 99285; J0696; J1171; J1200; J2270; J2405; J2543; J7120; Q9967

== ENCOUNTER → 2025-01-21 17:02 | Outpatient (BNV) | payer BC, SELFPAY | PROVIDERS: Emergency Provider Emergency Medicine; PCP Internal Medicine; Visit Provider Nuclear Medicine | DX: K76.0 Fatty (change of) liver, not elsewhere classified (principal) | CPT/HCPCS: 76705 ==

== ENCOUNTER 2025-01-21 23:25 | Outpatient (BNV) | payer BC, SELFPAY | END 2025-01-21 23:50 | PROVIDERS: Admitting Provider Physician Assistant; Emergency Provider Emergency Medicine; PCP Internal Medicine; Visit Provider Internal Medicine Cardiovascular Disease | DX: Z13.6 Encounter for screening for cardiovascular disorders (principal) | CPT/HCPCS: 93010 ==

== ENCOUNTER → 2025-01-21 23:25 | Outpatient (BNV) | payer BC, SELFPAY | PROVIDERS: Admitting Provider Physician Assistant; Emergency Provider Emergency Medicine; PCP Internal Medicine; Visit Provider Internal Medicine | DX: R17 Unspecified jaundice (principal); R10.9 Unspecified abdominal pain; R79.89 Other specified abnormal findings of blood chemistry; B27.90 Infectious mononucleosis, unspecified without complication; E66.811 Obesity, class 1; F19.90 Other psychoactive substance use, unspecified, uncomplicated | CPT/HCPCS: 99222; 99231; 99232 ==

== ENCOUNTER → 2025-01-21 23:25 | Outpatient (BNV) | payer BC, SELFPAY | PROVIDERS: Admitting Provider Physician Assistant; Emergency Provider Emergency Medicine; PCP Internal Medicine; Visit Provider Internal Medicine Gastroenterology | DX: R10.9 Unspecified abdominal pain (principal); R74.01 Elevation of levels of liver transaminase levels | CPT/HCPCS: 99232; 99253 ==

== ENCOUNTER 2025-01-28 14:18 | Outpatient (REF) | payer BC, SELFPAY ==
--- OUTSIDE RECORDS SUMMARY | 2025-01-28 15:43 | XMS_ITS | Clinical Summary ---
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 Role Phone Niranjan Bal MD Primary Care Provider [phone] Allergies No known active allergies Medications ibuprofen [...] Encounters Date Type Department Care Team Description 01/24/2025 Telephone Adult Medicine [address] [phone] Niranjan Bal MD 01/13/2025 2:29 PM EDT - 01/13/2025 11:59 PM EDT Hospital Encounter [address] [phone] Acute pain of right knee Discharge Disposition: Home or Self Care 01/13/2025 2:28 PM EDT - 01/13/2025 11:59 PM EDT Hospital Encounter [address] [phone] Pain of right thigh Discharge Disposition: Home or Self Care 01/13/2025 2:00 PM EDT Office Visit Adult [address] [phone] Jenny Contreras, DIRECTOR OF MEDICARE Acute pain of right knee (Primary Dx); Pain of right thigh from Last 3 Months Immunizations Immunization Administration Dates Next Due DTaP (Infanrix) 6wks to less than 7yo ,05/07/1999,1998,05/18,1998 [id number] (Pentacel) 2mo to less than 5yo 01/19/1999,1998,1998,03/19 [...] Grandfather Relation Name Status Comments Father Alive 1973 Jaylon Maternal Grandfather Maternal Grandmother Mother Alive [...] for your loved ones. For example, child welfare specialist or elderly care for an older [...] Date Recorded What is your living situation? Unrecognized valu e 01/13/2025 Sex and Gender Information Value Date [...] Care Team (Late st Contact Info) Description 02/14/2025 10:30 AM EDT Office Visit Adult Medicine [address] [phone] Niranjan Bal MD [address] [place] [address] Health Maintenance Due Date Last Done Comments [...] Signed Date: 01/14/2025 00:07 ET Workstation ID: [id number] Transcribed By: Self Edit Transcribed Date: 01/14/2025 [...] Signed Date: 01/14/2025 00:07 ET Workstation ID: [id number] Transcribed By: Self Edit Transcribed Date: 01/14/2025 00:07 ET us Jenny Contreras DIRECTOR OF MEDICARE IMG XR PROCEDURES Final Resul t * XR Knee 4+ Views Right (01/13/2025 2:45 PM EDT) Anatomical Region Laterality Modality Lower Extremities, Knee Right Radiogra phic Imaging 01/14/2025 12:0 6 AM EDT Narrative [...] Signed Date: 01/14/2025 00:06 ET Workstation ID: [id number] Transcribed By: Self Edit Transcribed Date: 01/14/2025 [...] Signed Date: 01/14/2025 00:06 ET Workstation ID: [id number] Transcribed By: Self Edit Transcribed Date: 01/14/2025 00:06 ET Jenny Contreras DIRECTOR OF MEDICARE IMG XR PROCEDURES Final Resul t * Hepatitis C Screening (10/14/2021) Pathologist [facility] Hepatitis C Screening Abstracted Historical Provider HEALTH MAINTENANCE Final Result * HIV Screening (09/13/2021) [facility] HIV Screening Abstracted Historical Provider HEALTH MAINTENANCE Final Result * (ABNORMAL) Lipid panel (09/13/2021) [facility] LDL/HDL Ratio 6(A) 0 - 4 Triglycerides 270(A) 0 - 150 mg/dL Cholesterol 253(A) 0 - 200 mg/dL HDL 42 >=40 mg/dL LDL Cholesterol 157(A) 0 - 100 mg/dL Blood Venous blood specimen / Unknown us Historical Provider LAB BLOOD ORDERABLES Krystle l Result from Last 3 Months or Most Recently Relevant to Health Maintenance Insurance [facility] Care Teams Pellet Mill Operator Relationship Specialty Start Date End Date Niranjan Bal MD [address] [place] [address] PCP - General Internal Medicine 06/06/24
--- OUTSIDE RECORDS SUMMARY | 2025-01-28 15:43 | XMS_ITS | Encounter Summary ---
Author Organization [facility] Address [address] [place] [address] Care Team Providers Care Huc Ob Name Role Phone Niranjan Bal MD Primary Care Provider [phone] Reason for Visit * Reason Onset Date Comments Hospital Follow-up 01/24/2025 Encounter Details Date Type Department Care Team (Late st Contact Info) Description 01/24/2025 Telephone Adult Medicine [facility] [address] [place] [address] Niranjan Bal MD [address], [place] Social History Tobacco Use Types Packs/Day Years [...] for your loved ones. For example, child psychologist or elderly care for an older adult? [...] on file documented as of this encounter Progress Notes * Kristina Brown RN - 01/24/2025 10:36 AM EDT His appointment for 01/27/25 with Sharonda Contreras for an ER follow up was rescheduled for 02/14/25 at 10:30am with Dr. Bal and he is in agreement with this plan. He was instructed to call the office if he develops any new or worsening symptoms prior to his appointment. * Felipa Tali - 01/24/2025 9:37 AM EDT Hospital/ER follow up appointment needed Hospital patient was treated at: [facility] Was this only an ER visit or was the patient admitted to the hospital? Admitted to the hospital/kept overnight Date of visit if ER visit only: If patient was admitted what was the date of discharge? 01/24/25 Reason/diagnosis for visit or stay: [place] mono and colitis - [facility] hadn't been admitted at that point. When was the patient told to follow up? Within 1 week of discharge Was visit or stay related to an injury? If yes, what was the date of injury (DOI)? No If yes, was the injury due to: Not 3rd constitution party related documented in this encounter Plan of Treatment Upcoming Encounters Date Type Department Care Team (Late st Contact Info) Description 02/14/2025 10:30 AM EDT Office Visit Adult Medicine [address] [phone] Niranjan Bal MD [address] [place] [address] documented as of this encounter Visit Diagnoses Not on filedocumented in this encounter Additional Health Concerns Assessment Noted Time PHQ-9 Depression Total Score: 0 01/14/20 1:52 PM EDT documented as of this encounter Care Teams Huc Ob Relationship Specialty Start Date End Date Niranjan Bal MD [address] [place] [address] PCP - General Internal Medicine 06/06/24 documented as of this encounter
[2025-01-28 16:17] LABS: INTERNATIONAL NORM RATIO 1.0 (0.9-1.1); Prothrombin Time 11.6 SEC (10.9-12.4)
[2025-01-28 17:07] LABS: Alanine Aminotransferase 252 U/L (0-40); Albumin Level 3.9 g/dL (3.5-5.0); Alkaline Phosphatase 481 U/L (39-117); Anion Gap 12 (12-20); Aspartate Amino Transferase 151 U/L (5-37); Blood Urea Nitrogen 13 mg/dL (9-16); Calcium 9.2 mg/dL (8.4-10.2); Carbon Dioxide 27 mmol/L (22-29); Chloride 105 mmol/L (96-108); Estimated Glomerular Filt Rate > 60; Potassium 3.6 mmol/L (3.3-5.1); Sodium 140 mmol/L (135-145); Total Protein 7.7 g/dL (6.5-8.0)
== END 2025-01-28 14:19 | disposition home or self-care (01) ==
LOC: HO.HMGCLDS 14:18
PROVIDERS: PCP Internal Medicine; Visit Provider Internal Medicine
DX: R17 Unspecified jaundice (principal)
CPT/HCPCS: 36415; 80053; 83615; 85610